=== PATIENT | female | born 1935 | race Caucasian/White ===

== ENCOUNTER 2021-12-27 19:38 | Emergency (ER) | payer MEDICARE, OTHER ==
[~2021-12-27] VITALS: Ht 162.6 cm; Wt 93.9 kg
--- NOTE | 2021-12-27 20:19 | NUR ---
PATIENT FELIX ([facility] 56). RIGHT OUTER EYE PURPLISH DISCOLORATION FROM SNF. PATIENT IS A/O, PT ON VENT, VSS. PATIENT TAKEN TO ER BED 09. PATIENT CONNECTED TO MONITORS.
--- NOTE | 2021-12-27 20:22 | NUR ---
VENT SETTING: AC16, VT 400, 02 40%, +5
--- NOTE | 2021-12-27 21:32 | NUR ---
return from [place]
--- NOTE | 2021-12-27 22:10 | NUR ---
[facility] CALLED FOR BLS GOING BACK TO SNF PER JO - ETA 60 MIN
--- NOTE | 2021-12-27 22:33 | NUR ---
Report given to jordana Lopez at the Replaced by [facility].
--- NOTE | 2021-12-28 00:23 | NUR ---
[facility] CALLED FOR TRANSPORT. NO RT TRANSPORT AVAILABLE.
--- NOTE | 2021-12-28 08:02 | NUR ---
[facility] CALLED FOR TRANSPORT, NO ALS TRANSPORT AVAILABLE.
--- NOTE | 2021-12-28 08:08 | NUR ---
CALLED [facility] AND [facility], NEITHER HAVE RT AVAILABLE FOR TRANSPORT.
--- NOTE | 2021-12-28 08:19 | NUR ---
[facility] CALLED FOR RT TRANSPORT, ETA 1215.
--- NOTE | 2021-12-28 09:19 | NUR ---
PICKED UP BY [facility] WITH RT IN STABLE CONDITION
[2021-12-28 09:23] VITALS: BP 131/72
== END 2021-12-28 09:39 ==
LOC: ER 20:05
DX: S00.11XA Contusion of right eyelid and periocular area, initial encounter (principal); I11.0 Hypertensive heart disease with heart failure; I13.2 Hypertensive heart and chronic kidney disease with heart failure and with stage 5 chronic kidney disease, or end stage renal disease; N18.6 End stage renal disease; I50.9 Heart failure, unspecified; I48.91 Unspecified atrial fibrillation; E78.5 Hyperlipidemia, unspecified; F41.9 Anxiety disorder, unspecified; F32.A Depression, unspecified; Z88.0 Allergy status to penicillin; Z88.8 Allergy status to other drugs, medicaments and biological substances; X58.XXXA Exposure to other specified factors, initial encounter; Y93.89 Activity, other specified; Y92.89 Other specified places as the place of occurrence of the external cause; Y99.8 Other external cause status
CPT/HCPCS: 31720; 70450-TC; 70486-TC; 94799-TC

== ENCOUNTER 2022-12-15 07:15 | Inpatient (IN) | payer MEDICARE, OTHER ==
[~2022-12-15] VITALS: Ht 165.1 cm; Wt 102.1 kg
[2022-12-15] MEDS ORDERED: IV NS 0.9% 500 ML BAG IV ONE (07:30)
[2022-12-15 07:42] LABS: BASOPHILS % (AUTO) 0.2 % (0.0-2.0); EOSINOPHILS # (AUTO) 0.2 K/uL (0.0-0.7); EOSINOPHILS % (AUTO) 1.1 % (0.0-6.0); HEMATOCRIT 26 % (33-45); HEMOGLOBIN 8.3 g/dL (11.5-14.8); LYMPHOCYTES % (AUTO) 4.6 % (20.0-44.0); MEAN CORPUSCULAR HEMOGLOBIN 30 PG (26.0-33.0); MEAN CORPUSCULAR HGB CONC 32 g/dl (31.0-36.0); MEAN CORPUSCULAR VOLUME 92 fL (82-100); MONOCYTES # (AUTO) 1.4 K/uL (0.1-1.30); MONOCYTES % (AUTO) 6.3 % (2.0-12.0); NEUTROPHILS % (AUTO) 87.8 % (43.0-81.0); PLATELET COUNT (AUTO) 171 K/uL (150-450); RED BLOOD CELL COUNT(AUTO) 2.83 MIL/uL (4.0-5.2); RED CELL DISTRIBUTION WIDTH 17.3 % (11.5-15.0); WHITE BLOOD COUNT (AUTO) 21.7 K/uL (4.3-11.0)
[2022-12-15 07:53] LABS: INR 1.08 (0.91-1.10); PARTIAL THROMBOPLASTIN TIME 48.3 SEC (24.3-34.3); PROTHROMBIN TIME 11.4 SECS (9.2-11.1)
[2022-12-15 08:07] LABS: CALCIUM, SERUM 8.7 mg/dL (8.5-10.1); CARBON DIOXIDE 29 mmol/L (21-32); CHLORIDE 91 mmol/L (98-107); CREATININE 3.4 mg/dL (0.6-1.3); GLUCOSE 76 mg/dL (74-106); POTASSIUM 3.6 mmol/L (3.5-5.1); SODIUM SERUM 127 mmol/L (136-145); UREA NITROGEN, BLOOD 77 mg/dL (7-18)
[2022-12-15 08:14] LABS: ALANINE AMINOTRANSFERASE 21 U/L (12-78); ALBUMIN 2.3 g/dL (3.4-5.0); ALKALINE PHOSPHATASE 89 U/L (46-116); ASPARTATE AMINOTRANSFERASE 24 U/L (15-37); BILIRUBIN,DIRECT 0.2 mg/dL (0.0-0.2); BILIRUBIN,TOTAL 0.5 mg/dL (0.2-1.0)
[2022-12-15 08:16] LABS: LACTIC ACID 1.3 mmol/L (0.4-2.0)
[2022-12-15] MEDS ORDERED: VANCOMYCIN 1 GM in IV D5W 250 ML IV ONE (08:30)
[2022-12-15] MEDS ORDERED: LEVOFLOXACIN 750 MG /D5W 150ML PIGGYBACK IV ONE (08:30)
[2022-12-15] MEDS ORDERED: LEVOFLOXACIN 750 MG /D5W 150ML 150 ML IV ONE (08:35)
[2022-12-15] MEDS ORDERED: LEVOFLOXACIN 750 MG /D5W 150ML 750 MG in PREMIX 1 EA IV ONE (09:00)
[2022-12-15 09:25] LABS: ANISOCYTOSIS 1+; BAND % (MANUAL) 3 % (0.0-5.0); EOSINOPHILS % (MANUAL) 1 % (0-4); LYMPHOCYTES % (MANUAL) 5 % (16-48); MONOCYTES % (MANUAL) 7 % (0-11.0); NEUTROPHILS % (MANUAL) 84 (42-76); PLATELET ESTIMATE ADEQU
[2022-12-15] MEDS ORDERED: DIPH25TA62 GT (10:27)
[2022-12-15] MEDS ORDERED: ONDA-97 GT (10:27)
[2022-12-15] MEDS ORDERED: PEG15DRO8 EACHEYE (10:27)
[2022-12-15] MEDS ORDERED: GLUC1KIT IM (10:27)
[2022-12-15] MEDS ORDERED: AMIO200T5 GT (10:27)
[2022-12-15] MEDS ORDERED: LACT1TAB13 GT (10:27)
[2022-12-15] MEDS ORDERED: AMIN30LI2 GT (10:27)
[2022-12-15] MEDS ORDERED: IPRA3AMP22 IH (10:27)
[2022-12-15] MEDS ORDERED: POVI3780 TP (10:27)
[2022-12-15] MEDS ORDERED: INSU100V11 SQ (10:27)
[2022-12-15] MEDS ORDERED: BUSP5TAB3 GT (10:27)
[2022-12-15] MEDS ORDERED: POLY17PO4 GT (10:27)
[2022-12-15] MEDS ORDERED: OMEP40CA21 GT (10:27)
[2022-12-15] MEDS ORDERED: CHLO473M5 MM (10:27)
[2022-12-15] MEDS ORDERED: MIDO2.5T PO (10:27)
[2022-12-15] MEDS ORDERED: ACET-2605 GT (10:27)
[2022-12-15] MEDS ORDERED: NAPH1POW3 GT (10:27)
[2022-12-15] MEDS ORDERED: CLON0.5T GT (10:27)
[2022-12-15] MEDS ORDERED: NUT.237L85 GT (10:27)
[2022-12-15] MEDS ORDERED: ACET-868 GT (10:27)
[2022-12-15] MEDS ORDERED: INSU100I30 SQ (10:27)
[2022-12-15] MEDS ORDERED: TRIAD TP (10:27)
[2022-12-15 20:00] VITALS: BP 98/44; TEMP 98.5; O2SAT 100
[2022-12-15] MEDS: clonazePAM 0.5 MG TABLET GT SCH (21:42)
[2022-12-15] MEDS: MIDODRINE HCL (5MG) 5 MG TABLET PO SCH (21:42)
[2022-12-15] MEDS: INSULIN GLARGINE, 100 UNIT/ML CARTRIDGE SQ SCH (22:00)
[2022-12-16] VITALS: BP 106/45; TEMP 98.4; O2SAT 100
[2022-12-16] MEDS: MIDODRINE HCL (5MG) 5 MG TABLET PO SCH ×3 (05:53→21:20)
[2022-12-16 06:00] VITALS: BP 105/65; TEMP 97.5; O2SAT 100
[2022-12-16 08:00] VITALS: BP 97/48; TEMP 97.9; O2SAT 100
[2022-12-16] MEDS: busPIRone 5 MG TABLET GT SCH ×2 (08:58→16:49)
[2022-12-16] MEDS: clonazePAM 0.5 MG TABLET GT SCH ×2 (08:59→21:20)
[2022-12-16] MEDS: AMIODARONE HCL 200 MG TABLET GT SCH (09:00)
[2022-12-16] MEDS ORDERED: MEROPENEM 500 MG in IV NS 0.9% 50 ML IV SCH (10:00)
[2022-12-16] MEDS ORDERED: ACETAMINOPHEN 325 MG TABLET PO PRN (10:00)
[2022-12-16] MEDS ORDERED: Z GUARD REMEDY 4 OZ OINT TP PRN (10:00)
[2022-12-16] MEDS ORDERED: ONDANSETRON HCL/PF 4 MG/2 ML VIAL IVP PRN (10:00)
[2022-12-16] MEDS ORDERED: VANCOMYCIN 500 MG in IV D5W 100 ML IV PRN (10:30)
[2022-12-16 11:39] LABS: LACTIC ACID 1.1 mmol/L (0.4-2.0)
[2022-12-16 11:43] LABS: THYROID STIMULATING HORMONE 2.394 uIU/mL (0.358-3.74)
[2022-12-16 12:00] VITALS: BP 97/48; TEMP 97.4; O2SAT 99
[2022-12-16 16:00] VITALS: BP 102/45; TEMP 98.4; O2SAT 99
[2022-12-16] MEDS: CLOTRIMAZOLE/BETAMETASONE DIPROPIONATE 15 GM TUBE TP SCH (16:50)
[2022-12-16] MEDS ORDERED: DEXTROSE 50%-WATER 50 ML DISP.SYRIN IV PRN (17:00)
[2022-12-16] MEDS ORDERED: diphenhydrAMINE HCL 50 MG/ML VIAL IV PRN (18:30)
[2022-12-16] MEDS: BLOOD SUGAR DIAGNOSTIC 1 EACH STRIP IN SCH (18:35)
[2022-12-16 20:00] VITALS: BP 101/60; TEMP 98.5; O2SAT 99
[2022-12-16] MEDS ORDERED: VANCOMYCIN 500 MG in IV D5W 100ml IV ONE (21:00)
[2022-12-16] MEDS: HEPARIN SODIUM, PORCINE 5000 UNITS/1 ML VIAL SQ SCH (21:24)
[2022-12-16] MEDS: INSULIN GLARGINE, 100 UNIT/ML CARTRIDGE SQ SCH (22:00)
[2022-12-16] MEDS: INSULIN REGULAR, HUMAN 100 UNIT/ML 3 ML VIAL SQ PRN (23:32)
[2022-12-17] VITALS: BP 105/65; TEMP 97.8; O2SAT 99
[2022-12-17 04:00] VITALS: BP_SYST 109; BP_SYST 110; BP_DIAS 66; BP_DIAS 75; TEMP 208.8; TEMP 97.5; TEMP 98.2; O2SAT 99
[2022-12-17 04:49] LABS: ABG BASE EXCESS 0.8 mmol/L; ABG OXYGEN SATURATION 98.9 % (92.0-98.5); ABG PCO2 39.2 mmHg (35.0-45.0); ABG PH 7.425 (7.350-7.450); ABG PO2 132.6 mmHg (75.0-100.0); ABG TOTAL HEMOGLOBIN 10.4 G/dL (12.0-16.0); AaDO2 71.4 mmHg; COHb 0.8 % (0.5-1.5); MetHb 0.1 % (0.0-1.5); PEEP,BG 5 cm H2O; SITE, ABG Left Radial; VT, ABG 400 mL
[2022-12-17] MEDS: MIDODRINE HCL (5MG) 5 MG TABLET PO SCH ×3 (05:39→21:33)
[2022-12-17 06:08] LABS: BASOPHILS % (AUTO) 0.3 % (0.0-2.0); EOSINOPHILS # (AUTO) 0.8 K/uL (0.0-0.7); EOSINOPHILS % (AUTO) 11.2 % (0.0-6.0); HEMATOCRIT 26 % (33-45); HEMOGLOBIN 8.5 g/dL (11.5-14.8); LYMPHOCYTES # (AUTO) 0.8 K/uL (0.8-4.8); LYMPHOCYTES % (AUTO) 10.1 % (20.0-44.0); MEAN CORPUSCULAR HEMOGLOBIN 29 PG (26.0-33.0); MEAN CORPUSCULAR HGB CONC 32 g/dl (31.0-36.0); MEAN CORPUSCULAR VOLUME 91 fL (82-100); MONOCYTES # (AUTO) 0.8 K/uL (0.1-1.30); MONOCYTES % (AUTO) 10.1 % (2.0-12.0); NEUTROPHILS # (AUTO) 5.1 K/uL (1.8-8.9); NEUTROPHILS % (AUTO) 68.3 % (43.0-81.0); PLATELET COUNT (AUTO) 164 K/uL (150-450); RED CELL DISTRIBUTION WIDTH 17.2 % (11.5-15.0); WHITE BLOOD COUNT (AUTO) 7.5 K/uL (4.3-11.0)
[2022-12-17] MEDS: INSULIN REGULAR, HUMAN 100 UNIT/ML 3 ML VIAL SQ PRN ×4 (06:29→23:22)
[2022-12-17] MEDS: BLOOD SUGAR DIAGNOSTIC 1 EACH STRIP IN SCH ×5 (06:36→23:19)
[2022-12-17 06:58] LABS: ALANINE AMINOTRANSFERASE 21 U/L (12-78); ALBUMIN 2.3 g/dL (3.4-5.0); ALKALINE PHOSPHATASE 80 U/L (46-116); ASPARTATE AMINOTRANSFERASE 20 U/L (15-37); BILIRUBIN,TOTAL 0.4 mg/dL (0.2-1.0); CALCIUM, SERUM 8.8 mg/dL (8.5-10.1); CARBON DIOXIDE 27 mmol/L (21-32); CHLORIDE 92 mmol/L (98-107); CREATININE 4.8 mg/dL (0.6-1.3); GLUCOSE 170 mg/dL (74-106); MAGNESIUM 2.5 mg/dL (1.8-2.4); PHOSPHORUS 5.1 mg/dL (2.5-4.9); POTASSIUM 3.9 mmol/L (3.5-5.1); SODIUM SERUM 131 mmol/L (136-145); TOTAL PROTEIN, SERUM 6.9 g/dL (6.4-8.2)
[2022-12-17 07:01] LABS: UREA NITROGEN, BLOOD 99 mg/dL (7-18)
[2022-12-17 07:03] LABS: IRON, SERUM 46 ug/dl (50-175); TOTAL IRON BINDING CAPACITY 140 ug/dl (250-450)
[2022-12-17 07:17] LABS: FERRITIN 4644 ng/mL (8-388)
[2022-12-17 08:00] VITALS: BP 114/58; TEMP 97.9; O2SAT 100
[2022-12-17] MEDS: THERAHONEY GEL 1.5 OZ TUBE TP SCH (08:07)
[2022-12-17] MEDS: CLOTRIMAZOLE/BETAMETASONE DIPROPIONATE 15 GM TUBE TP SCH ×2 (08:07→16:29)
[2022-12-17] MEDS: busPIRone 5 MG TABLET GT SCH ×2 (08:13→16:31)
[2022-12-17] MEDS: AMIODARONE HCL 200 MG TABLET GT SCH (08:13)
[2022-12-17] MEDS: clonazePAM 0.5 MG TABLET GT SCH ×2 (08:13→21:32)
[2022-12-17] MEDS: HEPARIN SODIUM, PORCINE 5000 UNITS/1 ML VIAL SQ SCH ×2 (08:15→21:34)
[2022-12-17] MEDS ORDERED: EPOETIN ALFA (10,000 UNIT) 10,000 UNIT/ML VIAL IV ONE ×2 (08:30→19:00)
[2022-12-17] MEDS: PROSOURCE / PROSTAT (PYXIS) 30 ML UDC GT SCH ×2 (10:04→16:29)
[2022-12-17] MEDS: MEROPENEM 500 MG in IV NS 0.9% 50 ML IV SCH (11:14)
[2022-12-17 12:00] VITALS: BP 110/49; TEMP 97.6; O2SAT 100
[2022-12-17 16:00] VITALS: BP 106/46; TEMP 99; O2SAT 100
[2022-12-17 18:00] LABS: HIV-1 p24 ANTIGEN NON REACTIVE (NONREACTIVE); HIV-1/2 ANTIBODY NON REACTIVE (NONREACTIVE)
[2022-12-17] MEDS ORDERED: EPOETIN ALFA-EPBX 10,000 UNIT/ML VIAL IV ONE (19:00)
[2022-12-17] MEDS: ALBUMIN 25% 25 GM in PREMIX 1 EA IV PRN (19:31)
[2022-12-17 20:00] VITALS: BP 98/49; TEMP 98; O2SAT 100
[2022-12-17] MEDS: NEPRO 1,000 ML BOTTLE GT PRN (23:01)
[2022-12-17] MEDS: INSULIN GLARGINE, 100 UNIT/ML CARTRIDGE SQ SCH (23:17)
[2022-12-18] VITALS: BP 121/49; TEMP 98.5; O2SAT 100
[2022-12-18 04:00] VITALS: BP 118/49; TEMP 98; O2SAT 100
[2022-12-18] MEDS: MIDODRINE HCL (5MG) 5 MG TABLET PO SCH ×3 (04:46→20:53)
[2022-12-18] MEDS: BLOOD SUGAR DIAGNOSTIC 1 EACH STRIP IN SCH ×4 (05:09→23:24)
[2022-12-18] MEDS: INSULIN REGULAR, HUMAN 100 UNIT/ML 3 ML VIAL SQ PRN ×3 (05:12→23:25)
[2022-12-18 06:21] LABS: BASOPHILS % (AUTO) 0.4 % (0.0-2.0); EOSINOPHILS # (AUTO) 0.6 K/uL (0.0-0.7); EOSINOPHILS % (AUTO) 10.7 % (0.0-6.0); HEMATOCRIT 27 % (33-45); HEMOGLOBIN 8.5 g/dL (11.5-14.8); LYMPHOCYTES # (AUTO) 0.6 K/uL (0.8-4.8); MEAN CORPUSCULAR HEMOGLOBIN 29 PG (26.0-33.0); MEAN CORPUSCULAR HGB CONC 32 g/dl (31.0-36.0); MEAN CORPUSCULAR VOLUME 92 fL (82-100); MONOCYTES # (AUTO) 0.6 K/uL (0.1-1.30); MONOCYTES % (AUTO) 11.2 % (2.0-12.0); NEUTROPHILS # (AUTO) 3.7 K/uL (1.8-8.9); NEUTROPHILS % (AUTO) 66.7 % (43.0-81.0); PLATELET COUNT (AUTO) 144 K/uL (150-450); RED BLOOD CELL COUNT(AUTO) 2.91 MIL/uL (4.0-5.2); RED CELL DISTRIBUTION WIDTH 17.3 % (11.5-15.0); WHITE BLOOD COUNT (AUTO) 5.5 K/uL (4.3-11.0)
[2022-12-18 06:49] LABS: ALANINE AMINOTRANSFERASE 16 U/L (12-78); ALBUMIN 2.5 g/dL (3.4-5.0); ALKALINE PHOSPHATASE 69 U/L (46-116); ASPARTATE AMINOTRANSFERASE 15 U/L (15-37); BILIRUBIN,TOTAL 0.3 mg/dL (0.2-1.0); CALCIUM, SERUM 8.8 mg/dL (8.5-10.1); CARBON DIOXIDE 26 mmol/L (21-32); CHLORIDE 102 mmol/L (98-107); CREATININE 3.2 mg/dL (0.6-1.3); GLUCOSE 222 mg/dL (74-106); MAGNESIUM 2.4 mg/dL (1.8-2.4); PHOSPHORUS 3.1 mg/dL (2.5-4.9); POTASSIUM 3.6 mmol/L (3.5-5.1); SODIUM SERUM 139 mmol/L (136-145); TOTAL PROTEIN, SERUM 6.7 g/dL (6.4-8.2); UREA NITROGEN, BLOOD 54 mg/dL (7-18)
[2022-12-18 08:00] VITALS: BP 113/56; TEMP 98.6; O2SAT 100
[2022-12-18] MEDS: clonazePAM 0.5 MG TABLET GT SCH ×2 (08:50→20:49)
[2022-12-18] MEDS: PROSOURCE / PROSTAT (PYXIS) 30 ML UDC GT SCH ×2 (08:51→18:25)
[2022-12-18] MEDS: busPIRone 5 MG TABLET GT SCH ×2 (08:51→18:27)
[2022-12-18] MEDS: AMIODARONE HCL 200 MG TABLET GT SCH (08:51)
[2022-12-18] MEDS: HEPARIN SODIUM, PORCINE 5000 UNITS/1 ML VIAL SQ SCH ×2 (08:51→20:54)
[2022-12-18] MEDS: CLOTRIMAZOLE/BETAMETASONE DIPROPIONATE 15 GM TUBE TP SCH ×2 (08:52→17:00)
[2022-12-18] MEDS: THERAHONEY GEL 1.5 OZ TUBE TP SCH (08:52)
[2022-12-18 12:00] VITALS: BP 118/61; TEMP 98.8; O2SAT 100
[2022-12-18] MEDS: MEROPENEM 500 MG in IV NS 0.9% 50 ML IV SCH (12:41)
[2022-12-18 16:00] VITALS: BP 123/52; TEMP 98.7; O2SAT 100
[2022-12-18 20:00] VITALS: BP 127/52; TEMP 99.2; O2SAT 100
[2022-12-18] MEDS: NEPRO 1,000 ML BOTTLE GT PRN (20:47)
[2022-12-18] MEDS: INSULIN GLARGINE, 100 UNIT/ML CARTRIDGE SQ SCH (23:30)
[2022-12-19] VITALS: BP 128/56; TEMP 99; O2SAT 98
[2022-12-19 04:00] VITALS: BP 132/63; TEMP 98.8; O2SAT 100
[2022-12-19] MEDS: MIDODRINE HCL (5MG) 5 MG TABLET PO SCH ×3 (05:14→21:00)
[2022-12-19] MEDS: BLOOD SUGAR DIAGNOSTIC 1 EACH STRIP IN SCH ×4 (05:44→23:28)
[2022-12-19 06:20] LABS: BASOPHILS % (AUTO) 0.4 % (0.0-2.0); EOSINOPHILS # (AUTO) 0.8 K/uL (0.0-0.7); EOSINOPHILS % (AUTO) 11.7 % (0.0-6.0); HEMATOCRIT 29 % (33-45); LYMPHOCYTES # (AUTO) 0.9 K/uL (0.8-4.8); LYMPHOCYTES % (AUTO) 13.1 % (20.0-44.0); MEAN CORPUSCULAR HEMOGLOBIN 29 PG (26.0-33.0); MEAN CORPUSCULAR HGB CONC 31 g/dl (31.0-36.0); MEAN CORPUSCULAR VOLUME 93 fL (82-100); MONOCYTES # (AUTO) 0.6 K/uL (0.1-1.30); MONOCYTES % (AUTO) 9.6 % (2.0-12.0); NEUTROPHILS # (AUTO) 4.2 K/uL (1.8-8.9); NEUTROPHILS % (AUTO) 65.2 % (43.0-81.0); PLATELET COUNT (AUTO) 158 K/uL (150-450); RED BLOOD CELL COUNT(AUTO) 3.08 MIL/uL (4.0-5.2); WHITE BLOOD COUNT (AUTO) 6.5 K/uL (4.3-11.0)
[2022-12-19] MEDS: INSULIN REGULAR, HUMAN 100 UNIT/ML 3 ML VIAL SQ PRN ×4 (06:27→23:29)
[2022-12-19 06:50] LABS: ALANINE AMINOTRANSFERASE 16 U/L (12-78); ALBUMIN 2.5 g/dL (3.4-5.0); ALKALINE PHOSPHATASE 67 U/L (46-116); ASPARTATE AMINOTRANSFERASE 11 U/L (15-37); BILIRUBIN,TOTAL 0.3 mg/dL (0.2-1.0); CALCIUM, SERUM 9.1 mg/dL (8.5-10.1); CARBON DIOXIDE 29 mmol/L (21-32); CHLORIDE 104 mmol/L (98-107); CREATININE 2.7 mg/dL (0.6-1.3); GLUCOSE 213 mg/dL (74-106); MAGNESIUM 2.2 mg/dL (1.8-2.4); PHOSPHORUS 2.7 mg/dL (2.5-4.9); POTASSIUM 3.8 mmol/L (3.5-5.1); SODIUM SERUM 141 mmol/L (136-145); UREA NITROGEN, BLOOD 38 mg/dL (7-18)
[2022-12-19 08:00] VITALS: BP 150/69; TEMP 98.4; O2SAT 100
[2022-12-19 08:34] LABS: ANISOCYTOSIS 1+; BAND % (MANUAL) 2 % (0.0-5.0); EOSINOPHILS % (MANUAL) 13 % (0-4); LYMPHOCYTES % (MANUAL) 11 % (16-48); MONOCYTES % (MANUAL) 9 % (0-11.0); MYELOCYTES % 2 % (0-0); NEUTROPHILS % (MANUAL) 63 (42-76); PLATELET ESTIMATE ADEQUATE
[2022-12-19] MEDS: PROSOURCE / PROSTAT (PYXIS) 30 ML UDC GT SCH ×2 (09:35→17:16)
[2022-12-19] MEDS: clonazePAM 0.5 MG TABLET GT SCH ×2 (09:35→21:44)
[2022-12-19] MEDS: HEPARIN SODIUM, PORCINE 5000 UNITS/1 ML VIAL SQ SCH ×2 (09:36→21:46)
[2022-12-19] MEDS: busPIRone 5 MG TABLET GT SCH ×2 (09:37→17:16)
[2022-12-19] MEDS: THERAHONEY GEL 1.5 OZ TUBE TP SCH (09:37)
[2022-12-19] MEDS: CLOTRIMAZOLE/BETAMETASONE DIPROPIONATE 15 GM TUBE TP SCH ×2 (09:37→17:16)
[2022-12-19] MEDS: AMIODARONE HCL 200 MG TABLET GT SCH (09:37)
[2022-12-19 12:00] VITALS: BP 134/54; TEMP 98; O2SAT 100
[2022-12-19] MEDS: MEROPENEM 500 MG in IV NS 0.9% 50 ML IV SCH (13:15)
[2022-12-19 16:00] VITALS: BP 131/49; TEMP 98; O2SAT 100
[2022-12-19] MEDS: IV NS 0.9% 1,000 ML IV PRN (16:22)
[2022-12-19 20:00] VITALS: BP 147/62; TEMP 98.4; O2SAT 100
[2022-12-19] MEDS: INSULIN GLARGINE, 100 UNIT/ML CARTRIDGE SQ SCH (23:30)
[2022-12-20] VITALS: BP 157/56; TEMP 97.8; O2SAT 100
[2022-12-20] MEDS: NEPRO 1,000 ML BOTTLE GT PRN (00:13)
[2022-12-20 04:07] VITALS: BP 109/71; TEMP 98.2; O2SAT 100
[2022-12-20] MEDS: BLOOD SUGAR DIAGNOSTIC 1 EACH STRIP IN SCH ×3 (05:08→16:31)
[2022-12-20] MEDS: MIDODRINE HCL (5MG) 5 MG TABLET PO SCH ×3 (05:10→20:56)
[2022-12-20] MEDS: INSULIN REGULAR, HUMAN 100 UNIT/ML 3 ML VIAL SQ PRN ×2 (05:11→11:45)
[2022-12-20 06:16] LABS: BASOPHILS % (AUTO) 0.3 % (0.0-2.0); EOSINOPHILS # (AUTO) 0.9 K/uL (0.0-0.7); HEMATOCRIT 28 % (33-45); HEMOGLOBIN 8.8 g/dL (11.5-14.8); LYMPHOCYTES % (AUTO) 11.4 % (20.0-44.0); MEAN CORPUSCULAR HEMOGLOBIN 29 PG (26.0-33.0); MEAN CORPUSCULAR HGB CONC 31 g/dl (31.0-36.0); MEAN CORPUSCULAR VOLUME 94 fL (82-100); MONOCYTES # (AUTO) 0.8 K/uL (0.1-1.30); MONOCYTES % (AUTO) 8.9 % (2.0-12.0); NEUTROPHILS # (AUTO) 6.3 K/uL (1.8-8.9); NEUTROPHILS % (AUTO) 69.4 % (43.0-81.0); PLATELET COUNT (AUTO) 178 K/uL (150-450); RED BLOOD CELL COUNT(AUTO) 3.02 MIL/uL (4.0-5.2); RED CELL DISTRIBUTION WIDTH 17.7 % (11.5-15.0); WHITE BLOOD COUNT (AUTO) 9.1 K/uL (4.3-11.0)
[2022-12-20 06:30] LABS: CALCIUM, SERUM 9.3 mg/dL (8.5-10.1); CARBON DIOXIDE 28 mmol/L (21-32); CHLORIDE 104 mmol/L (98-107); GLUCOSE 175 mg/dL (74-106); SODIUM SERUM 142 mmol/L (136-145)
[2022-12-20 06:31] LABS: ALANINE AMINOTRANSFERASE 14 U/L (12-78); ALBUMIN 2.5 g/dL (3.4-5.0); ALKALINE PHOSPHATASE 66 U/L (46-116); ASPARTATE AMINOTRANSFERASE 15 U/L (15-37); BILIRUBIN,TOTAL 0.3 mg/dL (0.2-1.0); CREATININE 3.4 mg/dL (0.6-1.3); MAGNESIUM 2.5 mg/dL (1.8-2.4); PHOSPHORUS 3.3 mg/dL (2.5-4.9); TOTAL PROTEIN, SERUM 6.9 g/dL (6.4-8.2); UREA NITROGEN, BLOOD 63 mg/dL (7-18)
[2022-12-20 08:00] VITALS: BP 148/82; TEMP 98.2; O2SAT 100
[2022-12-20 09:21] LABS: EOSINOPHILS % (MANUAL) 8 % (0-4); LYMPHOCYTES % (MANUAL) 9 % (16-48); MONOCYTES % (MANUAL) 5 % (0-11.0); MYELOCYTES % 5 % (0-0); NEUTROPHILS % (MANUAL) 73 (42-76); PLATELET ESTIMATE ADEQUATE
[2022-12-20] MEDS: clonazePAM 0.5 MG TABLET GT SCH ×2 (09:53→20:55)
[2022-12-20] MEDS: CLOTRIMAZOLE/BETAMETASONE DIPROPIONATE 15 GM TUBE TP SCH ×2 (09:53→16:34)
[2022-12-20] MEDS: THERAHONEY GEL 1.5 OZ TUBE TP SCH (09:53)
[2022-12-20] MEDS: busPIRone 5 MG TABLET GT SCH ×2 (09:53→16:32)
[2022-12-20] MEDS: PROSOURCE / PROSTAT (PYXIS) 30 ML UDC GT SCH ×2 (09:53→16:31)
[2022-12-20] MEDS: HEPARIN SODIUM, PORCINE 5000 UNITS/1 ML VIAL SQ SCH ×2 (09:55→21:00)
[2022-12-20] MEDS: AMIODARONE HCL 200 MG TABLET GT SCH (09:58)
[2022-12-20] MEDS: MEROPENEM 500 MG in IV NS 0.9% 50 ML IV SCH (11:43)
[2022-12-20 12:00] VITALS: BP 122/55; TEMP 98.3; O2SAT 100
[2022-12-20 16:00] VITALS: BP 122/72; TEMP 98.5; O2SAT 100
[2022-12-20] MEDS: IV NS 0.9% 1,000 ML IV PRN (16:31)
[2022-12-20 20:00] VITALS: BP 127/59; TEMP 98.4; O2SAT 100
[2022-12-20] MEDS: INSULIN GLARGINE, 100 UNIT/ML CARTRIDGE SQ SCH (22:34)
[2022-12-21] VITALS: BP 158/69; TEMP 98.4; O2SAT 100
[2022-12-21] MEDS: BLOOD SUGAR DIAGNOSTIC 1 EACH STRIP IN SCH ×4 (00:42→18:04)
[2022-12-21] MEDS: INSULIN REGULAR, HUMAN 100 UNIT/ML 3 ML VIAL SQ PRN (00:44)
[2022-12-21 04:00] VITALS: BP 145/63; TEMP 98.1; O2SAT 100
[2022-12-21] MEDS: IV NS 0.9% 1,000 ML IV PRN (04:57)
[2022-12-21] MEDS: MIDODRINE HCL (5MG) 5 MG TABLET PO SCH ×3 (05:17→20:56)
[2022-12-21 06:22] LABS: BASOPHILS % (AUTO) 0.4 % (0.0-2.0); EOSINOPHILS # (AUTO) 1.1 K/uL (0.0-0.7); HEMATOCRIT 29 % (33-45); HEMOGLOBIN 9.1 g/dL (11.5-14.8); LYMPHOCYTES # (AUTO) 1.3 K/uL (0.8-4.8); LYMPHOCYTES % (AUTO) 13.1 % (20.0-44.0); MEAN CORPUSCULAR HEMOGLOBIN 30 PG (26.0-33.0); MEAN CORPUSCULAR HGB CONC 31 g/dl (31.0-36.0); MEAN CORPUSCULAR VOLUME 96 fL (82-100); MONOCYTES # (AUTO) 0.7 K/uL (0.1-1.30); MONOCYTES % (AUTO) 7.3 % (2.0-12.0); NEUTROPHILS # (AUTO) 6.6 K/uL (1.8-8.9); NEUTROPHILS % (AUTO) 68.2 % (43.0-81.0); PLATELET COUNT (AUTO) 176 K/uL (150-450); RED BLOOD CELL COUNT(AUTO) 3.08 MIL/uL (4.0-5.2); RED CELL DISTRIBUTION WIDTH 17.9 % (11.5-15.0); WHITE BLOOD COUNT (AUTO) 9.7 K/uL (4.3-11.0)
[2022-12-21 06:40] LABS: ALANINE AMINOTRANSFERASE 16 U/L (12-78); ALBUMIN 2.5 g/dL (3.4-5.0); ALKALINE PHOSPHATASE 65 U/L (46-116); ASPARTATE AMINOTRANSFERASE 16 U/L (15-37); BILIRUBIN,TOTAL 0.4 mg/dL (0.2-1.0); CALCIUM, SERUM 8.6 mg/dL (8.5-10.1); CARBON DIOXIDE 26 mmol/L (21-32); CHLORIDE 107 mmol/L (98-107); CREATININE 2.8 mg/dL (0.6-1.3); GLUCOSE 125 mg/dL (74-106); MAGNESIUM 2.1 mg/dL (1.8-2.4); PHOSPHORUS 3.4 mg/dL (2.5-4.9); POTASSIUM 3.9 mmol/L (3.5-5.1); SODIUM SERUM 141 mmol/L (136-145); TOTAL PROTEIN, SERUM 7.1 g/dL (6.4-8.2); UREA NITROGEN, BLOOD 47 mg/dL (7-18)
[2022-12-21 07:34] LABS: EOSINOPHILS % (MANUAL) 3 % (0-4); LYMPHOCYTES % (MANUAL) 18 % (16-48); MONOCYTES % (MANUAL) 8 % (0-11.0); NEUTROPHILS % (MANUAL) 71 (42-76); PLATELET ESTIMATE ADEQUATE
[2022-12-21 08:00] VITALS: BP 145/66; TEMP 98.4; O2SAT 100
[2022-12-21] MEDS: busPIRone 5 MG TABLET GT SCH ×2 (09:31→16:29)
[2022-12-21] MEDS: PROSOURCE / PROSTAT (PYXIS) 30 ML UDC GT SCH ×2 (09:32→16:31)
[2022-12-21] MEDS: clonazePAM 0.5 MG TABLET GT SCH ×2 (09:32→20:56)
[2022-12-21] MEDS: THERAHONEY GEL 1.5 OZ TUBE TP SCH (09:40)
[2022-12-21] MEDS: CLOTRIMAZOLE/BETAMETASONE DIPROPIONATE 15 GM TUBE TP SCH ×2 (09:40→16:32)
[2022-12-21] MEDS: HEPARIN SODIUM, PORCINE 5000 UNITS/1 ML VIAL SQ SCH ×2 (09:43→20:58)
[2022-12-21] MEDS: AMIODARONE HCL 200 MG TABLET GT SCH (09:49)
[2022-12-21 12:00] VITALS: BP 127/57; TEMP 97.5; O2SAT 100
[2022-12-21] MEDS: MEROPENEM 500 MG in IV NS 0.9% 50 ML IV SCH (12:13)
[2022-12-21 16:00] VITALS: BP 139/66; TEMP 97.5; O2SAT 100
[2022-12-21 20:00] VITALS: BP 122/49; TEMP 98.6; O2SAT 98
[2022-12-21] MEDS: NEPRO 1,000 ML BOTTLE GT PRN (20:18)
[2022-12-21] MEDS: INSULIN GLARGINE, 100 UNIT/ML CARTRIDGE SQ SCH (22:53)
[2022-12-22] VITALS: BP 130/62; TEMP 98.2; O2SAT 100
[2022-12-22] MEDS: BLOOD SUGAR DIAGNOSTIC 1 EACH STRIP IN SCH ×4 (01:19→17:45)
[2022-12-22] MEDS: INSULIN REGULAR, HUMAN 100 UNIT/ML 3 ML VIAL SQ PRN ×4 (01:19→17:48)
[2022-12-22 04:00] VITALS: BP 152/66; TEMP 98; O2SAT 98
[2022-12-22] MEDS: MIDODRINE HCL (5MG) 5 MG TABLET PO SCH ×2 (05:00→12:42)
[2022-12-22 07:00] LABS: BASOPHILS % (AUTO) 0.3 % (0.0-2.0); EOSINOPHILS # (AUTO) 1.2 K/uL (0.0-0.7); EOSINOPHILS % (AUTO) 12.9 % (0.0-6.0); HEMATOCRIT 30 % (33-45); HEMOGLOBIN 9.2 g/dL (11.5-14.8); LYMPHOCYTES # (AUTO) 1.1 K/uL (0.8-4.8); LYMPHOCYTES % (AUTO) 11.6 % (20.0-44.0); MEAN CORPUSCULAR HEMOGLOBIN 29 PG (26.0-33.0); MEAN CORPUSCULAR HGB CONC 31 g/dl (31.0-36.0); MEAN CORPUSCULAR VOLUME 95 fL (82-100); MONOCYTES # (AUTO) 0.5 K/uL (0.1-1.30); MONOCYTES % (AUTO) 5.2 % (2.0-12.0); NEUTROPHILS # (AUTO) 6.5 K/uL (1.8-8.9); PLATELET COUNT (AUTO) 206 K/uL (150-450); RED BLOOD CELL COUNT(AUTO) 3.15 MIL/uL (4.0-5.2); RED CELL DISTRIBUTION WIDTH 17.6 % (11.5-15.0); WHITE BLOOD COUNT (AUTO) 9.3 K/uL (4.3-11.0)
[2022-12-22 07:15] LABS: ALANINE AMINOTRANSFERASE 16 U/L (12-78); ALBUMIN 2.6 g/dL (3.4-5.0); ALKALINE PHOSPHATASE 68 U/L (46-116); ASPARTATE AMINOTRANSFERASE 15 U/L (15-37); BILIRUBIN,TOTAL 0.4 mg/dL (0.2-1.0); CARBON DIOXIDE 24 mmol/L (21-32); CHLORIDE 108 mmol/L (98-107); CREATININE 3.5 mg/dL (0.6-1.3); GLUCOSE 157 mg/dL (74-106); MAGNESIUM 2.4 mg/dL (1.8-2.4); PHOSPHORUS 4.8 mg/dL (2.5-4.9); POTASSIUM 4.2 mmol/L (3.5-5.1); SODIUM SERUM 143 mmol/L (136-145); TOTAL PROTEIN, SERUM 7.1 g/dL (6.4-8.2); UREA NITROGEN, BLOOD 63 mg/dL (7-18)
[2022-12-22 08:00] VITALS: BP 154/53; TEMP 98; O2SAT 98
[2022-12-22] MEDS: THERAHONEY GEL 1.5 OZ TUBE TP SCH (09:01)
[2022-12-22] MEDS: CLOTRIMAZOLE/BETAMETASONE DIPROPIONATE 15 GM TUBE TP SCH ×2 (09:01→16:46)
[2022-12-22] MEDS: PROSOURCE / PROSTAT (PYXIS) 30 ML UDC GT SCH ×2 (09:07→16:46)
[2022-12-22] MEDS: AMIODARONE HCL 200 MG TABLET GT SCH (09:07)
[2022-12-22] MEDS: clonazePAM 0.5 MG TABLET GT SCH (09:07)
[2022-12-22] MEDS: busPIRone 5 MG TABLET GT SCH ×2 (09:07→17:00)
[2022-12-22] MEDS: HEPARIN SODIUM, PORCINE 5000 UNITS/1 ML VIAL SQ SCH (09:08)
[2022-12-22 09:56] LABS: EOSINOPHILS % (MANUAL) 15 % (0-4); LYMPHOCYTES % (MANUAL) 10 % (16-48); MONOCYTES % (MANUAL) 6 % (0-11.0); MYELOCYTES % 1 % (0-0); NEUTROPHILS % (MANUAL) 68 (42-76); PLATELET ESTIMATE ADEQUATE
[2022-12-22 12:00] VITALS: BP 117/48; TEMP 98.1; O2SAT 99
[2022-12-22] MEDS: ALBUMIN 25% 25 GM in PREMIX 1 EA IV PRN (15:41)
[2022-12-22 16:00] VITALS: BP 125/45; TEMP 98.4; O2SAT 100
[2022-12-23 02:07] LABS: HEPATITIS B SURFACE AB Non Reactive (.)
== END 2022-12-22 20:07 | DRG 870 ==
LOC: ER 07:29 → TELE-TD 20:12 → TELE1 12-18 09:53
PROVIDERS: ADMIT Nurse Practitioner Acute Care
PROC: 5A1955Z Respiratory Ventilation, Greater than 96 Consecutive Hours (ICD-10-PCS; principal; 2022-12-15)
PROC: 5A1D70Z Performance of Urinary Filtration, Intermittent, Less than 6 Hours Per Day (ICD-10-PCS; 2022-12-17)
PROC: 05HF33Z Insertion of Infusion Device into Left Cephalic Vein, Percutaneous Approach (ICD-10-PCS; 2022-12-20)
DX: A41.9 Sepsis, unspecified organism (principal); L89.523 Pressure ulcer of left ankle, stage 3; J15.69 Pneumonia due to other Gram-negative bacteria; I21.A1 Myocardial infarction type 2; N18.6 End stage renal disease; R53.2 Functional quadriplegia; D68.59 Other primary thrombophilia; J96.10 Chronic respiratory failure, unspecified whether with hypoxia or hypercapnia; I13.2 Hypertensive heart and chronic kidney disease with heart failure and with stage 5 chronic kidney disease, or end stage renal disease; Z99.11 Dependence on respirator [ventilator] status; J90 Pleural effusion, not elsewhere classified; E87.1 Hypo-osmolality and hyponatremia; G93.49 Other encephalopathy; D68.9 Coagulation defect, unspecified; Z20.822 Contact with and (suspected) exposure to COVID-19; I95.3 Hypotension of hemodialysis; I50.9 Heart failure, unspecified; Z99.2 Dependence on renal dialysis; Z93.0 Tracheostomy status; Z93.1 Gastrostomy status; R13.10 Dysphagia, unspecified; E78.5 Hyperlipidemia, unspecified; Z85.038 Personal history of other malignant neoplasm of large intestine; F41.9 Anxiety disorder, unspecified; F32.A Depression, unspecified; F29 Unspecified psychosis not due to a substance or known physiological condition; Z88.0 Allergy status to penicillin; Z88.5 Allergy status to narcotic agent; Z88.8 Allergy status to other drugs, medicaments and biological substances; E11.22 Type 2 diabetes mellitus with diabetic chronic kidney disease; D64.9 Anemia, unspecified; E88.09 Other disorders of plasma-protein metabolism, not elsewhere classified; I48.91 Unspecified atrial fibrillation; M24.571 Contracture, right ankle; M24.572 Contracture, left ankle; Z78.1 Physical restraint status; I70.0 Atherosclerosis of aorta; G31.84 Mild cognitive impairment of uncertain or unknown etiology; Z79.4 Long term (current) use of insulin; Z79.899 Other long term (current) drug therapy; Z79.51 Long term (current) use of inhaled steroids; L89.890 Pressure ulcer of other site, unstageable
CPT/HCPCS: 31720; 36415; 36600; 71045-TC; 80048-TC; 80053-TC; 80061-TC; 80076-TC; 80202-TC; 82607-TC; 82728-TC; 82962-TC; 83540-TC; 83605-TC; 83735-TC; 84100-TC; 84443-TC; 84484-TC; 85025-TC; 85385-TC; 85730-TC; 86706; 86803; 87040-TC; 87081-TC; 87340; 87806; 90935-TC; 93307-TC; 94003-TC; 94760-TC; 94799-TC; 99082-TC; A4216; A4223; G0378; J0885; J1644; J1815; J1956; J2185; J3370; J7030; J7040; J7060; P9047

== ENCOUNTER 2023-03-11 09:47 | Inpatient (IN) | payer MEDICARE, OTHER ==
[~2023-03-11] VITALS: Ht 165.1 cm; Wt 120.2 kg
[~2023-03-11 09:47] MED LIST: ACET-2605 GT; ACET-868 GT; AMIN30LI2 GT; AMIO200T5 GT; BUSP5TAB3 GT; CHLO473M5 MM; CLON0.5T GT; DIPH25TA62 GT; GLUC1KIT IM; INSU100I30 SQ; INSU100V11 SQ; IPRA3AMP22 IH; LACT1TAB13 GT; MIDO2.5T PO; NAPH1POW3 GT; NUT.237L85 GT; OMEP40CA21 GT; ONDA-97 GT; PEG15DRO8 EACHEYE; POLY17PO4 GT; POVI3780 TP; TRIAD TP
[2023-03-11] MEDS ORDERED: MIDODRINE HCL (5MG) 5 MG TABLET PO SCH (10:00)
[2023-03-11] MEDS ORDERED: MIDODRINE HCL (5MG) 5 MG TABLET ONE (10:04)
[2023-03-11 10:39] LABS: CALCIUM, SERUM 8.4 mg/dL (8.5-10.1); CARBON DIOXIDE 26 mmol/L (21-32); CHLORIDE 96 mmol/L (98-107); CREATININE 1.6 mg/dL (0.6-1.3); GLUCOSE 167 mg/dL (74-106); POTASSIUM 2.9 mmol/L (3.5-5.1); SODIUM SERUM 128 mmol/L (136-145); UREA NITROGEN, BLOOD 35 mg/dL (7-18)
[2023-03-11 10:44] LABS: ALANINE AMINOTRANSFERASE 8 U/L (12-78); ALKALINE PHOSPHATASE 88 U/L (46-116); ASPARTATE AMINOTRANSFERASE 13 U/L (15-37); BILIRUBIN,TOTAL 0.3 mg/dL (0.2-1.0); TOTAL PROTEIN, SERUM 7.2 g/dL (6.4-8.2)
[2023-03-11 11:10] LABS: BASOPHILS # (AUTO) 0.1 K/uL (0.0-0.2); BASOPHILS % (AUTO) 0.3 % (0.0-2.0); EOSINOPHILS # (AUTO) 0.3 K/uL (0.0-0.7); HEMATOCRIT 28 % (33-45); HEMOGLOBIN 8.5 g/dL (11.5-14.8); LYMPHOCYTES # (AUTO) 1.1 K/uL (0.8-4.8); MEAN CORPUSCULAR HEMOGLOBIN 29 PG (26.0-33.0); MEAN CORPUSCULAR HGB CONC 31 g/dl (31.0-36.0); MEAN CORPUSCULAR VOLUME 95 fL (82-100); MONOCYTES # (AUTO) 1.2 K/uL (0.1-1.30); MONOCYTES % (AUTO) 7.6 % (2.0-12.0); NEUTROPHILS # (AUTO) 12.7 K/uL (1.8-8.9); NEUTROPHILS % (AUTO) 83.1 % (43.0-81.0); PLATELET COUNT (AUTO) 204 K/uL (150-450); RED BLOOD CELL COUNT(AUTO) 2.92 MIL/uL (4.0-5.2); RED CELL DISTRIBUTION WIDTH 17.1 % (11.5-15.0); WHITE BLOOD COUNT (AUTO) 15.3 K/uL (4.3-11.0)
[2023-03-11] MEDS ORDERED: ASCO-495 GT (12:56)
[2023-03-11] MEDS ORDERED: NYST500P2 TP (12:56)
[2023-03-11] MEDS ORDERED: NEOM28.43 TP (12:56)
[2023-03-11] MEDS ORDERED: LEVO500T90 GT (12:56)
[2023-03-11] MEDS ORDERED: *INS REG3 SQ (12:56)
[2023-03-11] MEDS ORDERED: NORM10VI2 IV (12:56)
[2023-03-11] MEDS ORDERED: IPRA3AMP22 IH (12:56)
[2023-03-11] MEDS ORDERED: ARGI1POW13 GT (12:56)
[2023-03-11] MEDS ORDERED: HEPA50008 SQ (12:56)
[2023-03-11] MEDS ORDERED: PETR113O TP (12:56)
[2023-03-11 20:00] VITALS: BP 154/78; TEMP 98; O2SAT 100
[2023-03-11] MEDS ORDERED: ACETAMINOPHEN 325 MG TABLET PO PRN (20:30)
[2023-03-11] MEDS ORDERED: IV NS 0.9% 1,000 ML IV PRN (20:30)
[2023-03-11] MEDS ORDERED: ONDANSETRON HCL/PF 4 MG/2 ML VIAL IVP PRN (20:30)
[2023-03-11] MEDS ORDERED: VANCOMYCIN HCL 0.75 GM in IV D5W 250 ML IV SCH (21:00)
[2023-03-11] MEDS: MIDODRINE HCL 2.5 MG TABLET PO SCH (21:00)
[2023-03-11] MEDS: CHLORHEXIDINE GLUCONATE 15 ML UDC MM SCH (21:16)
[2023-03-11] MEDS: INSULIN GLARGINE, 100 UNIT/ML CARTRIDGE SQ SCH (22:00)
[2023-03-11] MEDS ORDERED: MEROPENEM 1 G in IV NS 0.9% 100 ML IV SCH (22:00)
[2023-03-11] MEDS: LACTOBACILLUS RHAMNOSUS GG 1 EACH CAP.SPRINK PO SCH (22:25)
[2023-03-11] MEDS: HEPARIN SODIUM, PORCINE 5000 UNITS/1 ML VIAL SQ SCH (22:27)
[2023-03-11] MEDS: NEPRO 1,000 ML BOTTLE GT PRN (23:17)
[2023-03-12] VITALS: BP 139/61; TEMP 98.2; O2SAT 100
[2023-03-12 02:57] VITALS: BP 154/78; TEMP 98; O2SAT 100
[2023-03-12 04:00] VITALS: BP 121/53; TEMP 99; O2SAT 100
[2023-03-12] MEDS: MIDODRINE HCL 2.5 MG TABLET PO SCH (04:22)
[2023-03-12 06:47] LABS: BASOPHILS % (AUTO) 0.2 % (0.0-2.0); EOSINOPHILS # (AUTO) 0.5 K/uL (0.0-0.7); HEMATOCRIT 30 % (33-45); LYMPHOCYTES # (AUTO) 0.9 K/uL (0.8-4.8); LYMPHOCYTES % (AUTO) 7.3 % (20.0-44.0); MEAN CORPUSCULAR HEMOGLOBIN 29 PG (26.0-33.0); MEAN CORPUSCULAR HGB CONC 31 g/dl (31.0-36.0); MEAN CORPUSCULAR VOLUME 95 fL (82-100); MONOCYTES # (AUTO) 0.9 K/uL (0.1-1.30); MONOCYTES % (AUTO) 7.2 % (2.0-12.0); NEUTROPHILS # (AUTO) 10.3 K/uL (1.8-8.9); NEUTROPHILS % (AUTO) 81.3 % (43.0-81.0); PLATELET COUNT (AUTO) 238 K/uL (150-450); RED BLOOD CELL COUNT(AUTO) 3.11 MIL/uL (4.0-5.2); RED CELL DISTRIBUTION WIDTH 17.2 % (11.5-15.0); WHITE BLOOD COUNT (AUTO) 12.7 K/uL (4.3-11.0)
[2023-03-12 07:04] LABS: CARBON DIOXIDE 26 mmol/L (21-32); CHLORIDE 94 mmol/L (98-107); CREATININE 2.4 mg/dL (0.6-1.3); GLUCOSE 227 mg/dL (74-106); MAGNESIUM 2.2 mg/dL (1.8-2.4); PHOSPHORUS 3.2 mg/dL (2.5-4.9); POTASSIUM 3.2 mmol/L (3.5-5.1); SODIUM SERUM 128 mmol/L (136-145); UREA NITROGEN, BLOOD 57 mg/dL (7-18)
[2023-03-12] MEDS ORDERED: ASCORBIC ACID 250 MG TABLET NG SCH (09:00)
[2023-03-12] MEDS: AMIODARONE HCL 200 MG TABLET GT SCH (09:00)
[2023-03-12] MEDS ORDERED: Z GUARD REMEDY 4 OZ OINT TP PRN (09:30)
[2023-03-12] MEDS: LACTOBACILLUS RHAMNOSUS GG 1 EACH CAP.SPRINK PO SCH ×2 (09:47→17:21)
[2023-03-12] MEDS: CHLORHEXIDINE GLUCONATE 15 ML UDC MM SCH ×2 (09:48→17:21)
[2023-03-12] MEDS: HEPARIN SODIUM, PORCINE 5000 UNITS/1 ML VIAL SQ SCH ×2 (09:49→21:59)
[2023-03-12] MEDS: Z GUARD REMEDY 4 OZ OINT TP SCH (09:50)
[2023-03-12 12:24] LABS: ANISOCYTOSIS 1+; BASOPHILS % (MANUAL) 0 % (0.0-2.0); EOSINOPHILS % (MANUAL) 2 % (0-4); LYMPHOCYTES % (MANUAL) 12 % (16-48); MONOCYTES % (MANUAL) 7 % (0-11.0); NEUTROPHILS % (MANUAL) 79 (42-76); PLATELET ESTIMATE ADEQUATE
[2023-03-12] MEDS: POTASSIUM CL. PREMIX PERIPHER. 50 ML IV SCH ×2 (14:44→17:07)
[2023-03-12] MEDS: MIDODRINE HCL (5MG) 5 MG TABLET PO SCH ×2 (14:46→21:00)
[2023-03-12] MEDS ORDERED: VANCOMYCIN 500 MG in IV D5W 100ml IV ONE (15:00)
[2023-03-12] MEDS ORDERED: POTASSIUM CHLORIDE 20 MEQ TAB.PRT.SR PO ONE (15:30)
[2023-03-12] MEDS: CLOTRIMAZOLE 1% 15 GM TUBE TP SCH (17:22)
[2023-03-12 20:00] VITALS: BP 123/49; TEMP 99.9; O2SAT 100
[2023-03-12] MEDS: NEPRO 1,000 ML BOTTLE GT PRN (22:00)
[2023-03-12] MEDS: MEROPENEM 1 G in IV NS 0.9% 100 ML IV SCH (22:02)
[2023-03-12] MEDS: INSULIN GLARGINE, 100 UNIT/ML CARTRIDGE SQ SCH (22:42)
[2023-03-13] VITALS (26 sets, daily range): BP systolic 87–146; BP diastolic 33–100; TEMP 97.8–99.5; O2SAT 90–100
[2023-03-13] MEDS: MIDODRINE HCL (5MG) 5 MG TABLET PO SCH ×3 (05:25→20:39)
[2023-03-13 07:16] LABS: BASOPHILS # (AUTO) 0.1 K/uL (0.0-0.2); BASOPHILS % (AUTO) 0.5 % (0.0-2.0); EOSINOPHILS # (AUTO) 0.8 K/uL (0.0-0.7); EOSINOPHILS % (AUTO) 5.1 % (0.0-6.0); HEMATOCRIT 31 % (33-45); HEMOGLOBIN 9.4 g/dL (11.5-14.8); LYMPHOCYTES # (AUTO) 1.9 K/uL (0.8-4.8); LYMPHOCYTES % (AUTO) 12.4 % (20.0-44.0); MEAN CORPUSCULAR HEMOGLOBIN 30 PG (26.0-33.0); MEAN CORPUSCULAR HGB CONC 31 g/dl (31.0-36.0); MEAN CORPUSCULAR VOLUME 98 fL (82-100); MONOCYTES # (AUTO) 1.2 K/uL (0.1-1.30); MONOCYTES % (AUTO) 8.1 % (2.0-12.0); NEUTROPHILS # (AUTO) 11.3 K/uL (1.8-8.9); NEUTROPHILS % (AUTO) 73.9 % (43.0-81.0); PLATELET COUNT (AUTO) 269 K/uL (150-450); RED BLOOD CELL COUNT(AUTO) 3.13 MIL/uL (4.0-5.2); RED CELL DISTRIBUTION WIDTH 17.5 % (11.5-15.0); WHITE BLOOD COUNT (AUTO) 15.2 K/uL (4.3-11.0)
[2023-03-13 08:57] LABS: CALCIUM, SERUM 8.8 mg/dL (8.5-10.1); CARBON DIOXIDE 20 mmol/L (21-32); CHLORIDE 95 mmol/L (98-107); CREATININE 3.3 mg/dL (0.6-1.3); GLUCOSE 222 mg/dL (74-106); MAGNESIUM 2.4 mg/dL (1.8-2.4); PHOSPHORUS 4.4 mg/dL (2.5-4.9); POTASSIUM 4.4 mmol/L (3.5-5.1); SODIUM SERUM 127 mmol/L (136-145); UREA NITROGEN, BLOOD 74 mg/dL (7-18)
[2023-03-13] MEDS: POTASSIUM CL. PREMIX PERIPHER. 50 ML IV SCH (09:31)
[2023-03-13] MEDS: LACTOBACILLUS RHAMNOSUS GG 1 EACH CAP.SPRINK PO SCH ×2 (09:35→17:00)
[2023-03-13] MEDS: AMIODARONE HCL 200 MG TABLET GT SCH (09:37)
[2023-03-13] MEDS: CHLORHEXIDINE GLUCONATE 15 ML UDC MM SCH ×2 (09:37→17:16)
[2023-03-13] MEDS: ASCORBIC ACID 500 MG TABLET NG SCH (09:37)
[2023-03-13] MEDS: HEPARIN SODIUM, PORCINE 5000 UNITS/1 ML VIAL SQ SCH ×2 (09:42→20:41)
[2023-03-13] MEDS: Z GUARD REMEDY 4 OZ OINT TP SCH (09:43)
[2023-03-13] MEDS: CLOTRIMAZOLE 1% 15 GM TUBE TP SCH ×2 (09:44→17:16)
[2023-03-13] MEDS: NEOMY SULF/BACITRAC ZN/POLY 15 GM TUBE TP SCH (09:44)
[2023-03-13] MEDS ORDERED: VANCOMYCIN 500 MG in IV D5W 100ml IV ONE (11:00)
[2023-03-13] MEDS ORDERED: EPOETIN ALFA (10,000 UNIT) 10,000 UNIT/ML VIAL IV ONE (15:30)
[2023-03-13] MEDS ORDERED: EPINEPHRINE (1:10,000) SYRINGE 1 MG/10 ML DISP.SYRIN IVP ONE (16:02)
[2023-03-13] MEDS ORDERED: CALCIUM CHLORIDE 1,000 MG/10 ML DISP.SYRIN IV ONE (16:02)
[2023-03-13] MEDS ORDERED: SODIUM BICARBONATE SYR 50 MEQ/50 ML DISP.SYRIN IV ONE (16:02)
[2023-03-13] MEDS ORDERED: CEFAZOLIN 1 GM in IV D5W 50 ML IV STA (17:06)
[2023-03-13] MEDS: NOREPINEPHRINE 32 MG in IV NS 0.9% 218 ML IV PRN (17:21)
[2023-03-13 17:24] LABS: ABG BASE EXCESS 3.3 mmol/L; ABG OXYGEN SATURATION 99.5 % (92.0-98.5); ABG PCO2 70.2 mmHg (35.0-45.0); ABG PH 7.272 (7.350-7.450); ABG PO2 252.1 mmHg (75.0-100.0); ABG TOTAL HEMOGLOBIN 10.6 G/dL (12.0-16.0); AaDO2 390.7 mmHg; COHb 0.2 % (0.5-1.5); MetHb 0.3 % (0.0-1.5); SITE, ABG Right Radial; VENT MODE, BG AC 28 400 100% +5
[2023-03-13 21:41] LABS: HEMATOCRIT 33 % (33-45); HEMOGLOBIN 9.7 g/dL (11.5-14.8); LYMPHOCYTES # (AUTO) 0.8 K/uL (0.8-4.8); LYMPHOCYTES % (AUTO) 1.6 % (20.0-44.0); MEAN CORPUSCULAR HEMOGLOBIN 28 PG (26.0-33.0); MEAN CORPUSCULAR HGB CONC 29 g/dl (31.0-36.0); MEAN CORPUSCULAR VOLUME 96 fL (82-100); MONOCYTES # (AUTO) 2.5 K/uL (0.1-1.30); MONOCYTES % (AUTO) 5.2 % (2.0-12.0); NEUTROPHILS # (AUTO) 45.7 K/uL (1.8-8.9); NEUTROPHILS % (AUTO) 93.2 % (43.0-81.0); PLATELET COUNT (AUTO) 356 K/uL (150-450); RED BLOOD CELL COUNT(AUTO) 3.42 MIL/uL (4.0-5.2)
[2023-03-13 21:43] LABS: ABG BASE EXCESS -3.3 mmol/L; ABG OXYGEN SATURATION 97.8 % (92.0-98.5); ABG PCO2 44.1 mmHg (35.0-45.0); ABG PH 7.327 (7.350-7.450); ABG PO2 108.6 mmHg (75.0-100.0); ABG TOTAL HEMOGLOBIN 10.5 G/dL (12.0-16.0); AaDO2 162.1 mmHg; COHb 0.3 % (0.5-1.5); MetHb 0.3 % (0.0-1.5); O2Hb 97.2 % (94.0-97.0); SITE, ABG Right Radial; VENT MODE, BG AC 28 400 45% +5
[2023-03-13 21:48] LABS: CALCIUM, SERUM 9.7 mg/dL (8.5-10.1); CARBON DIOXIDE 24 mmol/L (21-32); CHLORIDE 94 mmol/L (98-107); CREATININE 3.2 mg/dL (0.6-1.3); GLUCOSE 266 mg/dL (74-106); POTASSIUM 4.4 mmol/L (3.5-5.1); SODIUM SERUM 129 mmol/L (136-145); UREA NITROGEN, BLOOD 64 mg/dL (7-18)
[2023-03-13 21:54] LABS: ALANINE AMINOTRANSFERASE 42 U/L (12-78); ALKALINE PHOSPHATASE 115 U/L (46-116); ASPARTATE AMINOTRANSFERASE 87 U/L (15-37); BILIRUBIN,TOTAL 0.5 mg/dL (0.2-1.0); LIPASE 25 U/L (16-77); MAGNESIUM 2.3 mg/dL (1.8-2.4); PHOSPHORUS 5.1 mg/dL (2.5-4.9); TOTAL PROTEIN, SERUM 7.3 g/dL (6.4-8.2)
[2023-03-13 22:09] LABS: BAND % (MANUAL) 3 % (0.0-5.0); LYMPHOCYTES % (MANUAL) 4 % (16-48); MONOCYTES % (MANUAL) 6 % (0-11.0); NEUTROPHILS % (MANUAL) 87 (42-76); PLATELET ESTIMATE ADEQUATE
[2023-03-13 22:10] LABS: ANISOCYTOSIS 1+; ROULEAUX 1+
[2023-03-13] MEDS: MEROPENEM 1 G in IV NS 0.9% 100 ML IV SCH (22:20)
[2023-03-13] MEDS: INSULIN GLARGINE, 100 UNIT/ML CARTRIDGE SQ SCH (22:33)
[2023-03-14] VITALS (89 sets, daily range): BP systolic 85–145; BP diastolic 41–78; TEMP 98.6–100.3; O2SAT 100
[2023-03-14] MEDS: NEPRO 1,000 ML BOTTLE GT PRN ×2 (03:55→20:00)
[2023-03-14] MEDS: MIDODRINE HCL (5MG) 5 MG TABLET PO SCH ×3 (04:15→21:23)
[2023-03-14] MEDS: NOREPINEPHRINE 32 MG in IV NS 0.9% 218 ML IV PRN (04:32)
[2023-03-14 04:50] LABS: BASOPHILS % (AUTO) 0.1 % (0.0-2.0); EOSINOPHILS % (AUTO) 0.1 % (0.0-6.0); HEMATOCRIT 28 % (33-45); HEMOGLOBIN 8.7 g/dL (11.5-14.8); LYMPHOCYTES # (AUTO) 0.8 K/uL (0.8-4.8); LYMPHOCYTES % (AUTO) 2.3 % (20.0-44.0); MEAN CORPUSCULAR HEMOGLOBIN 29 PG (26.0-33.0); MEAN CORPUSCULAR HGB CONC 31 g/dl (31.0-36.0); MEAN CORPUSCULAR VOLUME 94 fL (82-100); MONOCYTES # (AUTO) 1.7 K/uL (0.1-1.30); MONOCYTES % (AUTO) 4.8 % (2.0-12.0); NEUTROPHILS # (AUTO) 32.2 K/uL (1.8-8.9); NEUTROPHILS % (AUTO) 92.7 % (43.0-81.0); PLATELET COUNT (AUTO) 341 K/uL (150-450); RED BLOOD CELL COUNT(AUTO) 3.01 MIL/uL (4.0-5.2); RED CELL DISTRIBUTION WIDTH 16.9 % (11.5-15.0)
[2023-03-14 04:52] LABS: WHITE BLOOD COUNT (AUTO) 34.7 K/uL (4.3-11.0)
[2023-03-14 05:01] LABS: CALCIUM, SERUM 9.4 mg/dL (8.5-10.1); CARBON DIOXIDE 21 mmol/L (21-32); CHLORIDE 95 mmol/L (98-107); CREATININE 3.3 mg/dL (0.6-1.3); GLUCOSE 324 mg/dL (74-106); MAGNESIUM 2.3 mg/dL (1.8-2.4); PHOSPHORUS 4.7 mg/dL (2.5-4.9); POTASSIUM 4.7 mmol/L (3.5-5.1); SODIUM SERUM 132 mmol/L (136-145); UREA NITROGEN, BLOOD 69 mg/dL (7-18)
[2023-03-14 05:46] LABS: ANISOCYTOSIS 1+; BAND % (MANUAL) 5 % (0.0-5.0); BASOPHILS % (MANUAL) 0 % (0.0-2.0); EOSINOPHILS % (MANUAL) 0 % (0-4); LYMPHOCYTES % (MANUAL) 3 % (16-48); MONOCYTES % (MANUAL) 5 % (0-11.0); NEUTROPHILS % (MANUAL) 87 (42-76); PLATELET ESTIMATE ADEQUATE; STOMATOCYTES 1+
[2023-03-14] MEDS: AMIODARONE HCL 200 MG TABLET GT SCH (08:47)
[2023-03-14] MEDS: ASCORBIC ACID 500 MG TABLET NG SCH (08:47)
[2023-03-14] MEDS: CHLORHEXIDINE GLUCONATE 15 ML UDC MM SCH ×2 (08:47→21:23)
[2023-03-14] MEDS: Z GUARD REMEDY 4 OZ OINT TP SCH (08:48)
[2023-03-14] MEDS: NEOMY SULF/BACITRAC ZN/POLY 15 GM TUBE TP SCH (08:48)
[2023-03-14] MEDS: CLOTRIMAZOLE 1% 15 GM TUBE TP SCH ×2 (08:48→21:24)
[2023-03-14] MEDS: LACTOBACILLUS RHAMNOSUS GG 1 EACH CAP.SPRINK PO SCH ×2 (08:48→21:23)
[2023-03-14] MEDS: HEPARIN SODIUM, PORCINE 5000 UNITS/1 ML VIAL SQ SCH ×2 (08:50→21:26)
[2023-03-14] MEDS: VANCOMYCIN 1 GM in IV D5W 250ml IV ONE ×2 (12:00→19:45)
[2023-03-14] MEDS ORDERED: SODIUM BICARBONATE SYR 50 MEQ/50 ML DISP.SYRIN IV ONE (12:25)
[2023-03-14] MEDS ORDERED: NOREPINEPHRINE 4 MG/4 ML AMPUL IV ONE (12:25)
[2023-03-14] MEDS ORDERED: ALTEPLASE CATHFLO 2 MG/VIAL XX ONE (14:30)
[2023-03-14] MEDS ORDERED: BLOOD SUGAR DIAGNOSTIC 1 EACH STRIP VI SCH (20:30)
[2023-03-14] MEDS: INSULIN GLARGINE, 100 UNIT/ML CARTRIDGE SQ SCH (21:26)
[2023-03-14] MEDS: MEROPENEM 1 G in IV NS 0.9% 100 ML IV SCH (21:26)
[2023-03-15] VITALS (46 sets, daily range): BP systolic 81–126; BP diastolic 46–79; TEMP 98.3–99.8; O2SAT 98–100
[2023-03-15] MEDS ORDERED: DEXTROSE 50%-WATER 50 ML DISP.SYRIN IV PRN
[2023-03-15] MEDS: INSULIN REGULAR, HUMAN 100 UNIT/ML 3 ML VIAL SQ PRN ×4 (00:26→17:23)
[2023-03-15] MEDS: BLOOD SUGAR DIAGNOSTIC 1 EACH STRIP VI SCH ×4 (00:26→17:23)
[2023-03-15] MEDS: MIDODRINE HCL (5MG) 5 MG TABLET PO SCH ×3 (04:25→21:05)
[2023-03-15 05:14] LABS: BASOPHILS % (AUTO) 0.3 % (0.0-2.0); EOSINOPHILS # (AUTO) 0.2 K/uL (0.0-0.7); EOSINOPHILS % (AUTO) 1.2 % (0.0-6.0); HEMATOCRIT 24 % (33-45); HEMOGLOBIN 7.6 g/dL (11.5-14.8); LYMPHOCYTES # (AUTO) 0.8 K/uL (0.8-4.8); LYMPHOCYTES % (AUTO) 5.1 % (20.0-44.0); MEAN CORPUSCULAR HEMOGLOBIN 29 PG (26.0-33.0); MEAN CORPUSCULAR HGB CONC 32 g/dl (31.0-36.0); MEAN CORPUSCULAR VOLUME 93 fL (82-100); MONOCYTES # (AUTO) 1.2 K/uL (0.1-1.30); MONOCYTES % (AUTO) 7.7 % (2.0-12.0); NEUTROPHILS # (AUTO) 13.6 K/uL (1.8-8.9); NEUTROPHILS % (AUTO) 85.7 % (43.0-81.0); PLATELET COUNT (AUTO) 208 K/uL (150-450); RED BLOOD CELL COUNT(AUTO) 2.57 MIL/uL (4.0-5.2); RED CELL DISTRIBUTION WIDTH 17.3 % (11.5-15.0); WHITE BLOOD COUNT (AUTO) 15.9 K/uL (4.3-11.0)
[2023-03-15 05:43] LABS: CALCIUM, SERUM 9.1 mg/dL (8.5-10.1); CARBON DIOXIDE 29 mmol/L (21-32); CHLORIDE 99 mmol/L (98-107); CREATININE 2.9 mg/dL (0.6-1.3); GLUCOSE 152 mg/dL (74-106); MAGNESIUM 2.1 mg/dL (1.8-2.4); PHOSPHORUS 3.1 mg/dL (2.5-4.9); POTASSIUM 4.1 mmol/L (3.5-5.1); SODIUM SERUM 136 mmol/L (136-145); UREA NITROGEN, BLOOD 47 mg/dL (7-18)
[2023-03-15] MEDS: NEPRO 1,000 ML BOTTLE GT PRN ×2 (07:38→23:20)
[2023-03-15] MEDS ORDERED: NOREPINEPHRINE 8 MG in IV D5W 250ML IV PRN (08:00)
[2023-03-15] MEDS: LACTOBACILLUS RHAMNOSUS GG 1 EACH CAP.SPRINK PO SCH ×2 (09:13→21:04)
[2023-03-15] MEDS: ASCORBIC ACID 500 MG TABLET NG SCH (09:13)
[2023-03-15] MEDS: CHLORHEXIDINE GLUCONATE 15 ML UDC MM SCH ×2 (09:13→21:04)
[2023-03-15] MEDS: NEOMY SULF/BACITRAC ZN/POLY 15 GM TUBE TP SCH (09:14)
[2023-03-15] MEDS: Z GUARD REMEDY 4 OZ OINT TP SCH (09:14)
[2023-03-15] MEDS: AMIODARONE HCL 200 MG TABLET GT SCH (09:14)
[2023-03-15] MEDS: CLOTRIMAZOLE 1% 15 GM TUBE TP SCH ×2 (09:14→21:06)
[2023-03-15] MEDS: HEPARIN SODIUM, PORCINE 5000 UNITS/1 ML VIAL SQ SCH ×2 (09:16→21:05)
[2023-03-15] MEDS: MEROPENEM 1 G in IV NS 0.9% 100 ML IV SCH (21:06)
[2023-03-15] MEDS: INSULIN GLARGINE, 100 UNIT/ML CARTRIDGE SQ SCH (21:45)
[2023-03-15] MEDS ORDERED: IPRATROPIUM NEB FS 0.5 MG/2.5 ML AMPUL.NEB NEB PRN (23:45)
[2023-03-16] VITALS (28 sets, daily range): BP systolic 89–134; BP diastolic 36–71; TEMP 98–98.3; O2SAT 98–100
[2023-03-16] MEDS ORDERED: IPRATROPIUM BROMIDE 14 GM INHALER (or 12.9 GM) IH PRN
[2023-03-16] MEDS ORDERED: ALBUTEROL FS 2.5 MG/0.5 ML VIAL.NEB NEB PRN
[2023-03-16] MEDS: BLOOD SUGAR DIAGNOSTIC 1 EACH STRIP VI SCH ×4 (00:54→18:13)
[2023-03-16 03:49] LABS: BASOPHILS % (AUTO) 0.1 % (0.0-2.0); EOSINOPHILS # (AUTO) 0.3 K/uL (0.0-0.7); HEMATOCRIT 25 % (33-45); HEMOGLOBIN 7.7 g/dL (11.5-14.8); LYMPHOCYTES % (AUTO) 6.9 % (20.0-44.0); MEAN CORPUSCULAR HEMOGLOBIN 29 PG (26.0-33.0); MEAN CORPUSCULAR HGB CONC 31 g/dl (31.0-36.0); MEAN CORPUSCULAR VOLUME 94 fL (82-100); MONOCYTES # (AUTO) 1.1 K/uL (0.1-1.30); MONOCYTES % (AUTO) 7.3 % (2.0-12.0); NEUTROPHILS # (AUTO) 12.2 K/uL (1.8-8.9); NEUTROPHILS % (AUTO) 83.7 % (43.0-81.0); PLATELET COUNT (AUTO) 195 K/uL (150-450); RED BLOOD CELL COUNT(AUTO) 2.63 MIL/uL (4.0-5.2); RED CELL DISTRIBUTION WIDTH 16.9 % (11.5-15.0); WHITE BLOOD COUNT (AUTO) 14.5 K/uL (4.3-11.0)
[2023-03-16 04:09] LABS: CALCIUM, SERUM 8.6 mg/dL (8.5-10.1); CARBON DIOXIDE 30 mmol/L (21-32); CHLORIDE 101 mmol/L (98-107); CREATININE 2.6 mg/dL (0.6-1.3); GLUCOSE 263 mg/dL (74-106); MAGNESIUM 2.1 mg/dL (1.8-2.4); PHOSPHORUS 3.2 mg/dL (2.5-4.9); POTASSIUM 4.1 mmol/L (3.5-5.1); SODIUM SERUM 137 mmol/L (136-145); UREA NITROGEN, BLOOD 43 mg/dL (7-18)
[2023-03-16] MEDS: MIDODRINE HCL (5MG) 5 MG TABLET PO SCH ×3 (05:02→21:00)
[2023-03-16] MEDS: INSULIN REGULAR, HUMAN 100 UNIT/ML 3 ML VIAL SQ PRN ×3 (05:16→19:02)
[2023-03-16 05:38] LABS: ABG BASE EXCESS 2.1 mmol/L; ABG OXYGEN SATURATION 98.7 % (92.0-98.5); ABG PCO2 39.9 mmHg (35.0-45.0); ABG PH 7.439 (7.350-7.450); ABG PO2 139.6 mmHg (75.0-100.0); AaDO2 99.7 mmHg; COHb 0.3 % (0.5-1.5); MetHb 0.2 % (0.0-1.5); O2Hb 98.2 % (94.0-97.0); SITE, ABG Right Radial
[2023-03-16] MEDS ORDERED: EPOETIN ALFA (10,000 UNIT) 10,000 UNIT/ML VIAL IV ONE (07:30)
[2023-03-16] MEDS: CHLORHEXIDINE GLUCONATE 15 ML UDC MM SCH ×2 (08:08→21:05)
[2023-03-16] MEDS: HEPARIN SODIUM, PORCINE 5000 UNITS/1 ML VIAL SQ SCH ×2 (08:08→21:02)
[2023-03-16] MEDS: AMIODARONE HCL 200 MG TABLET GT SCH (08:09)
[2023-03-16] MEDS: Z GUARD REMEDY 4 OZ OINT TP SCH (08:09)
[2023-03-16] MEDS: ASCORBIC ACID 500 MG TABLET NG SCH (08:09)
[2023-03-16] MEDS: CLOTRIMAZOLE 1% 15 GM TUBE TP SCH ×2 (08:09→21:07)
[2023-03-16] MEDS: LACTOBACILLUS RHAMNOSUS GG 1 EACH CAP.SPRINK PO SCH ×2 (08:09→21:01)
[2023-03-16] MEDS: NEOMY SULF/BACITRAC ZN/POLY 15 GM TUBE TP SCH (09:00)
[2023-03-16] MEDS: VANCOMYCIN 500 MG in IV D5W 100 ML IV PRN (15:51)
[2023-03-16] MEDS: MEROPENEM 1 G in IV NS 0.9% 100 ML IV SCH (21:03)
[2023-03-16] MEDS: INSULIN GLARGINE, 100 UNIT/ML CARTRIDGE SQ SCH (22:56)
[2023-03-17] VITALS (21 sets, daily range): BP systolic 101–148; BP diastolic 47–115; TEMP 97.7–98.5; O2SAT 99–100
[2023-03-17] MEDS: BLOOD SUGAR DIAGNOSTIC 1 EACH STRIP VI SCH ×5 (00:24→23:09)
[2023-03-17] MEDS: INSULIN REGULAR, HUMAN 100 UNIT/ML 3 ML VIAL SQ PRN ×4 (00:29→23:10)
[2023-03-17] MEDS: NEPRO 1,000 ML BOTTLE GT PRN (04:02)
[2023-03-17 05:09] LABS: HEPATITIS B SURFACE AB Non Reactive (.)
[2023-03-17] MEDS: MIDODRINE HCL (5MG) 5 MG TABLET PO SCH ×3 (05:40→21:00)
[2023-03-17 07:02] LABS: BASOPHILS % (AUTO) 0.2 % (0.0-2.0); EOSINOPHILS # (AUTO) 0.5 K/uL (0.0-0.7); EOSINOPHILS % (AUTO) 2.6 % (0.0-6.0); HEMATOCRIT 26 % (33-45); LYMPHOCYTES # (AUTO) 0.9 K/uL (0.8-4.8); LYMPHOCYTES % (AUTO) 5.1 % (20.0-44.0); MEAN CORPUSCULAR HEMOGLOBIN 30 PG (26.0-33.0); MEAN CORPUSCULAR HGB CONC 31 g/dl (31.0-36.0); MEAN CORPUSCULAR VOLUME 96 fL (82-100); MONOCYTES # (AUTO) 1.3 K/uL (0.1-1.30); MONOCYTES % (AUTO) 7.4 % (2.0-12.0); NEUTROPHILS # (AUTO) 14.9 K/uL (1.8-8.9); NEUTROPHILS % (AUTO) 84.7 % (43.0-81.0); PLATELET COUNT (AUTO) 204 K/uL (150-450); RED BLOOD CELL COUNT(AUTO) 2.69 MIL/uL (4.0-5.2); RED CELL DISTRIBUTION WIDTH 17.3 % (11.5-15.0); WHITE BLOOD COUNT (AUTO) 17.6 K/uL (4.3-11.0)
[2023-03-17 07:11] LABS: CALCIUM, SERUM 8.7 mg/dL (8.5-10.1); CARBON DIOXIDE 27 mmol/L (21-32); CHLORIDE 100 mmol/L (98-107); CREATININE 2.6 mg/dL (0.6-1.3); GLUCOSE 192 mg/dL (74-106); PHOSPHORUS 4.5 mg/dL (2.5-4.9); POTASSIUM 4.3 mmol/L (3.5-5.1); SODIUM SERUM 134 mmol/L (136-145); UREA NITROGEN, BLOOD 45 mg/dL (7-18)
[2023-03-17] MEDS: CHLORHEXIDINE GLUCONATE 15 ML UDC MM SCH ×2 (08:44→21:40)
[2023-03-17] MEDS: LACTOBACILLUS RHAMNOSUS GG 1 EACH CAP.SPRINK PO SCH ×2 (08:45→21:41)
[2023-03-17] MEDS: ASCORBIC ACID 500 MG TABLET NG SCH (08:45)
[2023-03-17] MEDS: HEPARIN SODIUM, PORCINE 5000 UNITS/1 ML VIAL SQ SCH ×2 (08:45→21:43)
[2023-03-17] MEDS: AMIODARONE HCL 200 MG TABLET GT SCH (08:47)
[2023-03-17] MEDS ORDERED: EPOETIN ALFA (10,000 UNIT) 10,000 UNIT/ML VIAL IV ONE (09:00)
[2023-03-17] MEDS: Z GUARD REMEDY 4 OZ OINT TP SCH (09:06)
[2023-03-17] MEDS: CLOTRIMAZOLE 1% 15 GM TUBE TP SCH ×2 (09:06→21:43)
[2023-03-17] MEDS: NEOMY SULF/BACITRAC ZN/POLY 15 GM TUBE TP SCH (09:07)
[2023-03-17] MEDS: ALBUMIN 25% 25 GM in PREMIX 1 EA IV PRN (16:10)
[2023-03-17] MEDS: MEROPENEM 1 G in IV NS 0.9% 100 ML IV SCH (21:44)
[2023-03-17] MEDS: INSULIN GLARGINE, 100 UNIT/ML CARTRIDGE SQ SCH (22:57)
[2023-03-18] VITALS: BP 115/81; TEMP 99; O2SAT 100
[2023-03-18 04:00] VITALS: BP 118/85; TEMP 99.5; O2SAT 100
[2023-03-18] MEDS: BLOOD SUGAR DIAGNOSTIC 1 EACH STRIP VI SCH ×4 (05:23→23:02)
[2023-03-18] MEDS: INSULIN REGULAR, HUMAN 100 UNIT/ML 3 ML VIAL SQ PRN ×3 (05:24→23:03)
[2023-03-18] MEDS: MIDODRINE HCL (5MG) 5 MG TABLET PO SCH ×3 (05:31→21:00)
[2023-03-18] MEDS: NEPRO 1,000 ML BOTTLE GT PRN (06:27)
[2023-03-18 07:21] LABS: CALCIUM, SERUM 8.8 mg/dL (8.5-10.1); CARBON DIOXIDE 26 mmol/L (21-32); CHLORIDE 104 mmol/L (98-107); CREATININE 2.3 mg/dL (0.6-1.3); GLUCOSE 216 mg/dL (74-106); POTASSIUM 4.1 mmol/L (3.5-5.1); SODIUM SERUM 139 mmol/L (136-145); UREA NITROGEN, BLOOD 40 mg/dL (7-18)
[2023-03-18 08:00] VITALS: BP 124/79; TEMP 98.4; O2SAT 100
[2023-03-18 08:49] LABS: BASOPHILS # (AUTO) 0.1 K/uL (0.0-0.2); BASOPHILS % (AUTO) 0.5 % (0.0-2.0); EOSINOPHILS # (AUTO) 0.5 K/uL (0.0-0.7); EOSINOPHILS % (AUTO) 3.5 % (0.0-6.0); HEMATOCRIT 26 % (33-45); HEMOGLOBIN 7.8 g/dL (11.5-14.8); LYMPHOCYTES # (AUTO) 1.1 K/uL (0.8-4.8); LYMPHOCYTES % (AUTO) 8.2 % (20.0-44.0); MEAN CORPUSCULAR HEMOGLOBIN 30 PG (26.0-33.0); MEAN CORPUSCULAR HGB CONC 30 g/dl (31.0-36.0); MEAN CORPUSCULAR VOLUME 97 fL (82-100); NEUTROPHILS # (AUTO) 10.4 K/uL (1.8-8.9); NEUTROPHILS % (AUTO) 79.8 % (43.0-81.0); PLATELET COUNT (AUTO) 164 K/uL (150-450); RED BLOOD CELL COUNT(AUTO) 2.64 MIL/uL (4.0-5.2); RED CELL DISTRIBUTION WIDTH 18.1 % (11.5-15.0); WHITE BLOOD COUNT (AUTO) 13.1 K/uL (4.3-11.0)
[2023-03-18] MEDS: ASCORBIC ACID 500 MG TABLET NG SCH (09:29)
[2023-03-18] MEDS: CHLORHEXIDINE GLUCONATE 15 ML UDC MM SCH ×2 (09:29→21:39)
[2023-03-18] MEDS: CLOTRIMAZOLE 1% 15 GM TUBE TP SCH ×2 (09:30→21:41)
[2023-03-18] MEDS: LACTOBACILLUS RHAMNOSUS GG 1 EACH CAP.SPRINK PO SCH ×2 (09:30→21:39)
[2023-03-18] MEDS: AMIODARONE HCL 200 MG TABLET GT SCH (09:30)
[2023-03-18] MEDS: NEOMY SULF/BACITRAC ZN/POLY 15 GM TUBE TP SCH (09:31)
[2023-03-18] MEDS: Z GUARD REMEDY 4 OZ OINT TP SCH (09:31)
[2023-03-18] MEDS: HEPARIN SODIUM, PORCINE 5000 UNITS/1 ML VIAL SQ SCH (09:47)
[2023-03-18 12:00] VITALS: BP 124/82; TEMP 98.4; O2SAT 100
[2023-03-18 16:00] VITALS: BP 126/52; TEMP 98.2; O2SAT 100
[2023-03-18] MEDS: ALBUMIN 25% 25 GM in PREMIX 1 EA IV PRN (17:50)
[2023-03-18 20:00] VITALS: BP 122/63; TEMP 97.2; O2SAT 96
[2023-03-18] MEDS: VANCOMYCIN 500 MG in IV D5W 100 ML IV PRN (20:04)
[2023-03-18] MEDS: MEROPENEM 1 G in IV NS 0.9% 100 ML IV SCH (21:39)
[2023-03-18] MEDS: INSULIN GLARGINE, 100 UNIT/ML CARTRIDGE SQ SCH (22:55)
[2023-03-19] VITALS: BP 120/65; TEMP 97.7; O2SAT 96
[2023-03-19] MEDS: NEPRO 1,000 ML BOTTLE GT PRN (02:29)
[2023-03-19 04:00] VITALS: BP 130/60; TEMP 97.6; O2SAT 98
[2023-03-19] MEDS: MIDODRINE HCL (5MG) 5 MG TABLET PO SCH ×3 (04:50→20:19)
[2023-03-19] MEDS: BLOOD SUGAR DIAGNOSTIC 1 EACH STRIP VI SCH ×3 (05:34→17:09)
[2023-03-19] MEDS: INSULIN REGULAR, HUMAN 100 UNIT/ML 3 ML VIAL SQ PRN ×3 (05:35→17:11)
[2023-03-19 06:50] LABS: BASOPHILS % (AUTO) 0.4 % (0.0-2.0); EOSINOPHILS # (AUTO) 0.5 K/uL (0.0-0.7); EOSINOPHILS % (AUTO) 3.9 % (0.0-6.0); HEMATOCRIT 28 % (33-45); HEMOGLOBIN 8.3 g/dL (11.5-14.8); LYMPHOCYTES # (AUTO) 0.9 K/uL (0.8-4.8); LYMPHOCYTES % (AUTO) 7.2 % (20.0-44.0); MEAN CORPUSCULAR HEMOGLOBIN 29 PG (26.0-33.0); MEAN CORPUSCULAR HGB CONC 30 g/dl (31.0-36.0); MEAN CORPUSCULAR VOLUME 97 fL (82-100); MONOCYTES # (AUTO) 0.9 K/uL (0.1-1.30); MONOCYTES % (AUTO) 6.7 % (2.0-12.0); NEUTROPHILS # (AUTO) 10.5 K/uL (1.8-8.9); NEUTROPHILS % (AUTO) 81.8 % (43.0-81.0); PLATELET COUNT (AUTO) 164 K/uL (150-450); RED BLOOD CELL COUNT(AUTO) 2.86 MIL/uL (4.0-5.2); RED CELL DISTRIBUTION WIDTH 18.3 % (11.5-15.0); WHITE BLOOD COUNT (AUTO) 12.8 K/uL (4.3-11.0)
[2023-03-19 07:07] LABS: CALCIUM, SERUM 8.7 mg/dL (8.5-10.1); CARBON DIOXIDE 25 mmol/L (21-32); CHLORIDE 102 mmol/L (98-107); CREATININE 2.2 mg/dL (0.6-1.3); GLUCOSE 174 mg/dL (74-106); POTASSIUM 4.1 mmol/L (3.5-5.1); SODIUM SERUM 135 mmol/L (136-145); UREA NITROGEN, BLOOD 43 mg/dL (7-18)
[2023-03-19 08:00] VITALS: BP 111/47; TEMP 97.9; O2SAT 98
[2023-03-19] MEDS: ASCORBIC ACID 500 MG TABLET NG SCH (09:09)
[2023-03-19] MEDS: CLOTRIMAZOLE 1% 15 GM TUBE TP SCH ×2 (09:09→20:20)
[2023-03-19] MEDS: CHLORHEXIDINE GLUCONATE 15 ML UDC MM SCH ×2 (09:09→20:19)
[2023-03-19] MEDS: Z GUARD REMEDY 4 OZ OINT TP SCH (09:09)
[2023-03-19] MEDS: LACTOBACILLUS RHAMNOSUS GG 1 EACH CAP.SPRINK PO SCH ×2 (09:09→20:19)
[2023-03-19] MEDS: AMIODARONE HCL 200 MG TABLET GT SCH (09:10)
[2023-03-19] MEDS: NEOMY SULF/BACITRAC ZN/POLY 15 GM TUBE TP SCH (09:10)
[2023-03-19] MEDS ORDERED: EPOETIN ALFA (10,000 UNIT) 10,000 UNIT/ML VIAL IV ONE (11:30)
[2023-03-19 12:00] VITALS: BP 118/54; TEMP 97.9; O2SAT 100
[2023-03-19 16:00] VITALS: BP 128/53; TEMP 98.1; O2SAT 100
[2023-03-19 20:00] VITALS: BP 101/64; TEMP 97.8; O2SAT 100
[2023-03-19] MEDS: MEROPENEM 1 G in IV NS 0.9% 100 ML IV SCH (21:46)
[2023-03-19] MEDS: INSULIN GLARGINE, 100 UNIT/ML CARTRIDGE SQ SCH (21:54)
[2023-03-20] VITALS: BP 111/73; TEMP 97.8; O2SAT 100
[2023-03-20] MEDS: BLOOD SUGAR DIAGNOSTIC 1 EACH STRIP VI SCH ×4 (00:08→17:55)
[2023-03-20] MEDS: INSULIN REGULAR, HUMAN 100 UNIT/ML 3 ML VIAL SQ PRN ×2 (00:10→05:14)
[2023-03-20 04:00] VITALS: BP 116/52; TEMP 98.2; O2SAT 99
[2023-03-20] MEDS: MIDODRINE HCL (5MG) 5 MG TABLET PO SCH ×3 (04:46→20:55)
[2023-03-20] MEDS ORDERED: FENTANYL PF 250MCG/5ML AMPUL ONE (07:12)
[2023-03-20] MEDS ORDERED: ROCURONIUM BROMIDE 50 MG/5 ML ONE (07:12)
[2023-03-20 07:35] LABS: BASOPHILS # (AUTO) 0.1 K/uL (0.0-0.2); BASOPHILS % (AUTO) 0.4 % (0.0-2.0); EOSINOPHILS # (AUTO) 0.5 K/uL (0.0-0.7); EOSINOPHILS % (AUTO) 3.7 % (0.0-6.0); HEMATOCRIT 29 % (33-45); HEMOGLOBIN 8.7 g/dL (11.5-14.8); LYMPHOCYTES # (AUTO) 0.9 K/uL (0.8-4.8); LYMPHOCYTES % (AUTO) 6.5 % (20.0-44.0); MEAN CORPUSCULAR HEMOGLOBIN 29 PG (26.0-33.0); MEAN CORPUSCULAR HGB CONC 31 g/dl (31.0-36.0); MEAN CORPUSCULAR VOLUME 96 fL (82-100); MONOCYTES % (AUTO) 6.7 % (2.0-12.0); NEUTROPHILS % (AUTO) 82.7 % (43.0-81.0); PLATELET COUNT (AUTO) 183 K/uL (150-450); RED BLOOD CELL COUNT(AUTO) 2.99 MIL/uL (4.0-5.2); RED CELL DISTRIBUTION WIDTH 18.1 % (11.5-15.0); WHITE BLOOD COUNT (AUTO) 14.5 K/uL (4.3-11.0)
[2023-03-20 07:45] LABS: CALCIUM, SERUM 8.8 mg/dL (8.5-10.1); CARBON DIOXIDE 24 mmol/L (21-32); CHLORIDE 100 mmol/L (98-107); CREATININE 2.1 mg/dL (0.6-1.3); GLUCOSE 159 mg/dL (74-106); POTASSIUM 4.2 mmol/L (3.5-5.1); SODIUM SERUM 134 mmol/L (136-145); UREA NITROGEN, BLOOD 38 mg/dL (7-18)
[2023-03-20 08:00] VITALS: BP 114/51; TEMP 98; O2SAT 98
[2023-03-20] MEDS: CHLORHEXIDINE GLUCONATE 15 ML UDC MM SCH ×2 (09:29→20:54)
[2023-03-20] MEDS: LACTOBACILLUS RHAMNOSUS GG 1 EACH CAP.SPRINK PO SCH ×2 (09:29→20:55)
[2023-03-20] MEDS: ASCORBIC ACID 500 MG TABLET NG SCH (09:29)
[2023-03-20] MEDS: AMIODARONE HCL 200 MG TABLET GT SCH (09:30)
[2023-03-20] MEDS: CLOTRIMAZOLE 1% 15 GM TUBE TP SCH ×2 (09:31→21:01)
[2023-03-20] MEDS: NEOMY SULF/BACITRAC ZN/POLY 15 GM TUBE TP SCH (09:31)
[2023-03-20] MEDS: Z GUARD REMEDY 4 OZ OINT TP SCH (09:31)
[2023-03-20] MEDS ORDERED: VANC500P5 IV (10:34)
[2023-03-20] MEDS ORDERED: MERO1VIA23 IV (10:34)
[2023-03-20 12:00] VITALS: BP 113/50; TEMP 97.9; O2SAT 100
[2023-03-20] MEDS: ALBUMIN 25% 25 GM in PREMIX 1 EA IV PRN (14:32)
[2023-03-20 16:00] VITALS: BP 87/63; TEMP 98.5; O2SAT 100
[2023-03-20] MEDS: VANCOMYCIN 500 MG in IV D5W 100 ML IV PRN (16:47)
[2023-03-20 20:00] VITALS: BP 104/41; TEMP 99.4; O2SAT 100
[2023-03-20] MEDS ORDERED: GENTAMICIN 120 MG in IV D5W 100 ML IV ONE (21:00)
[2023-03-20] MEDS: INSULIN GLARGINE, 100 UNIT/ML CARTRIDGE SQ SCH (21:50)
[2023-03-20] MEDS ORDERED: GENTAMICIN 80 MG/2 ML VIAL ONE (22:20)
[2023-03-21] VITALS: BP 107/56; TEMP 98.2; O2SAT 100
[2023-03-21] MEDS: BLOOD SUGAR DIAGNOSTIC 1 EACH STRIP VI SCH ×4 (00:04→18:14)
[2023-03-21] MEDS: INSULIN REGULAR, HUMAN 100 UNIT/ML 3 ML VIAL SQ PRN ×2 (00:05→05:39)
[2023-03-21 04:00] VITALS: BP 116/58; TEMP 97.7; O2SAT 100
[2023-03-21] MEDS: MIDODRINE HCL (5MG) 5 MG TABLET PO SCH ×3 (05:00→21:00)
[2023-03-21] MEDS ORDERED: GENTAMICIN 80 MG in IV D5W 50 ML IV PRN (06:00)
[2023-03-21 07:05] LABS: BASOPHILS # (AUTO) 0.1 K/uL (0.0-0.2); BASOPHILS % (AUTO) 0.4 % (0.0-2.0); EOSINOPHILS # (AUTO) 0.5 K/uL (0.0-0.7); EOSINOPHILS % (AUTO) 4.2 % (0.0-6.0); HEMATOCRIT 27 % (33-45); HEMOGLOBIN 8.2 g/dL (11.5-14.8); LYMPHOCYTES # (AUTO) 0.9 K/uL (0.8-4.8); LYMPHOCYTES % (AUTO) 7.1 % (20.0-44.0); MEAN CORPUSCULAR HEMOGLOBIN 29 PG (26.0-33.0); MEAN CORPUSCULAR HGB CONC 31 g/dl (31.0-36.0); MEAN CORPUSCULAR VOLUME 96 fL (82-100); MONOCYTES # (AUTO) 0.8 K/uL (0.1-1.30); MONOCYTES % (AUTO) 6.8 % (2.0-12.0); NEUTROPHILS # (AUTO) 9.9 K/uL (1.8-8.9); NEUTROPHILS % (AUTO) 81.5 % (43.0-81.0); PLATELET COUNT (AUTO) 191 K/uL (150-450); RED BLOOD CELL COUNT(AUTO) 2.77 MIL/uL (4.0-5.2); RED CELL DISTRIBUTION WIDTH 18.4 % (11.5-15.0); WHITE BLOOD COUNT (AUTO) 12.2 K/uL (4.3-11.0)
[2023-03-21 07:06] LABS: INR 1.13 (0.91-1.10); PROTHROMBIN TIME 11.9 SECS (9.2-11.1)
[2023-03-21 08:00] VITALS: BP 129/65; TEMP 97.7; O2SAT 100
[2023-03-21 08:42] LABS: CALCIUM, SERUM 8.5 mg/dL (8.5-10.1); CARBON DIOXIDE 21 mmol/L (21-32); CHLORIDE 101 mmol/L (98-107); GLUCOSE 171 mg/dL (74-106); POTASSIUM 4.4 mmol/L (3.5-5.1); SODIUM SERUM 135 mmol/L (136-145); UREA NITROGEN, BLOOD 37 mg/dL (7-18)
[2023-03-21] MEDS: LACTOBACILLUS RHAMNOSUS GG 1 EACH CAP.SPRINK PO SCH ×2 (09:00→21:34)
[2023-03-21] MEDS: ASCORBIC ACID 500 MG TABLET NG SCH (09:00)
[2023-03-21] MEDS: AMIODARONE HCL 200 MG TABLET GT SCH (09:00)
[2023-03-21] MEDS: CLOTRIMAZOLE 1% 15 GM TUBE TP SCH ×2 (09:03→21:36)
[2023-03-21] MEDS: NEOMY SULF/BACITRAC ZN/POLY 15 GM TUBE TP SCH (09:03)
[2023-03-21] MEDS: Z GUARD REMEDY 4 OZ OINT TP SCH (09:03)
[2023-03-21] MEDS ORDERED: IOHEXOL 240MG/ML 50 ML IV ONE (09:29)
[2023-03-21] MEDS: CHLORHEXIDINE GLUCONATE 15 ML UDC MM SCH ×2 (09:29→21:34)
[2023-03-21] MEDS ORDERED: HEPARIN SODIUM, PORCINE 1,000 UNIT/ML VIAL ONE (09:29)
[2023-03-21] MEDS ORDERED: LIDOCAINE 1% INJ 50 ML MDV IJ ONE (09:30)
[2023-03-21 12:00] VITALS: BP 127/53; TEMP 97.2; O2SAT 100
[2023-03-21 16:00] VITALS: BP 111/45; TEMP 97.2; O2SAT 100
[2023-03-21 20:00] VITALS: BP 124/66; TEMP 98.8; O2SAT 100
[2023-03-21] MEDS: ALBUMIN 25% 25 GM in PREMIX 1 EA IV PRN (20:18)
[2023-03-21] MEDS: INSULIN GLARGINE, 100 UNIT/ML CARTRIDGE SQ SCH (22:07)
[2023-03-22] VITALS: BP 130/89; TEMP 97.8; O2SAT 100
[2023-03-22] MEDS: BLOOD SUGAR DIAGNOSTIC 1 EACH STRIP VI SCH ×4 (00:17→18:35)
[2023-03-22] MEDS: INSULIN REGULAR, HUMAN 100 UNIT/ML 3 ML VIAL SQ PRN ×4 (00:22→22:46)
[2023-03-22 04:00] VITALS: BP 122/68; TEMP 98.2; O2SAT 97
[2023-03-22] MEDS: MIDODRINE HCL (5MG) 5 MG TABLET PO SCH ×3 (05:46→21:06)
[2023-03-22 06:59] LABS: CARBON DIOXIDE 29 mmol/L (21-32); CHLORIDE 101 mmol/L (98-107); GLUCOSE 178 mg/dL (74-106); POTASSIUM 3.8 mmol/L (3.5-5.1); SODIUM SERUM 137 mmol/L (136-145); UREA NITROGEN, BLOOD 34 mg/dL (7-18)
[2023-03-22 08:00] VITALS: BP 135/94; TEMP 97; O2SAT 92
[2023-03-22] MEDS: NEPRO 1,000 ML BOTTLE GT PRN (09:10)
[2023-03-22] MEDS: ANCEF 1 GM/50 ML D5W IV SCH ×2 (09:41)
[2023-03-22] MEDS: ASCORBIC ACID 500 MG TABLET NG SCH (09:43)
[2023-03-22] MEDS: AMIODARONE HCL 200 MG TABLET GT SCH (09:43)
[2023-03-22] MEDS: LACTOBACILLUS RHAMNOSUS GG 1 EACH CAP.SPRINK PO SCH ×2 (09:44→21:06)
[2023-03-22] MEDS: NEOMY SULF/BACITRAC ZN/POLY 15 GM TUBE TP SCH (09:44)
[2023-03-22] MEDS: CLOTRIMAZOLE 1% 15 GM TUBE TP SCH ×2 (09:44→21:06)
[2023-03-22] MEDS: Z GUARD REMEDY 4 OZ OINT TP SCH (09:45)
[2023-03-22] MEDS: CHLORHEXIDINE GLUCONATE 15 ML UDC MM SCH ×2 (09:50→21:06)
[2023-03-22] MEDS ORDERED: GENTAMICIN 80 MG in IV D5W 50 ML IV ONE (10:00)
[2023-03-22 12:00] VITALS: BP 106/47; TEMP 97.4; O2SAT 99
[2023-03-22 16:00] VITALS: BP 94/49; TEMP 97.2; O2SAT 99
[2023-03-22 20:00] VITALS: BP 118/41; TEMP 97.9; O2SAT 100
[2023-03-22] MEDS: INSULIN GLARGINE, 100 UNIT/ML CARTRIDGE SQ SCH (22:46)
[2023-03-23] VITALS: BP 125/45; TEMP 98; O2SAT 100
[2023-03-23] MEDS: BLOOD SUGAR DIAGNOSTIC 1 EACH STRIP VI SCH ×4 (00:08→17:41)
[2023-03-23 04:00] VITALS: BP 103/42; TEMP 97.7; O2SAT 100
[2023-03-23] MEDS: MIDODRINE HCL (5MG) 5 MG TABLET PO SCH ×4 (05:21→17:41)
[2023-03-23] MEDS: INSULIN REGULAR, HUMAN 100 UNIT/ML 3 ML VIAL SQ PRN ×2 (05:45→12:00)
[2023-03-23 07:53] LABS: CALCIUM, SERUM 9.4 mg/dL (8.5-10.1); CARBON DIOXIDE 24 mmol/L (21-32); CHLORIDE 99 mmol/L (98-107); CREATININE 2.6 mg/dL (0.6-1.3); GLUCOSE 170 mg/dL (74-106); SODIUM SERUM 135 mmol/L (136-145); UREA NITROGEN, BLOOD 54 mg/dL (7-18)
[2023-03-23 08:00] VITALS: BP 106/27; TEMP 97.6; O2SAT 100
[2023-03-23 08:01] LABS: GENTAMICIN,TROUGH 3.6 ug/ml (0.2-2.0)
[2023-03-23] MEDS: ANCEF 1 GM/50 ML D5W IV SCH ×2 (09:48)
[2023-03-23] MEDS: CHLORHEXIDINE GLUCONATE 15 ML UDC MM SCH (09:48)
[2023-03-23] MEDS: LACTOBACILLUS RHAMNOSUS GG 1 EACH CAP.SPRINK PO SCH (09:48)
[2023-03-23] MEDS: ASCORBIC ACID 500 MG TABLET NG SCH (09:48)
[2023-03-23] MEDS: NEOMY SULF/BACITRAC ZN/POLY 15 GM TUBE TP SCH (09:49)
[2023-03-23] MEDS: Z GUARD REMEDY 4 OZ OINT TP SCH (09:50)
[2023-03-23] MEDS: CLOTRIMAZOLE 1% 15 GM TUBE TP SCH (09:51)
[2023-03-23] MEDS: AMIODARONE HCL 200 MG TABLET GT SCH (10:26)
[2023-03-23 12:00] VITALS: BP 115/42; TEMP 98.6; O2SAT 100
[2023-03-23] MEDS: ALBUMIN 25% 25 GM in PREMIX 1 EA IV PRN (14:23)
[2023-03-23 16:00] VITALS: BP 101/52; TEMP 97.6; O2SAT 100
[2023-03-23 17:41] VITALS: BP 101/52
[2023-03-25] MEDS ORDERED: MERO1VIA23 IV (09:19)
[2023-03-25] MEDS ORDERED: VANC500V IV (09:19)
== END 2023-03-23 19:35 | DRG 870 ==
LOC: ER 09:50 → TELE 16:56 → ICU 03-13 16:02 → TELE1 03-17 18:06
PROVIDERS: ADMIT Nurse Practitioner Acute Care; ATTEND Internal Medicine
PROC: 5A1955Z Respiratory Ventilation, Greater than 96 Consecutive Hours (ICD-10-PCS; principal; 2023-03-11)
PROC: 0HBRXZZ Excision of Toe Nail, External Approach (ICD-10-PCS; 2023-03-12)
PROC: 02HV33Z Insertion of Infusion Device into Superior Vena Cava, Percutaneous Approach (ICD-10-PCS; 2023-03-13)
PROC: B548ZZA Ultrasonography of Superior Vena Cava, Guidance (ICD-10-PCS; 2023-03-13)
PROC: 5A12012 Performance of Cardiac Output, Single, Manual (ICD-10-PCS; 2023-03-13)
PROC: 06HY33Z Insertion of Infusion Device into Lower Vein, Percutaneous Approach (ICD-10-PCS; 2023-03-13)
PROC: 5A1D70Z Performance of Urinary Filtration, Intermittent, Less than 6 Hours Per Day (ICD-10-PCS; 2023-03-13)
PROC: 0JH63XZ Insertion of Tunneled Vascular Access Device into Chest Subcutaneous Tissue and Fascia, Percutaneous Approach (ICD-10-PCS; 2023-03-21)
PROC: 02HV33Z Insertion of Infusion Device into Superior Vena Cava, Percutaneous Approach (ICD-10-PCS; 2023-03-21)
PROC: B518YZA Fluoroscopy of Superior Vena Cava using Other Contrast, Guidance (ICD-10-PCS; 2023-03-21)
DX: A41.9 Sepsis, unspecified organism (principal); J15.69 Pneumonia due to other Gram-negative bacteria; E43 Unspecified severe protein-calorie malnutrition; N18.6 End stage renal disease; I46.9 Cardiac arrest, cause unspecified; G93.41 Metabolic encephalopathy; R65.21 Severe sepsis with septic shock; I12.0 Hypertensive chronic kidney disease with stage 5 chronic kidney disease or end stage renal disease; J96.10 Chronic respiratory failure, unspecified whether with hypoxia or hypercapnia; Z99.11 Dependence on respirator [ventilator] status; D68.69 Other thrombophilia; E87.1 Hypo-osmolality and hyponatremia; J90 Pleural effusion, not elsewhere classified; E87.29 Other acidosis; Z68.41 Body mass index [BMI] 40.0-44.9, adult; I44.2 Atrioventricular block, complete; Z99.2 Dependence on renal dialysis; E66.01 Morbid (severe) obesity due to excess calories; E78.5 Hyperlipidemia, unspecified; E11.22 Type 2 diabetes mellitus with diabetic chronic kidney disease; D64.9 Anemia, unspecified; E88.09 Other disorders of plasma-protein metabolism, not elsewhere classified; F41.9 Anxiety disorder, unspecified; G47.33 Obstructive sleep apnea (adult) (pediatric); Z74.01 Bed confinement status; Z88.0 Allergy status to penicillin; Z86.73 Personal history of transient ischemic attack (TIA), and cerebral infarction without residual deficits; R13.10 Dysphagia, unspecified; Z79.4 Long term (current) use of insulin; Z87.01 Personal history of pneumonia (recurrent); Z85.038 Personal history of other malignant neoplasm of large intestine; I48.91 Unspecified atrial fibrillation; Z93.1 Gastrostomy status; Z93.0 Tracheostomy status; F32.A Depression, unspecified; F29 Unspecified psychosis not due to a substance or known physiological condition; S91.204A Unspecified open wound of right lesser toe(s) with damage to nail, initial encounter; X58.XXXA Exposure to other specified factors, initial encounter; Y93.9 Activity, unspecified; Y92.129 Unspecified place in nursing home as the place of occurrence of the external cause; M24.571 Contracture, right ankle; L30.4 Erythema intertrigo; M24.572 Contracture, left ankle; T17.990A Other foreign object in respiratory tract, part unspecified in causing asphyxiation, initial encounter; E87.6 Hypokalemia; I95.9 Hypotension, unspecified
CPT/HCPCS: 31720; 36415; 36600; 71045-TC; 80048-TC; 80053-TC; 80170-TC; 80202-TC; 82803-TC; 82962-TC; 83605-TC; 83690-TC; 83735-TC; 84100-TC; 85025-TC; 85610-TC; 86706; 86850-TC; 87040-TC; 87081-TC; 87340; 90935-TC; 94002-TC; 94003-TC; 94640-TC; 94760-TC; 94799-TC; A4216; A4223; A6403; A7526; C1750; C1769; G0378; J0171; J0690; J0885; J1580; J1644; J1815; J2185; J2997; J3010; J3370; J3480; J3490; J7030; J7050; J7060; P9047; Q9966

== ENCOUNTER 2023-03-30 08:54 | Inpatient (IN) | payer MEDICARE, OTHER ==
[~2023-03-30] VITALS: Ht 170.2 cm; Wt 106.6 kg
[~2023-03-30 08:54] MED LIST changes: +*INS REG3 SQ; +ARGI1POW13 GT; +ASCO-495 GT; -DIPH25TA62 GT; +HEPA50008 SQ; -INSU100V11 SQ; +MERO1VIA23 IV; -NAPH1POW3 GT; -OMEP40CA21 GT; -PEG15DRO8 EACHEYE; +PETR113O TP; -POLY17PO4 GT; -POVI3780 TP; -TRIAD TP; +VANC500V IV
[2023-03-30 09:34] LABS: EOSINOPHILS # (AUTO) 0.6 K/uL (0.0-0.7); WHITE BLOOD COUNT (AUTO) 9.5 K/uL (4.3-11.0)
[2023-03-30 09:42] LABS: BASOPHILS % (AUTO) 0.2 % (0.0-2.0); EOSINOPHILS % (AUTO) 6.3 % (0.0-6.0); HEMATOCRIT 21 % (33-45); LYMPHOCYTES # (AUTO) 0.7 K/uL (0.8-4.8); MEAN CORPUSCULAR HEMOGLOBIN 30 PG (26.0-33.0); MEAN CORPUSCULAR HGB CONC 31 g/dl (31.0-36.0); MEAN CORPUSCULAR VOLUME 96 fL (82-100); MONOCYTES # (AUTO) 0.7 K/uL (0.1-1.30); MONOCYTES % (AUTO) 7.2 % (2.0-12.0); NEUTROPHILS # (AUTO) 7.5 K/uL (1.8-8.9); NEUTROPHILS % (AUTO) 79.3 % (43.0-81.0); PLATELET COUNT (AUTO) 130 K/uL (150-450); RED BLOOD CELL COUNT(AUTO) 2.23 MIL/uL (4.0-5.2); RED CELL DISTRIBUTION WIDTH 17.4 % (11.5-15.0)
[2023-03-30 09:45] LABS: HEMOGLOBIN 6.6 g/dL (11.5-14.8)
[2023-03-30] MEDS ORDERED: NUT.237L85 GT (09:45)
[2023-03-30] MEDS ORDERED: POVI3780 TP (09:45)
[2023-03-30] MEDS ORDERED: ALLA266C2 TP (09:45)
[2023-03-30] MEDS ORDERED: MERO500V23 IV (09:45)
[2023-03-30] MEDS ORDERED: LACT1CAP7 GT (09:45)
[2023-03-30] MEDS ORDERED: NORM210S TP (09:45)
[2023-03-30] MEDS ORDERED: HONE44PA TP (09:45)
[2023-03-30] MEDS ORDERED: TRIAD TP (09:45)
[2023-03-30 09:47] LABS: INR 1.07 (0.91-1.10); PARTIAL THROMBOPLASTIN TIME 35.1 SEC (24.3-34.3); PROTHROMBIN TIME 11.3 SECS (9.2-11.1)
[2023-03-30 09:59] LABS: ALANINE AMINOTRANSFERASE 7 U/L (12-78); ALBUMIN 2.2 g/dL (3.4-5.0); ALKALINE PHOSPHATASE 182 U/L (46-116); ASPARTATE AMINOTRANSFERASE 16 U/L (15-37); BILIRUBIN,DIRECT 0.1 mg/dL (0.0-0.2); BILIRUBIN,TOTAL 0.3 mg/dL (0.2-1.0); CALCIUM, SERUM 8.7 mg/dL (8.5-10.1); CARBON DIOXIDE 28 mmol/L (21-32); CHLORIDE 101 mmol/L (98-107); CREATININE 1.9 mg/dL (0.6-1.3); GLUCOSE 104 mg/dL (74-106); POTASSIUM 3.1 mmol/L (3.5-5.1); SODIUM SERUM 136 mmol/L (136-145); TOTAL PROTEIN, SERUM 6.3 g/dL (6.4-8.2); UREA NITROGEN, BLOOD 41 mg/dL (7-18)
[2023-03-30 10:21] LABS: LACTIC ACID 0.6 mmol/L (0.4-2.0)
[2023-03-30] MEDS ORDERED: DEXTROSE 50%-WATER 50 ML DISP.SYRIN IV PRN (11:30)
[2023-03-30] MEDS ORDERED: ACETAMINOPHEN ES 500 MG TABLET GT PRN (11:30)
[2023-03-30] MEDS ORDERED: ACETAMINOPHEN 325 MG TABLET MC PRN (11:30)
[2023-03-30] MEDS ORDERED: ONDANSETRON HCL/PF 4 MG/2 ML VIAL IVP PRN (11:30)
[2023-03-30] MEDS ORDERED: PANTOPRAZOLE 40 MG VIAL ONE (11:36)
[2023-03-30] MEDS: PANTOPRAZOLE 40 MG VIAL IV SCH (11:46)
[2023-03-30] MEDS ORDERED: IPRATROPIUM NEB FS 0.5 MG/2.5 ML AMPUL.NEB NEB PRN (12:00)
[2023-03-30] MEDS ORDERED: ALBUTEROL FS 2.5 MG/3 ML VIAL.NEB NEB PRN (12:00)
[2023-03-30] MEDS: BLOOD SUGAR DIAGNOSTIC 1 EACH STRIP IN SCH (12:25)
[2023-03-30] MEDS: INSULIN REGULAR, HUMAN 100 UNIT/ML 3 ML VIAL SQ PRN (12:44)
[2023-03-30 12:51] LABS: BAND % (MANUAL) 8 % (0.0-5.0); EOSINOPHILS % (MANUAL) 8 % (0-4); LYMPHOCYTES % (MANUAL) 7 % (16-48); MONOCYTES % (MANUAL) 9 % (0-11.0); NEUTROPHILS % (MANUAL) 68 (42-76)
[2023-03-30 12:52] LABS: ANISOCYTOSIS 1+; PLATELET ESTIMATE SLIGHTLY DECREASED
[2023-03-30 12:53] LABS: HYPOCHROMASIA 1+
[2023-03-30] MEDS ORDERED: GENTAMICIN 140 MG in IV D5W 100 ML IV PRN (13:00)
[2023-03-30] MEDS ORDERED: MIDODRINE HCL (5MG) 5 MG TABLET PO SCH (13:00)
[2023-03-30] MEDS ORDERED: MIDODRINE HCL 2.5 MG TABLET PO SCH (13:00)
[2023-03-30] MEDS ORDERED: GENTAMICIN 140 MG in IV D5W 100 ML IV ONE (13:00)
[2023-03-30] MEDS ORDERED: GENTAMICIN 80 MG in IV D5W 50 ML IV PRN (13:00)
[2023-03-30] MEDS ORDERED: ACETAMINOPHEN 650 MG/20.3 ML UDC GT PRN (13:30)
[2023-03-30] MEDS: Z GUARD REMEDY 4 OZ OINT TP SCH ×2 (13:33→14:40)
[2023-03-30] MEDS: THERAHONEY GEL 1.5 OZ TUBE TP SCH (14:40)
[2023-03-30] MEDS: GENTAMICIN 140 MG in IV D5W 100 ML IV ONE (14:49)
[2023-03-30 16:00] VITALS: BP 88/43; TEMP 97.5; O2SAT 100
[2023-03-30] MEDS: ARGININE/GLUTAMINE/CALCIUM BMB 1 EACH POWD.PACK GT SCH (17:00)
[2023-03-30] MEDS: PROSOURCE / PROSTAT (PYXIS) 30 ML UDC GT SCH (17:13)
[2023-03-30] MEDS: busPIRone 5 MG TABLET GT SCH (17:13)
[2023-03-30 20:00] VITALS: BP 93/40; TEMP 97.9; O2SAT 100
[2023-03-30] MEDS: HEPARIN SODIUM, PORCINE 5000 UNITS/1 ML VIAL SQ SCH (21:00)
[2023-03-30] MEDS: CHLORHEXIDINE GLUCONATE 15 ML UDC MM SCH (21:38)
[2023-03-30] MEDS: MIDODRINE HCL (5MG) 5 MG TABLET GT SCH (21:40)
[2023-03-30] MEDS: clonazePAM 0.5 MG TABLET GT SCH (21:41)
[2023-03-30 22:00] VITALS: BP 92/46; TEMP 97.6; O2SAT 100
[2023-03-30] MEDS: INSULIN GLARGINE, 100 UNIT/ML CARTRIDGE SQ SCH (22:00)
[2023-03-30] MEDS: NEPRO 1,000 ML BOTTLE GT PRN (22:16)
[2023-03-30 23:25] VITALS: BP 91/45; TEMP 97.5
[2023-03-30 23:40] VITALS: BP 92/48; TEMP 97.5
[2023-03-30 23:50] VITALS: BP 91/45; TEMP 97.5
[2023-03-31] VITALS (9 sets, daily range): BP systolic 90–104; BP diastolic 34–50; TEMP 97.5–98.4; O2SAT 100
[2023-03-31 06:50] LABS: BASOPHILS % (AUTO) 0.4 % (0.0-2.0); EOSINOPHILS # (AUTO) 0.4 K/uL (0.0-0.7); EOSINOPHILS % (AUTO) 6.6 % (0.0-6.0); HEMATOCRIT 24 % (33-45); HEMOGLOBIN 7.6 g/dL (11.5-14.8); LYMPHOCYTES # (AUTO) 0.8 K/uL (0.8-4.8); LYMPHOCYTES % (AUTO) 11.3 % (20.0-44.0); MEAN CORPUSCULAR HEMOGLOBIN 30 PG (26.0-33.0); MEAN CORPUSCULAR HGB CONC 32 g/dl (31.0-36.0); MEAN CORPUSCULAR VOLUME 95 fL (82-100); MONOCYTES # (AUTO) 0.5 K/uL (0.1-1.30); MONOCYTES % (AUTO) 7.8 % (2.0-12.0); NEUTROPHILS % (AUTO) 73.9 % (43.0-81.0); PLATELET COUNT (AUTO) 108 K/uL (150-450); RED BLOOD CELL COUNT(AUTO) 2.53 MIL/uL (4.0-5.2); RED CELL DISTRIBUTION WIDTH 17.4 % (11.5-15.0); WHITE BLOOD COUNT (AUTO) 6.7 K/uL (4.3-11.0)
[2023-03-31 07:03] LABS: CALCIUM, SERUM 8.8 mg/dL (8.5-10.1); CARBON DIOXIDE 21 mmol/L (21-32); CHLORIDE 99 mmol/L (98-107); CREATININE 2.3 mg/dL (0.6-1.3); GLUCOSE 162 mg/dL (74-106); MAGNESIUM 2.3 mg/dL (1.8-2.4); PHOSPHORUS 2.6 mg/dL (2.5-4.9); POTASSIUM 3.7 mmol/L (3.5-5.1); SODIUM SERUM 133 mmol/L (136-145); UREA NITROGEN, BLOOD 52 mg/dL (7-18)
[2023-03-31] MEDS: ASCORBIC ACID 500 MG TABLET GT SCH (08:56)
[2023-03-31] MEDS: AMIODARONE HCL 200 MG TABLET GT SCH (08:58)
[2023-03-31] MEDS: Z GUARD REMEDY 4 OZ OINT TP PRN (09:26)
[2023-03-31] MEDS: ACIDOPHILUS/BULGARICUS 1 EACH GRAN.PACK GT SCH (09:27)
[2023-03-31 10:57] LABS: ANISOCYTOSIS 1+; BAND % (MANUAL) 6 % (0.0-5.0); BASOPHILS % (MANUAL) 0 % (0.0-2.0); EOSINOPHILS % (MANUAL) 6 % (0-4); LYMPHOCYTES % (MANUAL) 10 % (16-48); MONOCYTES % (MANUAL) 8 % (0-11.0); NEUTROPHILS % (MANUAL) 70 (42-76); PLATELET ESTIMATE DECREASED; STOMATOCYTES 1+
[2023-03-31] MEDS: GENTAMICIN 80 MG in IV D5W 50 ML IV PRN (12:23)
[2023-03-31] MEDS: ALTEPLASE CATHFLO 2 MG/VIAL XX ONE ×2 (13:34→13:35)
[2023-03-31] MEDS ORDERED: NEPRO 1,000 ML BOTTLE GT PRN (18:26)
[2023-04-01] VITALS: BP 100/50; TEMP 98.6; O2SAT 100
[2023-04-01 04:00] VITALS: BP 100/50; TEMP 98.6; O2SAT 100
[2023-04-01 07:01] LABS: BASOPHILS % (AUTO) 0.6 % (0.0-2.0); EOSINOPHILS # (AUTO) 0.5 K/uL (0.0-0.7); EOSINOPHILS % (AUTO) 7.2 % (0.0-6.0); HEMATOCRIT 25 % (33-45); HEMOGLOBIN 7.8 g/dL (11.5-14.8); LYMPHOCYTES % (AUTO) 14.5 % (20.0-44.0); MEAN CORPUSCULAR HEMOGLOBIN 30 PG (26.0-33.0); MEAN CORPUSCULAR HGB CONC 31 g/dl (31.0-36.0); MEAN CORPUSCULAR VOLUME 95 fL (82-100); MONOCYTES # (AUTO) 0.8 K/uL (0.1-1.30); MONOCYTES % (AUTO) 10.8 % (2.0-12.0); NEUTROPHILS # (AUTO) 4.8 K/uL (1.8-8.9); NEUTROPHILS % (AUTO) 66.9 % (43.0-81.0); PLATELET COUNT (AUTO) 102 K/uL (150-450); RED BLOOD CELL COUNT(AUTO) 2.64 MIL/uL (4.0-5.2); WHITE BLOOD COUNT (AUTO) 7.1 K/uL (4.3-11.0)
[2023-04-01 07:27] LABS: CARBON DIOXIDE 23 mmol/L (21-32); CHLORIDE 100 mmol/L (98-107); CREATININE 2.5 mg/dL (0.6-1.3); GLUCOSE 155 mg/dL (74-106); POTASSIUM 3.7 mmol/L (3.5-5.1); SODIUM SERUM 133 mmol/L (136-145); UREA NITROGEN, BLOOD 63 mg/dL (7-18)
[2023-04-01 08:00] VITALS: BP 86/41; TEMP 98.4; O2SAT 100
[2023-04-01 08:17] LABS: BAND % (MANUAL) 5 % (0.0-5.0); EOSINOPHILS % (MANUAL) 6 % (0-4); LYMPHOCYTES % (MANUAL) 21 % (16-48); METAMYELOCYTES % 1 % (0-0); MONOCYTES % (MANUAL) 6 % (0-11.0); NEUTROPHILS % (MANUAL) 61 (42-76)
[2023-04-01 08:18] LABS: ANISOCYTOSIS 1+; HYPOCHROMASIA 1+; PLATELET ESTIMATE SLIGHTLY DECREASED
[2023-04-01] MEDS: ACIDOPHILUS/BULGARICUS 1 EACH TAB.CHEW GT SCH (08:47)
[2023-04-01 12:00] VITALS: BP 90/29; TEMP 98.1; O2SAT 100
[2023-04-01 16:00] VITALS: BP 97/42; TEMP 97.5; O2SAT 100
[2023-04-01 20:00] VITALS: BP 96/58; TEMP 97.5; O2SAT 100
[2023-04-02] VITALS: BP 97/56; TEMP 97.8; O2SAT 100
[2023-04-02 04:00] VITALS: BP 108/58; TEMP 98; O2SAT 100
[2023-04-02 06:45] LABS: BASOPHILS % (AUTO) 0.3 % (0.0-2.0); EOSINOPHILS # (AUTO) 0.6 K/uL (0.0-0.7); EOSINOPHILS % (AUTO) 8.4 % (0.0-6.0); HEMATOCRIT 24 % (33-45); HEMOGLOBIN 7.5 g/dL (11.5-14.8); LYMPHOCYTES # (AUTO) 1.2 K/uL (0.8-4.8); LYMPHOCYTES % (AUTO) 16.4 % (20.0-44.0); MEAN CORPUSCULAR HEMOGLOBIN 30 PG (26.0-33.0); MEAN CORPUSCULAR HGB CONC 32 g/dl (31.0-36.0); MEAN CORPUSCULAR VOLUME 95 fL (82-100); MONOCYTES # (AUTO) 0.7 K/uL (0.1-1.30); MONOCYTES % (AUTO) 9.7 % (2.0-12.0); NEUTROPHILS # (AUTO) 4.9 K/uL (1.8-8.9); NEUTROPHILS % (AUTO) 65.2 % (43.0-81.0); PLATELET COUNT (AUTO) 101 K/uL (150-450); RED CELL DISTRIBUTION WIDTH 17.8 % (11.5-15.0); WHITE BLOOD COUNT (AUTO) 7.6 K/uL (4.3-11.0)
[2023-04-02 08:00] VITALS: BP 112/52; TEMP 98.1; O2SAT 100
[2023-04-02] MEDS: ALBUMIN 25% 25 GM in PREMIX 1 EA IV PRN (09:12)
[2023-04-02] MEDS: ALTEPLASE CATHFLO 2 MG/VIAL XX ONE (10:07)
[2023-04-02 12:00] VITALS: BP 109/51; TEMP 98.3; O2SAT 100
[2023-04-02 12:34] LABS: ANISOCYTOSIS 1+; BAND % (MANUAL) 3 % (0.0-5.0); BASOPHILS % (MANUAL) 0 % (0.0-2.0); EOSINOPHILS % (MANUAL) 5 % (0-4); HYPOCHROMASIA 1+; LYMPHOCYTES % (MANUAL) 14 % (16-48); MONOCYTES % (MANUAL) 10 % (0-11.0); NEUTROPHILS % (MANUAL) 68 (42-76); PLATELET ESTIMATE DECREASED
[2023-04-02] MEDS: EPOETIN ALFA (10,000 UNIT) 10,000 UNIT/ML VIAL IV ONE (13:06)
[2023-04-02] MEDS: HYDROCORTISONE SOD SUCCINATE 100 MG/2 ML VIAL IV SCH (14:45)
[2023-04-02 16:00] VITALS: BP 123/60; TEMP 98.1; O2SAT 100
[2023-04-02] MEDS: NEPRO 1,000 ML BOTTLE GT PRN (16:53)
[2023-04-02 20:00] VITALS: BP 133/65; TEMP 98.5; O2SAT 100
[2023-04-03] VITALS: BP 137/71; TEMP 97.8; O2SAT 100
[2023-04-03 04:00] VITALS: BP 125/73; TEMP 98.2; O2SAT 100
[2023-04-03 06:33] LABS: BASOPHILS % (AUTO) 0.1 % (0.0-2.0); EOSINOPHILS % (AUTO) 0.3 % (0.0-6.0); HEMATOCRIT 25 % (33-45); HEMOGLOBIN 7.9 g/dL (11.5-14.8); LYMPHOCYTES # (AUTO) 0.7 K/uL (0.8-4.8); LYMPHOCYTES % (AUTO) 7.8 % (20.0-44.0); MEAN CORPUSCULAR HEMOGLOBIN 30 PG (26.0-33.0); MEAN CORPUSCULAR HGB CONC 32 g/dl (31.0-36.0); MEAN CORPUSCULAR VOLUME 94 fL (82-100); MONOCYTES # (AUTO) 0.3 K/uL (0.1-1.30); MONOCYTES % (AUTO) 3.4 % (2.0-12.0); NEUTROPHILS # (AUTO) 8.3 K/uL (1.8-8.9); NEUTROPHILS % (AUTO) 88.4 % (43.0-81.0); PLATELET COUNT (AUTO) 91 K/uL (150-450); RED BLOOD CELL COUNT(AUTO) 2.65 MIL/uL (4.0-5.2); RED CELL DISTRIBUTION WIDTH 17.5 % (11.5-15.0); WHITE BLOOD COUNT (AUTO) 9.3 K/uL (4.3-11.0)
[2023-04-03 06:34] LABS: CALCIUM, SERUM 9.9 mg/dL (8.5-10.1); CARBON DIOXIDE 25 mmol/L (21-32); CHLORIDE 100 mmol/L (98-107); CREATININE 3.1 mg/dL (0.6-1.3); GLUCOSE 277 mg/dL (74-106); POTASSIUM 4.6 mmol/L (3.5-5.1); SODIUM SERUM 133 mmol/L (136-145); UREA NITROGEN, BLOOD 102 mg/dL (7-18)
[2023-04-03 08:00] VITALS: BP 114/65; O2SAT 100
[2023-04-03 11:48] LABS: ANISOCYTOSIS 1+; BAND % (MANUAL) 5 % (0.0-5.0); BASOPHILS % (MANUAL) 0 % (0.0-2.0); EOSINOPHILS % (MANUAL) 0 % (0-4); HYPOCHROMASIA 1+; LYMPHOCYTES % (MANUAL) 8 % (16-48); MONOCYTES % (MANUAL) 5 % (0-11.0); NEUTROPHILS % (MANUAL) 82 (42-76); OVALOCYTES 1+; PLATELET ESTIMATE DECREASED
[2023-04-03 12:00] VITALS: BP 121/66; O2SAT 100
[2023-04-03 16:00] VITALS: BP 133/61; TEMP 97.1; O2SAT 100
[2023-04-03 20:00] VITALS: BP 119/52; TEMP 98; O2SAT 100
[2023-04-04] VITALS: BP 132/67; TEMP 97.6; O2SAT 99
[2023-04-04 04:00] VITALS: BP 117/47; TEMP 97.9; O2SAT 99
[2023-04-04 07:09] LABS: EOSINOPHILS % (AUTO) 0.2 % (0.0-6.0); HEMATOCRIT 22 % (33-45); HEMOGLOBIN 7.2 g/dL (11.5-14.8); LYMPHOCYTES # (AUTO) 0.5 K/uL (0.8-4.8); LYMPHOCYTES % (AUTO) 4.5 % (20.0-44.0); MEAN CORPUSCULAR HEMOGLOBIN 31 PG (26.0-33.0); MEAN CORPUSCULAR HGB CONC 32 g/dl (31.0-36.0); MEAN CORPUSCULAR VOLUME 94 fL (82-100); MONOCYTES # (AUTO) 0.4 K/uL (0.1-1.30); MONOCYTES % (AUTO) 3.4 % (2.0-12.0); NEUTROPHILS # (AUTO) 9.5 K/uL (1.8-8.9); NEUTROPHILS % (AUTO) 91.9 % (43.0-81.0); PLATELET COUNT (AUTO) 98 K/uL (150-450); RED BLOOD CELL COUNT(AUTO) 2.35 MIL/uL (4.0-5.2); RED CELL DISTRIBUTION WIDTH 18.2 % (11.5-15.0); WHITE BLOOD COUNT (AUTO) 10.3 K/uL (4.3-11.0)
[2023-04-04 07:30] LABS: CALCIUM, SERUM 9.5 mg/dL (8.5-10.1); CARBON DIOXIDE 24 mmol/L (21-32); CHLORIDE 99 mmol/L (98-107); CREATININE 3.2 mg/dL (0.6-1.3); GLUCOSE 204 mg/dL (74-106); POTASSIUM 4.5 mmol/L (3.5-5.1); SODIUM SERUM 133 mmol/L (136-145)
[2023-04-04 07:32] LABS: UREA NITROGEN, BLOOD 117 mg/dL (7-18)
[2023-04-04 08:00] VITALS: BP 124/50; TEMP 97.5; O2SAT 100
[2023-04-04 11:30] LABS: ANISOCYTOSIS 1+; BAND % (MANUAL) 6 % (0.0-5.0); BASOPHILS % (MANUAL) 0 % (0.0-2.0); EOSINOPHILS % (MANUAL) 0 % (0-4); HYPOCHROMASIA 1+; LYMPHOCYTES % (MANUAL) 12 % (16-48); MONOCYTES % (MANUAL) 3 % (0-11.0); NEUTROPHILS % (MANUAL) 79 (42-76); PLATELET ESTIMATE DECREASED; STOMATOCYTES 1+
[2023-04-04 12:00] VITALS: BP 110/55; TEMP 97.3; O2SAT 100
[2023-04-04 16:00] VITALS: BP 134/69; TEMP 98.5; O2SAT 100
[2023-04-04 20:00] VITALS: BP 121/51; TEMP 98.2; O2SAT 95
[2023-04-05] VITALS: BP 110/63; TEMP 98; O2SAT 96
[2023-04-05 04:00] VITALS: BP 98/72; TEMP 98.1; O2SAT 98
[2023-04-05 07:25] LABS: EOSINOPHILS % (AUTO) 0.3 % (0.0-6.0); HEMATOCRIT 24 % (33-45); HEMOGLOBIN 7.3 g/dL (11.5-14.8); LYMPHOCYTES # (AUTO) 0.8 K/uL (0.8-4.8); LYMPHOCYTES % (AUTO) 9.6 % (20.0-44.0); MEAN CORPUSCULAR HEMOGLOBIN 29 PG (26.0-33.0); MEAN CORPUSCULAR HGB CONC 31 g/dl (31.0-36.0); MEAN CORPUSCULAR VOLUME 94 fL (82-100); MONOCYTES # (AUTO) 0.4 K/uL (0.1-1.30); MONOCYTES % (AUTO) 4.3 % (2.0-12.0); NEUTROPHILS # (AUTO) 7.2 K/uL (1.8-8.9); NEUTROPHILS % (AUTO) 85.8 % (43.0-81.0); PLATELET COUNT (AUTO) 85 K/uL (150-450); RED BLOOD CELL COUNT(AUTO) 2.49 MIL/uL (4.0-5.2); RED CELL DISTRIBUTION WIDTH 18.5 % (11.5-15.0); WHITE BLOOD COUNT (AUTO) 8.4 K/uL (4.3-11.0)
[2023-04-05 07:45] LABS: CALCIUM, SERUM 9.3 mg/dL (8.5-10.1); CARBON DIOXIDE 26 mmol/L (21-32); CHLORIDE 96 mmol/L (98-107); CREATININE 2.5 mg/dL (0.6-1.3); GLUCOSE 227 mg/dL (74-106); POTASSIUM 3.8 mmol/L (3.5-5.1); SODIUM SERUM 133 mmol/L (136-145)
[2023-04-05 07:57] LABS: UREA NITROGEN, BLOOD 99 mg/dL (7-18)
[2023-04-05 08:00] VITALS: BP 119/59; TEMP 98.4; O2SAT 100
[2023-04-05 11:39] LABS: ANISOCYTOSIS 1+; BAND % (MANUAL) 5 % (0.0-5.0); BASOPHILS % (MANUAL) 0 % (0.0-2.0); EOSINOPHILS % (MANUAL) 4 % (0-4); HYPOCHROMASIA 1+; LYMPHOCYTES % (MANUAL) 10 % (16-48); NEUTROPHILS % (MANUAL) 81 (42-76); OVALOCYTES 1+; PLATELET ESTIMATE DECREASED; STOMATOCYTES 1+
[2023-04-05 12:00] VITALS: BP 121/51; TEMP 97.9; O2SAT 100
[2023-04-05 16:00] VITALS: BP 119/58; TEMP 97.7; O2SAT 100
[2023-04-05 20:00] VITALS: BP 117/71; TEMP 97.5; O2SAT 98
[2023-04-06] VITALS: BP 105/50; TEMP 96.9; O2SAT 100
[2023-04-06 04:00] VITALS: BP 110/59; TEMP 96.9; O2SAT 100
[2023-04-06 07:13] LABS: BASOPHILS % (AUTO) 0.1 % (0.0-2.0); EOSINOPHILS % (AUTO) 0.1 % (0.0-6.0); HEMATOCRIT 24 % (33-45); HEMOGLOBIN 7.6 g/dL (11.5-14.8); LYMPHOCYTES # (AUTO) 0.4 K/uL (0.8-4.8); LYMPHOCYTES % (AUTO) 5.2 % (20.0-44.0); MEAN CORPUSCULAR HEMOGLOBIN 29 PG (26.0-33.0); MEAN CORPUSCULAR HGB CONC 31 g/dl (31.0-36.0); MEAN CORPUSCULAR VOLUME 94 fL (82-100); MONOCYTES # (AUTO) 0.4 K/uL (0.1-1.30); MONOCYTES % (AUTO) 5.2 % (2.0-12.0); NEUTROPHILS # (AUTO) 7.6 K/uL (1.8-8.9); NEUTROPHILS % (AUTO) 89.4 % (43.0-81.0); PLATELET COUNT (AUTO) 82 K/uL (150-450); RED CELL DISTRIBUTION WIDTH 17.8 % (11.5-15.0); WHITE BLOOD COUNT (AUTO) 8.5 K/uL (4.3-11.0)
[2023-04-06 07:39] LABS: CALCIUM, SERUM 8.9 mg/dL (8.5-10.1); CHLORIDE 94 mmol/L (98-107); GLUCOSE 224 mg/dL (74-106); POTASSIUM 3.9 mmol/L (3.5-5.1); SODIUM SERUM 130 mmol/L (136-145)
[2023-04-06 08:00] VITALS: BP 88/40; TEMP 98.4; O2SAT 100
[2023-04-06 08:00] LABS: CARBON DIOXIDE 25 mmol/L (21-32)
[2023-04-06 08:01] LABS: UREA NITROGEN, BLOOD 136 mg/dL (7-18)
[2023-04-06 11:02] LABS: ANISOCYTOSIS 1+; BAND % (MANUAL) 4 % (0.0-5.0); BASOPHILS % (MANUAL) 0 % (0.0-2.0); EOSINOPHILS % (MANUAL) 0 % (0-4); HYPOCHROMASIA 1+; LYMPHOCYTES % (MANUAL) 7 % (16-48); MONOCYTES % (MANUAL) 5 % (0-11.0); NEUTROPHILS % (MANUAL) 84 (42-76); PLATELET ESTIMATE DECREASED
[2023-04-06 12:00] VITALS: BP 98/40; TEMP 98.4; O2SAT 100
[2023-04-06 16:00] VITALS: BP 91/43; TEMP 98.4; O2SAT 100
[2023-04-06 16:17] VITALS: BP 91/43
[2023-04-06] MEDS: MIDODRINE HCL (5MG) 5 MG TABLET PO PRN (16:17)
== END 2023-04-06 20:00 | DRG 640 ==
LOC: ER 09:11 → TELE1 11:42
PROVIDERS: ADMIT Nurse Practitioner Acute Care; ATTEND Internal Medicine
PROC: 5A1955Z Respiratory Ventilation, Greater than 96 Consecutive Hours (ICD-10-PCS; 2023-03-30)
PROC: 30233N1 Transfusion of Nonautologous Red Blood Cells into Peripheral Vein, Percutaneous Approach (ICD-10-PCS; 2023-03-30)
PROC: 5A1D70Z Performance of Urinary Filtration, Intermittent, Less than 6 Hours Per Day (ICD-10-PCS; principal; 2023-03-31)
DX: E86.1 Hypovolemia (principal); G93.41 Metabolic encephalopathy; J96.20 Acute and chronic respiratory failure, unspecified whether with hypoxia or hypercapnia; N18.6 End stage renal disease; D68.59 Other primary thrombophilia; I13.11 Hypertensive heart and chronic kidney disease without heart failure, with stage 5 chronic kidney disease, or end stage renal disease; E44.0 Moderate protein-calorie malnutrition; N17.9 Acute kidney failure, unspecified; Z99.11 Dependence on respirator [ventilator] status; E27.40 Unspecified adrenocortical insufficiency; I48.20 Chronic atrial fibrillation, unspecified; J90 Pleural effusion, not elsewhere classified; Z16.13 Resistance to carbapenem; I95.3 Hypotension of hemodialysis; E78.5 Hyperlipidemia, unspecified; Z93.1 Gastrostomy status; Z93.0 Tracheostomy status; R13.10 Dysphagia, unspecified; Z99.2 Dependence on renal dialysis; Z88.0 Allergy status to penicillin; Z88.5 Allergy status to narcotic agent; Z88.8 Allergy status to other drugs, medicaments and biological substances; Z79.51 Long term (current) use of inhaled steroids; Z79.4 Long term (current) use of insulin; Z79.01 Long term (current) use of anticoagulants; Z79.899 Other long term (current) drug therapy; F41.9 Anxiety disorder, unspecified; F32.A Depression, unspecified; F29 Unspecified psychosis not due to a substance or known physiological condition; D63.1 Anemia in chronic kidney disease; E88.09 Other disorders of plasma-protein metabolism, not elsewhere classified; E11.22 Type 2 diabetes mellitus with diabetic chronic kidney disease; I25.10 Atherosclerotic heart disease of native coronary artery without angina pectoris; Z85.038 Personal history of other malignant neoplasm of large intestine; Z86.74 Personal history of sudden cardiac arrest; Z74.01 Bed confinement status; Z74.09 Other reduced mobility; L89.156 Pressure-induced deep tissue damage of sacral region; M24.572 Contracture, left ankle; M24.571 Contracture, right ankle; L89.100 Pressure ulcer of unspecified part of back, unstageable; Z68.39 Body mass index [BMI] 39.0-39.9, adult; E66.9 Obesity, unspecified; I70.0 Atherosclerosis of aorta; G31.84 Mild cognitive impairment of uncertain or unknown etiology; S91.104A Unspecified open wound of right lesser toe(s) without damage to nail, initial encounter; X58.XXXA Exposure to other specified factors, initial encounter; Y92.9 Unspecified place or not applicable; G90.9 Disorder of the autonomic nervous system, unspecified
CPT/HCPCS: 31720; 36415; 71045-TC; 80048-TC; 80076-TC; 80170-TC; 82533; 82962-TC; 83605-TC; 83735-TC; 84100-TC; 84484-TC; 85025-TC; 85730-TC; 86850-TC; 87040-TC; 90935-TC; 94002-TC; 94003-TC; 94760-TC; 94762-TC; 94799-TC; A4216; A4223; A4623; A6403; C9113; G0378; J0885; J1580; J1644; J1720; J1815; J2997; J7030; J7040; J7050; J7060; P9016; P9047

== ENCOUNTER 2023-04-23 11:41 | Inpatient (IN) | payer MEDICARE, OTHER ==
[~2023-04-23] VITALS: Ht 167.6 cm; Wt 99.8 kg
[~2023-04-23 11:41] MED LIST changes: +ALLA266C2 TP; +HONE44PA TP; +LACT1CAP7 GT; -LACT1TAB13 GT; -MERO1VIA23 IV; +NORM210S TP; +POVI3780 TP; +TRIAD TP; -VANC500V IV
[2023-04-23] MEDS ORDERED: PANTOPRAZOLE 40 MG VIAL ONE (12:11)
[2023-04-23] MEDS: PANTOPRAZOLE 40 MG VIAL IV ONE (12:15)
[2023-04-23 12:34] LABS: EOSINOPHILS # (AUTO) 0.6 K/uL (0.0-0.7); MEAN CORPUSCULAR HGB CONC 31 g/dl (31.0-36.0); RED CELL DISTRIBUTION WIDTH 17.8 % (11.5-15.0); WHITE BLOOD COUNT (AUTO) 5.9 K/uL (4.3-11.0)
[2023-04-23 12:38] LABS: BASOPHILS % (AUTO) 0.7 % (0.0-2.0); EOSINOPHILS % (AUTO) 10.1 % (0.0-6.0); HEMATOCRIT 21 % (33-45); LYMPHOCYTES % (AUTO) 17.3 % (20.0-44.0); MEAN CORPUSCULAR HEMOGLOBIN 29 PG (26.0-33.0); MEAN CORPUSCULAR VOLUME 93 fL (82-100); MONOCYTES # (AUTO) 0.5 K/uL (0.1-1.30); MONOCYTES % (AUTO) 9.3 % (2.0-12.0); NEUTROPHILS # (AUTO) 3.7 K/uL (1.8-8.9); NEUTROPHILS % (AUTO) 62.6 % (43.0-81.0); PLATELET COUNT (AUTO) 200 K/uL (150-450); RED BLOOD CELL COUNT(AUTO) 2.23 MIL/uL (4.0-5.2)
[2023-04-23 12:50] LABS: ALANINE AMINOTRANSFERASE 11 U/L (12-78); ALKALINE PHOSPHATASE 153 U/L (46-116); ASPARTATE AMINOTRANSFERASE 12 U/L (15-37); BILIRUBIN,DIRECT 0.1 mg/dL (0.0-0.2); BILIRUBIN,TOTAL 0.3 mg/dL (0.2-1.0); CARBON DIOXIDE 27 mmol/L (21-32); CHLORIDE 102 mmol/L (98-107); GLUCOSE 229 mg/dL (74-106); HEMOGLOBIN 6.4 g/dL (11.5-14.8); LIPASE 28 U/L (16-77); POTASSIUM 3.3 mmol/L (3.5-5.1); SODIUM SERUM 137 mmol/L (136-145); TOTAL PROTEIN, SERUM 6.8 g/dL (6.4-8.2); UREA NITROGEN, BLOOD 30 mg/dL (7-18)
[2023-04-23] MEDS ORDERED: OMEP40CA21 GT (12:52)
[2023-04-23] MEDS ORDERED: POLY17PO4 GT (12:52)
[2023-04-23] MEDS ORDERED: ZINC57OI4 TP (12:52)
[2023-04-23] MEDS ORDERED: AMIK250V13 IV (12:52)
[2023-04-23] MEDS ORDERED: INSU100V39 SQ (12:52)
[2023-04-23] MEDS ORDERED: MAGN400O6 GT (12:52)
[2023-04-23] MEDS ORDERED: MIDO10TA GT (12:52)
[2023-04-23] MEDS ORDERED: NYST15PO4 TP (12:52)
[2023-04-23] MEDS ORDERED: ASCO-352 GT (12:52)
[2023-04-23] MEDS ORDERED: MIDO5TAB4 GT (12:52)
[2023-04-23] MEDS ORDERED: Medication Not On Formulary EA (Allantoin (Remedy Zguard 2 Oz Oint) 2 OZ) TP SCH (13:00)
[2023-04-23] MEDS ORDERED: POLYETHYLENE GLYCOL 3350 17 GM POWD.PACK GT PRN (13:00)
[2023-04-23 13:07] LABS: INR 1.09 (0.91-1.10); PARTIAL THROMBOPLASTIN TIME 26.1 SEC (24.3-34.3); PROTHROMBIN TIME 11.2 SECS (9.2-11.1)
[2023-04-23 13:09] LABS: CALCIUM, SERUM 8.6 mg/dL (8.5-10.1)
[2023-04-23] MEDS ORDERED: Z GUARD REMEDY 4 OZ OINT TP PRN (13:30)
[2023-04-23] MEDS: ALBUTEROL FS 2.5 MG/0.5 ML VIAL.NEB NEB SCH (13:30)
[2023-04-23] MEDS: IPRATROPIUM NEB FS 0.5 MG/2.5 ML AMPUL.NEB NEB SCH (13:30)
[2023-04-23] MEDS ORDERED: PANTOPRAZOLE 40 MG VIAL IV SCH (13:30)
[2023-04-23] MEDS ORDERED: MAGNESIUM HYDROXIDE 30 ML UDC PO PRN (13:30)
[2023-04-23] MEDS ORDERED: DEXTROSE 50%-WATER 50 ML DISP.SYRIN IV PRN (13:30)
[2023-04-23] MEDS ORDERED: MAG HYDROX/AL HYDROX/SIMETH 30 ML UDC PO PRN (13:30)
[2023-04-23] MEDS ORDERED: ONDANSETRON HCL/PF 4 MG/2 ML VIAL IVP PRN (13:30)
[2023-04-23] MEDS ORDERED: ACETAMINOPHEN 325 MG TABLET PO PRN (13:30)
[2023-04-23 13:42] LABS: ANISOCYTOSIS 1+; BAND % (MANUAL) 4 % (0.0-5.0); BASOPHILS % (MANUAL) 0 % (0.0-2.0); EOSINOPHILS % (MANUAL) 12 % (0-4); HYPOCHROMASIA 1+; LYMPHOCYTES % (MANUAL) 16 % (16-48); MONOCYTES % (MANUAL) 4 % (0-11.0); NEUTROPHILS % (MANUAL) 64 (42-76); PLATELET ESTIMATE ADEQUATE; STOMATOCYTES 1+
[2023-04-23] MEDS ORDERED: LEVOFLOXACIN 750 MG /D5W 150ML 150 ML IV ONE (14:41)
[2023-04-23] MEDS: LEVOFLOXACIN 750 MG /D5W 150ML PIGGYBACK IV ONE (14:45)
[2023-04-23] MEDS: MIDODRINE HCL (5MG) 5 MG TABLET GT SCH (17:00)
[2023-04-23] MEDS ORDERED: Medication Not On Formulary EA (Ipratropium/Albuterol Sulfate (Ipratr-Albuterol 0.5-3 Mg IH SCH (18:00)
[2023-04-23 18:44] VITALS: O2SAT 100
[2023-04-23] MEDS ORDERED: IPRATROPIUM NEB FS 0.5 MG/2.5 ML AMPUL.NEB ONE (19:38)
[2023-04-23] MEDS ORDERED: ALBUTEROL FS 2.5 MG/0.5 ML VIAL.NEB ONE (19:38)
[2023-04-23 20:06] VITALS: BP 95/74; TEMP 97.5; O2SAT 100
[2023-04-23] MEDS: clonazePAM 0.5 MG TABLET GT SCH (21:00)
[2023-04-23] MEDS: PANTOPRAZOLE 40 MG VIAL IV SCH (21:31)
[2023-04-23] MEDS: CHLORHEXIDINE GLUCONATE 15 ML UDC MM SCH (21:31)
[2023-04-23] MEDS: BLOOD SUGAR DIAGNOSTIC 1 EACH STRIP IN SCH (21:38)
[2023-04-23 22:52] LABS: HEMOGLOBIN 6.1 g/dL (11.5-14.8)
[2023-04-23 22:55] VITALS: BP 91/44; TEMP 97.6
[2023-04-23 23:10] VITALS: BP 92/44; TEMP 97.7
[2023-04-23 23:15] VITALS: BP 106/40; TEMP 97.8
[2023-04-23 23:41] VITALS: BP 106/42; TEMP 97.8
[2023-04-24] VITALS: BP 93/49; TEMP 97.1; O2SAT 100
[2023-04-24 04:00] VITALS: BP 121/67; TEMP 97.3; O2SAT 100
[2023-04-24 06:42] LABS: BASOPHILS % (AUTO) 0.5 % (0.0-2.0); EOSINOPHILS # (AUTO) 0.4 K/uL (0.0-0.7); EOSINOPHILS % (AUTO) 8.6 % (0.0-6.0); HEMATOCRIT 23 % (33-45); HEMOGLOBIN 7.4 g/dL (11.5-14.8); LYMPHOCYTES # (AUTO) 0.6 K/uL (0.8-4.8); LYMPHOCYTES % (AUTO) 12.9 % (20.0-44.0); MEAN CORPUSCULAR HEMOGLOBIN 29 PG (26.0-33.0); MEAN CORPUSCULAR HGB CONC 32 g/dl (31.0-36.0); MEAN CORPUSCULAR VOLUME 91 fL (82-100); MONOCYTES # (AUTO) 0.5 K/uL (0.1-1.30); MONOCYTES % (AUTO) 11.4 % (2.0-12.0); NEUTROPHILS # (AUTO) 3.2 K/uL (1.8-8.9); NEUTROPHILS % (AUTO) 66.6 % (43.0-81.0); PLATELET COUNT (AUTO) 177 K/uL (150-450); RED BLOOD CELL COUNT(AUTO) 2.54 MIL/uL (4.0-5.2); RED CELL DISTRIBUTION WIDTH 17.7 % (11.5-15.0); WHITE BLOOD COUNT (AUTO) 4.7 K/uL (4.3-11.0)
[2023-04-24 07:00] VITALS: BP 117/49; TEMP 97.7; O2SAT 100
[2023-04-24 07:24] LABS: ALANINE AMINOTRANSFERASE 8 U/L (12-78); ALBUMIN 1.8 g/dL (3.4-5.0); ALKALINE PHOSPHATASE 148 U/L (46-116); ASPARTATE AMINOTRANSFERASE 17 U/L (15-37); BILIRUBIN,TOTAL 0.5 mg/dL (0.2-1.0); CALCIUM, SERUM 8.6 mg/dL (8.5-10.1); CARBON DIOXIDE 27 mmol/L (21-32); CHLORIDE 102 mmol/L (98-107); CREATININE 1.5 mg/dL (0.6-1.3); GLUCOSE 124 mg/dL (74-106); PHOSPHORUS 1.5 mg/dL (2.5-4.9); POTASSIUM 3.3 mmol/L (3.5-5.1); SODIUM SERUM 139 mmol/L (136-145); TOTAL PROTEIN, SERUM 6.1 g/dL (6.4-8.2); UREA NITROGEN, BLOOD 21 mg/dL (7-18)
[2023-04-24] MEDS: DAKINS QUARTER STRENGTH (0.125%) 480 ML BOTTLE TOP SCH ×2 (09:00→10:53)
[2023-04-24] MEDS: POTASSIUM CL. PREMIX PERIPHER. 50 ML IV SCH (09:42)
[2023-04-24] MEDS: busPIRone 5 MG TABLET GT SCH (09:43)
[2023-04-24] MEDS: ASCORBIC ACID 500 MG TABLET GT SCH (09:43)
[2023-04-24] MEDS: AMIODARONE HCL 200 MG TABLET GT SCH (09:44)
[2023-04-24] MEDS: CLOTRIMAZOLE 1% 15 GM TUBE TP SCH (10:53)
[2023-04-24] MEDS: VITAMINS A AND D 56.7 GM TUBE TP SCH (10:59)
[2023-04-24] MEDS: NYSTATIN TOP POWDER 15 GM BOTTLE TP SCH (12:01)
[2023-04-24] MEDS: NEPRO 1,000 ML BOTTLE GT PRN (15:00)
[2023-04-24 16:00] VITALS: BP 121/60; TEMP 98.4; O2SAT 100
[2023-04-24] MEDS: NEUTRA PHOS 1 POWD.PACKET GT ONE (16:15)
[2023-04-24] MEDS: INSULIN REGULAR, HUMAN 100 UNIT/ML 3 ML VIAL SQ PRN (17:35)
[2023-04-24 20:00] VITALS: BP 85/50; TEMP 97.3; O2SAT 100
[2023-04-24] MEDS: MIDODRINE HCL (5MG) 5 MG TABLET GT PRN (21:28)
[2023-04-25] VITALS: BP 95/60; TEMP 97.7; O2SAT 100
[2023-04-25 04:00] VITALS: BP 100/47; TEMP 98.4; O2SAT 100
[2023-04-25 06:17] LABS: BASOPHILS % (AUTO) 0.5 % (0.0-2.0); EOSINOPHILS % (AUTO) 10.4 % (0.0-6.0); HEMATOCRIT 22 % (33-45); HEMOGLOBIN 7.2 g/dL (11.5-14.8); LYMPHOCYTES % (AUTO) 15.5 % (20.0-44.0); MEAN CORPUSCULAR HEMOGLOBIN 29 PG (26.0-33.0); MEAN CORPUSCULAR HGB CONC 33 g/dl (31.0-36.0); MEAN CORPUSCULAR VOLUME 90 fL (82-100); MONOCYTES % (AUTO) 11.8 % (2.0-12.0); NEUTROPHILS % (AUTO) 61.8 % (43.0-81.0); PLATELET COUNT (AUTO) 229 K/uL (150-450); RED BLOOD CELL COUNT(AUTO) 2.45 MIL/uL (4.0-5.2); RED CELL DISTRIBUTION WIDTH 17.7 % (11.5-15.0); WHITE BLOOD COUNT (AUTO) 5.5 K/uL (4.3-11.0)
[2023-04-25 06:18] LABS: EOSINOPHILS # (AUTO) 0.6 K/uL (0.0-0.7); LYMPHOCYTES # (AUTO) 0.9 K/uL (0.8-4.8); MONOCYTES # (AUTO) 0.7 K/uL (0.1-1.30); NEUTROPHILS # (AUTO) 3.4 K/uL (1.8-8.9)
[2023-04-25 06:49] LABS: CALCIUM, SERUM 8.8 mg/dL (8.5-10.1); CARBON DIOXIDE 30 mmol/L (21-32); CHLORIDE 102 mmol/L (98-107); GLUCOSE 196 mg/dL (74-106); POTASSIUM 3.6 mmol/L (3.5-5.1); SODIUM SERUM 140 mmol/L (136-145); UREA NITROGEN, BLOOD 29 mg/dL (7-18)
[2023-04-25 08:00] VITALS: BP 144/70; TEMP 100.2; O2SAT 100
[2023-04-25] MEDS: NEUTRA PHOS 1 POWD.PACKET GT ONE (11:11)
[2023-04-25 12:00] VITALS: BP 110/55; TEMP 97.5; O2SAT 100
[2023-04-25 15:20] LABS: OCCULT BLOOD STOOL NEGATIVE (NEGATIVE)
[2023-04-25 15:39] VITALS: BP 131/54; TEMP 98; O2SAT 100
[2023-04-25] MEDS ORDERED: PROSOURCE / PROSTAT (PYXIS) 30 ML UDC GT SCH (17:00)
[2023-04-25] MEDS: PROSOURCE / PROSTAT (PYXIS) 30 ML UDC GT SCH (17:12)
[2023-04-25 20:00] VITALS: BP 119/58; TEMP 98.4; O2SAT 99
[2023-04-25] MEDS: PANTOPRAZOLE 40 MG/PACK PACK GT SCH (20:20)
[2023-04-26] VITALS: BP 119/54; TEMP 98.2; O2SAT 100
[2023-04-26 04:00] VITALS: BP 103/52; TEMP 98.4; O2SAT 100
[2023-04-26] MEDS: NEPRO 1,000 ML BOTTLE GT SCH (05:09)
[2023-04-26 07:31] LABS: BASOPHILS % (AUTO) 0.5 % (0.0-2.0); EOSINOPHILS # (AUTO) 0.5 K/uL (0.0-0.7); EOSINOPHILS % (AUTO) 9.8 % (0.0-6.0); HEMATOCRIT 23 % (33-45); HEMOGLOBIN 7.3 g/dL (11.5-14.8); LYMPHOCYTES # (AUTO) 0.9 K/uL (0.8-4.8); LYMPHOCYTES % (AUTO) 16.6 % (20.0-44.0); MEAN CORPUSCULAR HEMOGLOBIN 29 PG (26.0-33.0); MEAN CORPUSCULAR HGB CONC 32 g/dl (31.0-36.0); MEAN CORPUSCULAR VOLUME 91 fL (82-100); MONOCYTES # (AUTO) 0.6 K/uL (0.1-1.30); MONOCYTES % (AUTO) 11.2 % (2.0-12.0); NEUTROPHILS # (AUTO) 3.2 K/uL (1.8-8.9); NEUTROPHILS % (AUTO) 61.9 % (43.0-81.0); PLATELET COUNT (AUTO) 162 K/uL (150-450); RED BLOOD CELL COUNT(AUTO) 2.51 MIL/uL (4.0-5.2); RED CELL DISTRIBUTION WIDTH 17.7 % (11.5-15.0); WHITE BLOOD COUNT (AUTO) 5.2 K/uL (4.3-11.0)
[2023-04-26 08:00] LABS: CALCIUM, SERUM 9.1 mg/dL (8.5-10.1); CARBON DIOXIDE 31 mmol/L (21-32); CHLORIDE 100 mmol/L (98-107); GLUCOSE 172 mg/dL (74-106); POTASSIUM 3.6 mmol/L (3.5-5.1); SODIUM SERUM 138 mmol/L (136-145); UREA NITROGEN, BLOOD 24 mg/dL (7-18)
[2023-04-26 08:29] VITALS: BP_SYST 105; BP_SYST 148; BP_DIAS 44; BP_DIAS 89; TEMP 97.9; TEMP 98.4; O2SAT 100; O2SAT 99
[2023-04-26 12:00] VITALS: BP 101/54; TEMP 98.1; O2SAT 100
[2023-04-26 16:09] VITALS: BP 108/40; TEMP 97.7; O2SAT 100
[2023-04-26 20:00] VITALS: BP 97/45; TEMP 97.5; O2SAT 100
[2023-04-27] VITALS: BP 146/55; TEMP 98.4; O2SAT 100
[2023-04-27 04:00] VITALS: BP 135/56; TEMP 97.9; O2SAT 100
[2023-04-27 07:26] LABS: BASOPHILS % (AUTO) 0.5 % (0.0-2.0); EOSINOPHILS # (AUTO) 0.7 K/uL (0.0-0.7); EOSINOPHILS % (AUTO) 10.9 % (0.0-6.0); HEMATOCRIT 24 % (33-45); HEMOGLOBIN 7.6 g/dL (11.5-14.8); LYMPHOCYTES % (AUTO) 14.5 % (20.0-44.0); MEAN CORPUSCULAR HEMOGLOBIN 28 PG (26.0-33.0); MEAN CORPUSCULAR HGB CONC 31 g/dl (31.0-36.0); MEAN CORPUSCULAR VOLUME 91 fL (82-100); MONOCYTES # (AUTO) 0.6 K/uL (0.1-1.30); MONOCYTES % (AUTO) 9.8 % (2.0-12.0); NEUTROPHILS # (AUTO) 4.3 K/uL (1.8-8.9); NEUTROPHILS % (AUTO) 64.3 % (43.0-81.0); PLATELET COUNT (AUTO) 204 K/uL (150-450); RED BLOOD CELL COUNT(AUTO) 2.68 MIL/uL (4.0-5.2); RED CELL DISTRIBUTION WIDTH 17.8 % (11.5-15.0); WHITE BLOOD COUNT (AUTO) 6.6 K/uL (4.3-11.0)
[2023-04-27 08:00] VITALS: BP 90/51; TEMP 97.9; O2SAT 100
[2023-04-27 08:22] LABS: CALCIUM, SERUM 9.5 mg/dL (8.5-10.1); CARBON DIOXIDE 30 mmol/L (21-32); CHLORIDE 100 mmol/L (98-107); CREATININE 2.4 mg/dL (0.6-1.3); GLUCOSE 180 mg/dL (74-106); MAGNESIUM 2.2 mg/dL (1.8-2.4); PHOSPHORUS 2.2 mg/dL (2.5-4.9); POTASSIUM 3.7 mmol/L (3.5-5.1); SODIUM SERUM 139 mmol/L (136-145); UREA NITROGEN, BLOOD 39 mg/dL (7-18)
[2023-04-27 12:00] VITALS: BP 90/43; TEMP 98.1; O2SAT 100
[2023-04-27 16:00] VITALS: BP 94/32; TEMP 97.5; O2SAT 100
[2023-04-27] MEDS: NEUTRA PHOS 1 POWD.PACKET NG ONE (17:10)
[2023-04-27 20:00] VITALS: BP 139/56; TEMP 97.7; O2SAT 100
[2023-04-28] VITALS: BP 121/96; TEMP 98.6; O2SAT 100
[2023-04-28 04:00] VITALS: BP 118/70; TEMP 98.4; O2SAT 100
[2023-04-28 07:24] LABS: BASOPHILS % (AUTO) 0.3 % (0.0-2.0); EOSINOPHILS # (AUTO) 0.6 K/uL (0.0-0.7); EOSINOPHILS % (AUTO) 8.9 % (0.0-6.0); HEMATOCRIT 25 % (33-45); LYMPHOCYTES % (AUTO) 13.3 % (20.0-44.0); MEAN CORPUSCULAR HEMOGLOBIN 29 PG (26.0-33.0); MEAN CORPUSCULAR HGB CONC 32 g/dl (31.0-36.0); MEAN CORPUSCULAR VOLUME 91 fL (82-100); MONOCYTES # (AUTO) 0.6 K/uL (0.1-1.30); MONOCYTES % (AUTO) 8.2 % (2.0-12.0); NEUTROPHILS % (AUTO) 69.3 % (43.0-81.0); PLATELET COUNT (AUTO) 163 K/uL (150-450); RED BLOOD CELL COUNT(AUTO) 2.79 MIL/uL (4.0-5.2); RED CELL DISTRIBUTION WIDTH 17.4 % (11.5-15.0); WHITE BLOOD COUNT (AUTO) 7.3 K/uL (4.3-11.0)
[2023-04-28 07:49] LABS: CALCIUM, SERUM 9.9 mg/dL (8.5-10.1); CARBON DIOXIDE 28 mmol/L (21-32); CHLORIDE 99 mmol/L (98-107); CREATININE 2.2 mg/dL (0.6-1.3); GLUCOSE 189 mg/dL (74-106); POTASSIUM 3.5 mmol/L (3.5-5.1); SODIUM SERUM 137 mmol/L (136-145); UREA NITROGEN, BLOOD 36 mg/dL (7-18)
[2023-04-28 08:00] VITALS: BP 107/60; TEMP 98.2; O2SAT 100
[2023-04-28 12:00] VITALS: BP 103/42; TEMP 98.1; O2SAT 100
[2023-04-28] MEDS: SILVER NITRATE APPLICATOR 1 EA BOX TP SCH (15:04)
[2023-04-28] MEDS: LIDOCAINE 1%-EPI 1:100,000 20 ML VIAL TP ONE (15:04)
[2023-04-28 16:00] VITALS: BP 114/54; TEMP 97.4; O2SAT 100
[2023-04-28 20:33] VITALS: BP 117/54; TEMP 97.9; O2SAT 100
[2023-04-29 00:31] VITALS: BP 102/58; TEMP 98.2; O2SAT 100
[2023-04-29 03:35] VITALS: BP 91/30; TEMP 98.6; O2SAT 100
[2023-04-29 06:57] LABS: BASOPHILS % (AUTO) 0.2 % (0.0-2.0); EOSINOPHILS # (AUTO) 0.7 K/uL (0.0-0.7); EOSINOPHILS % (AUTO) 8.6 % (0.0-6.0); HEMATOCRIT 24 % (33-45); HEMOGLOBIN 7.4 g/dL (11.5-14.8); LYMPHOCYTES # (AUTO) 1.1 K/uL (0.8-4.8); LYMPHOCYTES % (AUTO) 13.5 % (20.0-44.0); MEAN CORPUSCULAR HEMOGLOBIN 29 PG (26.0-33.0); MEAN CORPUSCULAR HGB CONC 32 g/dl (31.0-36.0); MEAN CORPUSCULAR VOLUME 91 fL (82-100); MONOCYTES # (AUTO) 0.6 K/uL (0.1-1.30); MONOCYTES % (AUTO) 7.1 % (2.0-12.0); NEUTROPHILS # (AUTO) 5.8 K/uL (1.8-8.9); NEUTROPHILS % (AUTO) 70.6 % (43.0-81.0); PLATELET COUNT (AUTO) 197 K/uL (150-450); RED BLOOD CELL COUNT(AUTO) 2.58 MIL/uL (4.0-5.2); RED CELL DISTRIBUTION WIDTH 17.7 % (11.5-15.0); WHITE BLOOD COUNT (AUTO) 8.3 K/uL (4.3-11.0)
[2023-04-29 07:50] LABS: CARBON DIOXIDE 29 mmol/L (21-32); CHLORIDE 99 mmol/L (98-107); CREATININE 2.7 mg/dL (0.6-1.3); GLUCOSE 178 mg/dL (74-106); SODIUM SERUM 136 mmol/L (136-145); UREA NITROGEN, BLOOD 51 mg/dL (7-18)
[2023-04-29 08:00] VITALS: BP 109/62; TEMP 97.6; O2SAT 100
[2023-04-29 11:56] VITALS: BP 114/53; TEMP 98; O2SAT 96
[2023-04-29] MEDS: EPOETIN ALFA (10,000 UNIT) 10,000 UNIT/ML VIAL IV ONE (15:04)
[2023-04-29 16:00] VITALS: BP 110/56; TEMP 97.3; O2SAT 100
[2023-04-29 16:22] VITALS: BP 110/56
== END 2023-04-29 18:31 | DRG 264 ==
LOC: ER 11:43 → TELE 19:33
PROVIDERS: ADMIT Nurse Practitioner Acute Care; ATTEND Internal Medicine
PROC: 5A1955Z Respiratory Ventilation, Greater than 96 Consecutive Hours (ICD-10-PCS; principal; 2023-04-23)
PROC: 05HB33Z Insertion of Infusion Device into Right Basilic Vein, Percutaneous Approach (ICD-10-PCS; 2023-04-23)
PROC: 5A1D70Z Performance of Urinary Filtration, Intermittent, Less than 6 Hours Per Day (ICD-10-PCS; 2023-04-23)
PROC: 30233N1 Transfusion of Nonautologous Red Blood Cells into Peripheral Vein, Percutaneous Approach (ICD-10-PCS; 2023-04-23)
PROC: 0JB70ZZ Excision of Back Subcutaneous Tissue and Fascia, Open Approach (ICD-10-PCS; 2023-04-28)
DX: I13.2 Hypertensive heart and chronic kidney disease with heart failure and with stage 5 chronic kidney disease, or end stage renal disease (principal); L89.103 Pressure ulcer of unspecified part of back, stage 3; N18.6 End stage renal disease; R53.2 Functional quadriplegia; E44.0 Moderate protein-calorie malnutrition; J96.10 Chronic respiratory failure, unspecified whether with hypoxia or hypercapnia; I48.20 Chronic atrial fibrillation, unspecified; Z99.11 Dependence on respirator [ventilator] status; J98.11 Atelectasis; G93.49 Other encephalopathy; J90 Pleural effusion, not elsewhere classified; F03.94 Unspecified dementia, unspecified severity, with anxiety; F03.93 Unspecified dementia, unspecified severity, with mood disturbance; M84.48XA Pathological fracture, other site, initial encounter for fracture; N17.9 Acute kidney failure, unspecified; D64.9 Anemia, unspecified; E83.39 Other disorders of phosphorus metabolism; E11.22 Type 2 diabetes mellitus with diabetic chronic kidney disease; I50.9 Heart failure, unspecified; E87.6 Hypokalemia; K21.9 Gastro-esophageal reflux disease without esophagitis; Z99.2 Dependence on renal dialysis; Z93.0 Tracheostomy status; Z93.1 Gastrostomy status; R13.10 Dysphagia, unspecified; Z20.822 Contact with and (suspected) exposure to COVID-19; I25.10 Atherosclerotic heart disease of native coronary artery without angina pectoris; Z79.4 Long term (current) use of insulin; M24.571 Contracture, right ankle; M24.572 Contracture, left ankle; K57.30 Diverticulosis of large intestine without perforation or abscess without bleeding; Z88.0 Allergy status to penicillin; Z88.5 Allergy status to narcotic agent; Z88.8 Allergy status to other drugs, medicaments and biological substances; Z79.899 Other long term (current) drug therapy; Z79.51 Long term (current) use of inhaled steroids; E78.5 Hyperlipidemia, unspecified; E88.09 Other disorders of plasma-protein metabolism, not elsewhere classified; L89.156 Pressure-induced deep tissue damage of sacral region; F41.9 Anxiety disorder, unspecified; F32.A Depression, unspecified; F29 Unspecified psychosis not due to a substance or known physiological condition; L85.3 Xerosis cutis; S60.521A Blister (nonthermal) of right hand, initial encounter; X58.XXXA Exposure to other specified factors, initial encounter; Y92.9 Unspecified place or not applicable; L89.616 Pressure-induced deep tissue damage of right heel; S91.119A Laceration without foreign body of unspecified toe without damage to nail, initial encounter; N18.9 Chronic kidney disease, unspecified; D63.1 Anemia in chronic kidney disease
CPT/HCPCS: 31720; 36415; 71045-TC; 80048-TC; 80053-TC; 80076-TC; 82272-TC; 82962-TC; 83690-TC; 83735-TC; 84100-TC; 85025-TC; 85027-TC; 85730-TC; 86850-TC; 87040-TC; 87081-TC; 90935-TC; 94002-TC; 94003-TC; 94760-TC; 94762-TC; 94799-TC; 99082-TC; A4223; A4623; A6403; C9113; G0378; J0885; J1815; J1956; J3480; J3490; J7030; P9016

== ENCOUNTER 2023-05-04 09:37 | Emergency (ER) | payer MEDICARE, OTHER ==
[~2023-05-04] VITALS: Ht 172.7 cm; Wt 99.8 kg
[~2023-05-04 09:37] MED LIST changes: -*INS REG3 SQ; -ACET-2605 GT; +AMIK250V13 IV; -AMIN30LI2 GT; -ARGI1POW13 GT; +ASCO-352 GT; -ASCO-495 GT; -GLUC1KIT IM; -HEPA50008 SQ; +INSU100V39 SQ; -LACT1CAP7 GT; +MAGN400O6 GT; +MIDO10TA GT; -MIDO2.5T PO; +MIDO5TAB4 GT; -NORM210S TP; +NYST15PO4 TP; +OMEP40CA21 GT; -ONDA-97 GT; -PETR113O TP; +POLY17PO4 GT; +ZINC57OI4 TP
[2023-05-04 10:20] LABS: BASOPHILS % (AUTO) 0.3 % (0.0-2.0); EOSINOPHILS # (AUTO) 0.7 K/uL (0.0-0.7); EOSINOPHILS % (AUTO) 6.6 % (0.0-6.0); HEMATOCRIT 24 % (33-45); HEMOGLOBIN 7.6 g/dL (11.5-14.8); LYMPHOCYTES # (AUTO) 1.6 K/uL (0.8-4.8); LYMPHOCYTES % (AUTO) 15.5 % (20.0-44.0); MEAN CORPUSCULAR HEMOGLOBIN 29 PG (26.0-33.0); MEAN CORPUSCULAR HGB CONC 32 g/dl (31.0-36.0); MEAN CORPUSCULAR VOLUME 91 fL (82-100); MONOCYTES # (AUTO) 0.8 K/uL (0.1-1.30); NEUTROPHILS % (AUTO) 69.6 % (43.0-81.0); PLATELET COUNT (AUTO) 166 K/uL (150-450); RED BLOOD CELL COUNT(AUTO) 2.57 MIL/uL (4.0-5.2); RED CELL DISTRIBUTION WIDTH 17.8 % (11.5-15.0); WHITE BLOOD COUNT (AUTO) 10.1 K/uL (4.3-11.0)
[2023-05-04 10:30] LABS: INR 1.05 (0.91-1.10); PARTIAL THROMBOPLASTIN TIME 38.5 SEC (24.3-34.3); PROTHROMBIN TIME 11.1 SECS (9.2-11.1)
[2023-05-04 10:32] LABS: CALCIUM, SERUM 9.1 mg/dL (8.5-10.1); CARBON DIOXIDE 25 mmol/L (21-32); CHLORIDE 102 mmol/L (98-107); GLUCOSE 136 mg/dL (74-106); POTASSIUM 3.1 mmol/L (3.5-5.1); SODIUM SERUM 139 mmol/L (136-145); UREA NITROGEN, BLOOD 17 mg/dL (7-18)
[2023-05-04 10:36] LABS: ALANINE AMINOTRANSFERASE 13 U/L (12-78); ALBUMIN 1.8 g/dL (3.4-5.0); ALKALINE PHOSPHATASE 231 U/L (46-116); ASPARTATE AMINOTRANSFERASE 23 U/L (15-37); BILIRUBIN,DIRECT 0.1 mg/dL (0.0-0.2); BILIRUBIN,TOTAL 0.4 mg/dL (0.2-1.0); TOTAL PROTEIN, SERUM 6.6 g/dL (6.4-8.2)
[2023-05-04 10:40] LABS: LACTIC ACID 1.1 mmol/L (0.4-2.0)
[2023-05-04 12:15] VITALS: BP 117/42; TEMP 98.3; O2SAT 100
== END 2023-05-04 12:16 ==
LOC: ER 09:40
DX: J96.10 Chronic respiratory failure, unspecified whether with hypoxia or hypercapnia (principal); I95.9 Hypotension, unspecified; I13.2 Hypertensive heart and chronic kidney disease with heart failure and with stage 5 chronic kidney disease, or end stage renal disease; E11.22 Type 2 diabetes mellitus with diabetic chronic kidney disease; N18.6 End stage renal disease; I50.9 Heart failure, unspecified; Z99.2 Dependence on renal dialysis; Z88.0 Allergy status to penicillin; Z88.5 Allergy status to narcotic agent; Z88.8 Allergy status to other drugs, medicaments and biological substances; Z79.4 Long term (current) use of insulin; Z79.899 Other long term (current) drug therapy
CPT/HCPCS: 36415; 71045-TC; 80048-TC; 80076-TC; 83605-TC; 84484-TC; 85025-TC; 85730-TC; 87040-TC

== ENCOUNTER 2023-05-13 13:51 | Inpatient (IN) | payer MEDICARE, OTHER ==
[~2023-05-13] VITALS: Ht 172.7 cm; Wt 105.2 kg
[2023-05-13] MEDS ORDERED: PANTOPRAZOLE 40 MG VIAL ONE (14:06)
[2023-05-13] MEDS ORDERED: [UNRECOGNIZED DRUG - OTHER] TP (14:44)
[2023-05-13] MEDS ORDERED: ARGI1POW13 GT (14:44)
[2023-05-13] MEDS ORDERED: HYDR170P TP (14:44)
[2023-05-13] MEDS ORDERED: ZINC50TA39 GT (14:44)
[2023-05-13] MEDS ORDERED: FERR325T28 GT (14:44)
[2023-05-13] MEDS ORDERED: ASCO-495 GT (14:44)
[2023-05-13] MEDS ORDERED: FOLI0.4T6 GT (14:44)
[2023-05-13] MEDS ORDERED: ESOM40CA52 GT (14:44)
[2023-05-13] MEDS ORDERED: AMIN30LI2 GT (14:44)
[2023-05-13] MEDS: PANTOPRAZOLE 40 MG VIAL IV ONE (14:47)
[2023-05-13 14:58] LABS: BASOPHILS % (AUTO) 0.4 % (0.0-2.0); EOSINOPHILS # (AUTO) 1.3 K/uL (0.0-0.7); EOSINOPHILS % (AUTO) 14.1 % (0.0-6.0); HEMATOCRIT 23 % (33-45); HEMOGLOBIN 7.1 g/dL (11.5-14.8); LYMPHOCYTES # (AUTO) 1.5 K/uL (0.8-4.8); LYMPHOCYTES % (AUTO) 16.2 % (20.0-44.0); MEAN CORPUSCULAR HEMOGLOBIN 28 PG (26.0-33.0); MEAN CORPUSCULAR HGB CONC 31 g/dl (31.0-36.0); MEAN CORPUSCULAR VOLUME 92 fL (82-100); MONOCYTES # (AUTO) 0.7 K/uL (0.1-1.30); NEUTROPHILS # (AUTO) 5.6 K/uL (1.8-8.9); NEUTROPHILS % (AUTO) 61.3 % (43.0-81.0); PLATELET COUNT (AUTO) 192 K/uL (150-450); RED BLOOD CELL COUNT(AUTO) 2.53 MIL/uL (4.0-5.2); WHITE BLOOD COUNT (AUTO) 9.1 K/uL (4.3-11.0)
[2023-05-13 15:14] LABS: ALANINE AMINOTRANSFERASE 17 U/L (12-78); ALBUMIN 1.9 g/dL (3.4-5.0); ALKALINE PHOSPHATASE 226 U/L (46-116); ASPARTATE AMINOTRANSFERASE 16 U/L (15-37); BILIRUBIN,DIRECT 0.1 mg/dL (0.0-0.2); BILIRUBIN,TOTAL 0.3 mg/dL (0.2-1.0); CALCIUM, SERUM 8.6 mg/dL (8.5-10.1); CARBON DIOXIDE 29 mmol/L (21-32); CHLORIDE 104 mmol/L (98-107); CREATININE 1.3 mg/dL (0.6-1.3); GLUCOSE 172 mg/dL (74-106); LIPASE 29 U/L (16-77); POTASSIUM 2.9 mmol/L (3.5-5.1); SODIUM SERUM 138 mmol/L (136-145); TOTAL PROTEIN, SERUM 6.8 g/dL (6.4-8.2); UREA NITROGEN, BLOOD 30 mg/dL (7-18)
[2023-05-13 15:17] LABS: INR 1.05 (0.91-1.10); PARTIAL THROMBOPLASTIN TIME 24.4 SEC (24.3-34.3); PROTHROMBIN TIME 10.8 SECS (9.2-11.1)
[2023-05-13 15:52] VITALS: O2SAT 100
[2023-05-13 17:50] LABS: APPEARANCE,URINE CLOUDY (CLEAR); COLOR,URINE YELLOW (YELLOW)
[2023-05-13 17:51] LABS: PH,URINE 6.5 (5.0-8.0); PROTEIN,URINE 3+ mg/dl (NEGATIVE); UGLUCOSE NEGATIVE (NEGATIVE)
[2023-05-13 17:52] LABS: BILIRUBIN,URINE NEGATIVE (NEGATIVE); BLOOD, URINE LARGE Ery/uL (NEGATIVE); KETONES,URINE NEGATIVE (NEGATIVE); LEUKOCYTE ESTERASE ,URINE LARGE (NEGATIVE); NITRITE, URINE NEGATIVE (NEGATIVE); UROBILINOGEN,URINE 0.2 EU/dL (0.2)
[2023-05-13 18:03] LABS: ADD URINE CULTURE YES; BACTERIA,URINE 2+ /HPF (None Seen); RBC,URINE 21-50 /HPF (0-2); SQUAMOUS EPITHELIAL CELL,UR Few /HPF (None Seen); WBC,URINE TOO NUMEROUS TO COUN /HPF (0-3)
[2023-05-13] MEDS ORDERED: CEFTRIAXONE 1GM BAG (ER ONLY) 50 ML IV ONE (19:25)
[2023-05-13 20:00] VITALS: BP 114/58; TEMP 98.4; O2SAT 100
[2023-05-13] MEDS: CEFTRIAXONE 1 G in IV D5W 50 ML IV ONE (20:00)
[2023-05-13] MEDS ORDERED: POLYETHYLENE GLYCOL 3350 17 GM POWD.PACK GT PRN (20:30)
[2023-05-13 21:16] VITALS: O2SAT 100
[2023-05-13] MEDS: CHLORHEXIDINE GLUCONATE 15 ML UDC MM SCH (23:55)
[2023-05-13] MEDS: clonazePAM 0.5 MG TABLET GT SCH (23:55)
[2023-05-14] VITALS: BP 112/54; TEMP 98.6; O2SAT 100
[2023-05-14] MEDS ORDERED: ONDANSETRON HCL/PF 4 MG/2 ML VIAL IVP PRN
[2023-05-14] MEDS ORDERED: DEXTROSE 50%-WATER 50 ML DISP.SYRIN IV PRN
[2023-05-14] MEDS: BLOOD SUGAR DIAGNOSTIC 1 EACH STRIP IN SCH (00:27)
[2023-05-14] MEDS: INSULIN REGULAR, HUMAN 100 UNIT/ML 3 ML VIAL SQ PRN (00:29)
[2023-05-14 04:00] VITALS: BP 111/60; TEMP 98.4; O2SAT 96
[2023-05-14] MEDS ORDERED: MEROPENEM 500 MG VIAL IV ONE (04:30)
[2023-05-14] MEDS: MEROPENEM 500 MG in IV NS 0.9% 50 ML IV SCH (04:35)
[2023-05-14 07:08] LABS: BASOPHILS # (AUTO) 0.1 K/uL (0.0-0.2); BASOPHILS % (AUTO) 0.8 % (0.0-2.0); EOSINOPHILS # (AUTO) 1.2 K/uL (0.0-0.7); HEMATOCRIT 25 % (33-45); HEMOGLOBIN 8.1 g/dL (11.5-14.8); LYMPHOCYTES # (AUTO) 1.6 K/uL (0.8-4.8); LYMPHOCYTES % (AUTO) 19.4 % (20.0-44.0); MEAN CORPUSCULAR HEMOGLOBIN 29 PG (26.0-33.0); MEAN CORPUSCULAR HGB CONC 32 g/dl (31.0-36.0); MEAN CORPUSCULAR VOLUME 91 fL (82-100); MONOCYTES # (AUTO) 0.6 K/uL (0.1-1.30); MONOCYTES % (AUTO) 7.4 % (2.0-12.0); NEUTROPHILS # (AUTO) 4.6 K/uL (1.8-8.9); NEUTROPHILS % (AUTO) 57.4 % (43.0-81.0); PLATELET COUNT (AUTO) 175 K/uL (150-450); RED BLOOD CELL COUNT(AUTO) 2.76 MIL/uL (4.0-5.2); RED CELL DISTRIBUTION WIDTH 19.3 % (11.5-15.0)
[2023-05-14 07:31] LABS: CALCIUM, SERUM 8.7 mg/dL (8.5-10.1); CARBON DIOXIDE 24 mmol/L (21-32); CHLORIDE 104 mmol/L (98-107); CREATININE 1.7 mg/dL (0.6-1.3); GLUCOSE 132 mg/dL (74-106); MAGNESIUM 2.3 mg/dL (1.8-2.4); PHOSPHORUS 1.6 mg/dL (2.5-4.9); POTASSIUM 3.1 mmol/L (3.5-5.1); SODIUM SERUM 137 mmol/L (136-145); UREA NITROGEN, BLOOD 35 mg/dL (7-18)
[2023-05-14 08:00] VITALS: BP 135/55; TEMP 98.4; O2SAT 100
[2023-05-14 08:15] LABS: THYROID STIMULATING HORMONE 5.889 uIU/mL (0.358-3.74)
[2023-05-14] MEDS: FERROUS SULFATE (325 MG) 325 MG/TAB TABLET GT SCH (10:56)
[2023-05-14] MEDS: busPIRone 5 MG TABLET GT SCH (10:57)
[2023-05-14] MEDS: MIDODRINE HCL (5MG) 5 MG TABLET GT SCH (10:58)
[2023-05-14] MEDS: PANTOPRAZOLE 40 MG/PACK PACK GT SCH (10:59)
[2023-05-14] MEDS: AMIODARONE HCL 200 MG TABLET GT SCH (10:59)
[2023-05-14] MEDS: Z GUARD REMEDY 4 OZ OINT TP PRN (11:05)
[2023-05-14] MEDS: POTASSIUM CHLORIDE 20 MEQ POWDER PACKET NG SCH (11:06)
[2023-05-14] MEDS: NYSTATIN TOP POWDER 15 GM BOTTLE TP SCH (11:06)
[2023-05-14] MEDS: PERMETHRIN 5% CRM 60 GM TUBE TP ONE (11:06)
[2023-05-14] MEDS: IVERMECTIN 3 MG TABLET PO ONE (11:06)
[2023-05-14] MEDS: POTASSIUM CL. PREMIX PERIPHER. 50 ML IV SCH (11:06)
[2023-05-14] MEDS: INSULIN GLARGINE, 100 UNIT/ML CARTRIDGE SQ SCH (11:08)
[2023-05-14] MEDS: DAKINS QUARTER STRENGTH (0.125%) 480 ML BOTTLE TOP SCH (11:09)
[2023-05-14 12:00] VITALS: BP 106/54; TEMP 98.3; O2SAT 100
[2023-05-14] MEDS: NEPRO 1,000 ML BOTTLE GT PRN (14:31)
[2023-05-14] MEDS: ARGININE/GLUTAMINE/CALCIUM BMB 1 EACH POWD.PACK GT SCH (14:32)
[2023-05-14] MEDS: NEUTRA PHOS 1 POWD.PACKET NG ONE (15:59)
[2023-05-14 16:00] VITALS: BP 102/49; TEMP 98.5; O2SAT 100
[2023-05-14] MEDS: PROSOURCE / PROSTAT (PYXIS) 30 ML UDC GT SCH (16:01)
[2023-05-14 20:00] VITALS: BP 119/56; TEMP 98.9; O2SAT 100
[2023-05-15] VITALS: BP 118/50; TEMP 98.6; O2SAT 100
[2023-05-15 04:00] VITALS: BP 130/54; TEMP 98.9; O2SAT 100
[2023-05-15 08:00] VITALS: BP 100/48; TEMP 98.3; O2SAT 100
[2023-05-15 12:00] VITALS: BP 108/43; TEMP 98.3; O2SAT 100
[2023-05-15 16:00] VITALS: BP 107/47; TEMP 97.8; O2SAT 100
[2023-05-15] MEDS: ALBUMIN 25% 25 GM in PREMIX 1 EA IV PRN (19:21)
[2023-05-15 20:00] VITALS: BP 111/55; TEMP 99.1; O2SAT 100
[2023-05-15] MEDS: NEPRO 1,000 ML BOTTLE GT PRN (21:34)
[2023-05-16] VITALS: BP 106/47; TEMP 99.9; O2SAT 100
[2023-05-16] MEDS: ACETAMINOPHEN 325 MG TABLET PO PRN (00:58)
[2023-05-16 04:00] VITALS: BP 109/45; TEMP 98.2; O2SAT 100
[2023-05-16 07:47] VITALS: O2SAT 100
[2023-05-16 08:00] VITALS: BP 107/53; TEMP 98.6; O2SAT 100
[2023-05-16 09:18] VITALS: BP 107/53
[2023-05-16] MEDS ORDERED: ALBUTEROL HALF STRENGTH 1.25 MG/3 ML VIAL.NEB NEB PRN (11:00)
[2023-05-16] MEDS ORDERED: SULF1TAB48 PO (14:35)
== END 2023-05-16 12:41 | DRG 291 ==
LOC: ER 13:55 → TELE1 21:25
PROVIDERS: ADMIT Nurse Practitioner Acute Care; ATTEND Nurse Practitioner Acute Care
PROC: 5A1945Z Respiratory Ventilation, 24-96 Consecutive Hours (ICD-10-PCS; principal; 2023-05-13)
PROC: 30233N1 Transfusion of Nonautologous Red Blood Cells into Peripheral Vein, Percutaneous Approach (ICD-10-PCS; 2023-05-13)
PROC: 05HB33Z Insertion of Infusion Device into Right Basilic Vein, Percutaneous Approach (ICD-10-PCS; 2023-05-13)
PROC: B54MZZA Ultrasonography of Right Upper Extremity Veins, Guidance (ICD-10-PCS; 2023-05-13)
PROC: 5A1D70Z Performance of Urinary Filtration, Intermittent, Less than 6 Hours Per Day (ICD-10-PCS; 2023-05-15)
DX: I13.2 Hypertensive heart and chronic kidney disease with heart failure and with stage 5 chronic kidney disease, or end stage renal disease (principal); G93.41 Metabolic encephalopathy; L89.143 Pressure ulcer of left lower back, stage 3; L89.133 Pressure ulcer of right lower back, stage 3; N18.6 End stage renal disease; R53.2 Functional quadriplegia; D68.69 Other thrombophilia; E44.0 Moderate protein-calorie malnutrition; N39.0 Urinary tract infection, site not specified; Z99.11 Dependence on respirator [ventilator] status; J96.12 Chronic respiratory failure with hypercapnia; J90 Pleural effusion, not elsewhere classified; D63.8 Anemia in other chronic diseases classified elsewhere; I50.32 Chronic diastolic (congestive) heart failure; B86 Scabies; E11.22 Type 2 diabetes mellitus with diabetic chronic kidney disease; E78.5 Hyperlipidemia, unspecified; E87.6 Hypokalemia; E88.09 Other disorders of plasma-protein metabolism, not elsewhere classified; F03.90 Unspecified dementia, unspecified severity, without behavioral disturbance, psychotic disturbance, mood disturbance, and anxiety; I25.10 Atherosclerotic heart disease of native coronary artery without angina pectoris; I48.0 Paroxysmal atrial fibrillation; Z93.0 Tracheostomy status; Z93.1 Gastrostomy status; Z88.0 Allergy status to penicillin; Z99.2 Dependence on renal dialysis; D63.1 Anemia in chronic kidney disease; Z77.090 Contact with and (suspected) exposure to asbestos; R13.10 Dysphagia, unspecified; Z74.01 Bed confinement status; Z86.74 Personal history of sudden cardiac arrest; Z79.4 Long term (current) use of insulin; M24.571 Contracture, right ankle; M24.572 Contracture, left ankle; L89.616 Pressure-induced deep tissue damage of right heel; B96.1 Klebsiella pneumoniae [K. pneumoniae] as the cause of diseases classified elsewhere; L89.159 Pressure ulcer of sacral region, unspecified stage; S91.104A Unspecified open wound of right lesser toe(s) without damage to nail, initial encounter; X58.XXXA Exposure to other specified factors, initial encounter; Y93.9 Activity, unspecified; Y92.129 Unspecified place in nursing home as the place of occurrence of the external cause; Z85.038 Personal history of other malignant neoplasm of large intestine; L98.8 Other specified disorders of the skin and subcutaneous tissue; Z68.35 Body mass index [BMI] 35.0-35.9, adult
CPT/HCPCS: 31720; 36415; 71045-TC; 80048-TC; 80061-TC; 80076-TC; 81001; 82962-TC; 83540-TC; 83690-TC; 83735-TC; 84100-TC; 84443-TC; 84484-TC; 85025-TC; 85730-TC; 86850-TC; 87040-TC; 87081-TC; 87086-TC; 94002-TC; 94003-TC; 94760-TC; 94762-TC; 94799-TC; 99082-TC; A4216; A4223; A4623; A6403; A7526; C9113; G0378; J0696; J1815; J2185; J3480; J7030; J7040; J7050; J7060; P9016; P9047

== ENCOUNTER 2023-06-03 08:53 | Inpatient (IN) | payer MEDICARE, OTHER ==
[~2023-06-03] VITALS: Ht 167.6 cm; Wt 116.1 kg
[~2023-06-03 08:53] MED LIST changes: -AMIK250V13 IV; +AMIN30LI2 GT; +ARGI1POW13 GT; -ASCO-352 GT; +ASCO-495 GT; +ESOM40CA52 GT; +FERR325T28 GT; +FOLI0.4T6 GT; +HYDR170P TP; -IPRA3AMP22 IH; -OMEP40CA21 GT; +SULF1TAB48 PO; -TRIAD TP; +ZINC50TA39 GT; -ZINC57OI4 TP; +[UNRECOGNIZED DRUG - OTHER] TP
[2023-06-03 09:28] LABS: BASOPHILS % (AUTO) 0.1 % (0.0-2.0); EOSINOPHILS # (AUTO) 0.1 K/uL (0.0-0.7); EOSINOPHILS % (AUTO) 0.1 % (0.0-6.0); HEMATOCRIT 28 % (33-45); HEMOGLOBIN 8.3 g/dL (11.5-14.8); LYMPHOCYTES # (AUTO) 1.9 K/uL (0.8-4.8); LYMPHOCYTES % (AUTO) 4.5 % (20.0-44.0); MEAN CORPUSCULAR HEMOGLOBIN 28 PG (26.0-33.0); MEAN CORPUSCULAR HGB CONC 29 g/dl (31.0-36.0); MEAN CORPUSCULAR VOLUME 94 fL (82-100); MONOCYTES # (AUTO) 1.6 K/uL (0.1-1.30); MONOCYTES % (AUTO) 3.8 % (2.0-12.0); NEUTROPHILS # (AUTO) 37.4 K/uL (1.8-8.9); NEUTROPHILS % (AUTO) 91.5 % (43.0-81.0); PLATELET COUNT (AUTO) 212 K/uL (150-450); RED BLOOD CELL COUNT(AUTO) 3.02 MIL/uL (4.0-5.2); RED CELL DISTRIBUTION WIDTH 20.1 % (11.5-15.0)
[2023-06-03 09:35] LABS: WHITE BLOOD COUNT (AUTO) 40.9 K/uL (4.3-11.0)
[2023-06-03 09:36] LABS: CALCIUM, SERUM 8.9 mg/dL (8.5-10.1); CARBON DIOXIDE 26 mmol/L (21-32); CHLORIDE 103 mmol/L (98-107); GLUCOSE 215 mg/dL (74-106); POTASSIUM 3.7 mmol/L (3.5-5.1); SODIUM SERUM 136 mmol/L (136-145); UREA NITROGEN, BLOOD 31 mg/dL (7-18)
[2023-06-03 09:42] LABS: ALANINE AMINOTRANSFERASE 8 U/L (12-78); ALKALINE PHOSPHATASE 305 U/L (46-116); ASPARTATE AMINOTRANSFERASE 36 U/L (15-37); BILIRUBIN,DIRECT 0.2 mg/dL (0.0-0.2); BILIRUBIN,TOTAL 0.7 mg/dL (0.2-1.0); TOTAL PROTEIN, SERUM 7.2 g/dL (6.4-8.2)
[2023-06-03 09:52] LABS: ALBUMIN 1.4 g/dL (3.4-5.0)
[2023-06-03] MEDS: IV NS 0.9% 500 ML BAG IV ONE (10:00)
[2023-06-03] MEDS: CEFEPIME 1 GM in IV D5W 50 ML IV ONE (10:00)
[2023-06-03 10:13] LABS: LACTIC ACID 2.3 mmol/L (0.4-2.0)
[2023-06-03] MEDS: VANCOMYCIN 1 GM in IV D5W 250 ML IV ONE (10:15)
[2023-06-03 10:22] LABS: BAND % (MANUAL) 3 % (0.0-5.0); LYMPHOCYTES % (MANUAL) 5 % (16-48); MONOCYTES % (MANUAL) 2 % (0-11.0); NEUTROPHILS % (MANUAL) 90 (42-76); PLATELET ESTIMATE ADEQUATE
[2023-06-03 10:23] LABS: ANISOCYTOSIS 2+; HYPOCHROMASIA 1+
[2023-06-03 10:24] LABS: TEAR DROP CELLS OCC
[2023-06-03 11:24] LABS: INR 1.13 (0.91-1.10); PARTIAL THROMBOPLASTIN TIME 32.8 SEC (24.3-34.3); PROTHROMBIN TIME 11.9 SECS (9.2-11.1)
[2023-06-03] MEDS ORDERED: IPRA3AMP23 IH (18:56)
[2023-06-03] MEDS ORDERED: NEUTRA-PHOS GT (18:56)
[2023-06-03] MEDS ORDERED: ACET-73 GT (18:56)
[2023-06-03 20:00] VITALS: BP 102/46; TEMP 97.9; O2SAT 97
[2023-06-03] MEDS ORDERED: MAGNESIUM HYDROXIDE 30 ML UDC GT PRN (23:00)
[2023-06-03] MEDS ORDERED: ACETAMINOPHEN 325 MG TABLET MC PRN (23:00)
[2023-06-03] MEDS ORDERED: ACETAMINOPHEN 325 MG TABLET PO PRN (23:00)
[2023-06-03] MEDS ORDERED: ENOXAPARIN SODIUM 40 MG/0.4 ML DISP.SYRIN SQ SCH (23:00)
[2023-06-03] MEDS ORDERED: POLYETHYLENE GLYCOL 3350 17 GM POWD.PACK GT PRN (23:00)
[2023-06-03] MEDS ORDERED: ACETAMINOPHEN ES 500 MG TABLET GT PRN (23:00)
[2023-06-03] MEDS ORDERED: Z GUARD REMEDY 4 OZ OINT TP PRN (23:00)
[2023-06-03] MEDS ORDERED: ONDANSETRON HCL/PF 4 MG/2 ML VIAL IVP PRN (23:00)
[2023-06-04] MEDS: BLOOD SUGAR DIAGNOSTIC 1 EACH STRIP IN SCH (00:41)
[2023-06-04] MEDS ORDERED: CEFEPIME 2 GM in IV D5W 100 ML IV SCH (05:00)
[2023-06-04 05:02] LABS: ABG BASE EXCESS -0.9 mmol/L; ABG OXYGEN SATURATION 96.3 % (92.0-98.5); ABG PCO2 42.3 mmHg (35.0-45.0); ABG PH 7.376 (7.350-7.450); ABG PO2 80.2 mmHg (75.0-100.0); ABG TOTAL HEMOGLOBIN 8.7 G/dL (12.0-16.0); COHb 0.3 % (0.5-1.5); MetHb 0.1 % (0.0-1.5); O2Hb 95.9 % (94.0-97.0); PEEP,BG 5 cm H2O; SITE, ABG Left Radial; VT, ABG 400 mL
[2023-06-04 07:00] VITALS: BP 112/59; TEMP 98; O2SAT 100
[2023-06-04] MEDS ORDERED: VANCOMYCIN 500 MG in IV D5W 100 ML IV PRN (07:30)
[2023-06-04 07:38] LABS: BASOPHILS % (AUTO) 0.1 % (0.0-2.0); EOSINOPHILS % (AUTO) 0.1 % (0.0-6.0); HEMATOCRIT 25 % (33-45); HEMOGLOBIN 7.3 g/dL (11.5-14.8); LYMPHOCYTES # (AUTO) 0.9 K/uL (0.8-4.8); LYMPHOCYTES % (AUTO) 2.1 % (20.0-44.0); MEAN CORPUSCULAR HEMOGLOBIN 27 PG (26.0-33.0); MEAN CORPUSCULAR HGB CONC 29 g/dl (31.0-36.0); MEAN CORPUSCULAR VOLUME 94 fL (82-100); MONOCYTES # (AUTO) 1.5 K/uL (0.1-1.30); MONOCYTES % (AUTO) 3.6 % (2.0-12.0); NEUTROPHILS # (AUTO) 39.3 K/uL (1.8-8.9); NEUTROPHILS % (AUTO) 94.1 % (43.0-81.0); PLATELET COUNT (AUTO) 191 K/uL (150-450); RED BLOOD CELL COUNT(AUTO) 2.66 MIL/uL (4.0-5.2); RED CELL DISTRIBUTION WIDTH 19.8 % (11.5-15.0)
[2023-06-04] MEDS: HEPARIN SODIUM, PORCINE 5000 UNITS/1 ML VIAL SQ ONE (08:22)
[2023-06-04 08:36] LABS: WHITE BLOOD COUNT (AUTO) 41.7 K/uL (4.3-11.0)
[2023-06-04 08:40] LABS: CHOLESTEROL 124 mg/dL (<200); HDL CHOLESTEROL 17 mg/dL (40-60); LDL 45 mg/dL (0-99); THYROID STIMULATING HORMONE 2.974 uIU/mL (0.358-3.74); TRIGLYCERIDES 178 mg/dL (30-150)
[2023-06-04] MEDS: INSULIN GLARGINE, 100 UNIT/ML CARTRIDGE SQ SCH (09:00)
[2023-06-04] MEDS ORDERED: NEPRO 1,000 ML BOTTLE GT PRN (09:00)
[2023-06-04] MEDS ORDERED: ASCORBIC ACID 250 MG TABLET NG SCH (09:00)
[2023-06-04] MEDS: PANTOPRAZOLE 40 MG/PACK PACK GT SCH (09:06)
[2023-06-04] MEDS: NYSTATIN TOP POWDER 15 GM BOTTLE TP SCH (09:06)
[2023-06-04] MEDS: AMIODARONE HCL 200 MG TABLET GT SCH (09:06)
[2023-06-04] MEDS: clonazePAM 0.5 MG TABLET GT SCH (09:07)
[2023-06-04] MEDS: CHLORHEXIDINE GLUCONATE 15 ML UDC MM SCH (09:07)
[2023-06-04] MEDS: FERROUS SULFATE (325 MG) 325 MG/TAB TABLET GT SCH (09:07)
[2023-06-04] MEDS: busPIRone 5 MG TABLET GT SCH (09:07)
[2023-06-04] MEDS: MIDODRINE HCL (5MG) 5 MG TABLET GT SCH (09:08)
[2023-06-04 09:18] LABS: IRON, SERUM 44 ug/dl (50-175); TOTAL IRON BINDING CAPACITY 173 ug/dl (250-450)
[2023-06-04] MEDS: ASCORBIC ACID 500 MG TABLET NG SCH (09:24)
[2023-06-04] MEDS: CEFEPIME 1 GM in IV D5W 50 ML IV SCH (09:25)
[2023-06-04] MEDS: IV NS 0.9% 1,000 ML IV PRN (09:33)
[2023-06-04] MEDS: POLYVINYL ALCOHOL 15 ML BOTTLE EACHEYE SCH (10:43)
[2023-06-04] MEDS: DAKINS QUARTER STRENGTH (0.125%) 480 ML BOTTLE TOP SCH ×2 (10:44→16:13)
[2023-06-04] MEDS: THERAHONEY GEL 1.5 OZ TUBE TP SCH ×2 (10:44→16:13)
[2023-06-04 11:45] VITALS: O2SAT 98
[2023-06-04 12:41] LABS: ALANINE AMINOTRANSFERASE 12 U/L (12-78); ALKALINE PHOSPHATASE 296 U/L (46-116); ASPARTATE AMINOTRANSFERASE 31 U/L (15-37); BILIRUBIN,TOTAL 0.6 mg/dL (0.2-1.0); CALCIUM, SERUM 9.2 mg/dL (8.5-10.1); CARBON DIOXIDE 26 mmol/L (21-32); CHLORIDE 103 mmol/L (98-107); CREATININE 1.5 mg/dL (0.6-1.3); MAGNESIUM 2.2 mg/dL (1.8-2.4); PHOSPHORUS 2.2 mg/dL (2.5-4.9); POTASSIUM 4.1 mmol/L (3.5-5.1); SODIUM SERUM 138 mmol/L (136-145); UREA NITROGEN, BLOOD 43 mg/dL (7-18)
[2023-06-04 12:58] LABS: GLUCOSE 215 mg/dL (74-106)
[2023-06-04 13:00] VITALS: BP 114/50; TEMP 98.9; O2SAT 97
[2023-06-04 14:03] LABS: BAND % (MANUAL) 5 % (0.0-5.0); LYMPHOCYTES % (MANUAL) 2 % (16-48); MONOCYTES % (MANUAL) 2 % (0-11.0); NEUTROPHILS % (MANUAL) 91 (42-76)
[2023-06-04 14:04] LABS: ANISOCYTOSIS 1+; PLATELET ESTIMATE ADEQUATE
[2023-06-04] MEDS: VANCOMYCIN 500 MG in IV D5W 100ml IV ONE (16:14)
[2023-06-04 16:15] VITALS: BP 132/50; TEMP 98.8; O2SAT 100
[2023-06-04] MEDS: K PHOS NEUTRAL 250 MG TABLET PO ONE (17:12)
[2023-06-04] MEDS: INSULIN REGULAR, HUMAN 100 UNIT/ML 3 ML VIAL SQ PRN (17:51)
[2023-06-04 20:00] VITALS: BP_SYST 119; BP_DIAS 55; BP_DIAS 74; TEMP 97.7; TEMP 97.9; O2SAT 100; O2SAT 99
[2023-06-04] MEDS ORDERED: HEPARIN SODIUM, PORCINE 5000 UNITS/1 ML VIAL SQ SCH (21:00)
[2023-06-04 21:08] VITALS: BP 119/55; TEMP 97.7; O2SAT 100
[2023-06-05] VITALS (10 sets, daily range): BP systolic 76–121; BP diastolic 36–56; TEMP 97.1–97.7; O2SAT 93–100
[2023-06-05] MEDS ORDERED: VANCOMYCIN 500 MG in IV D5W 100 ML IV PRN (06:00)
[2023-06-05 08:06] LABS: BASOPHILS % (AUTO) 0.1 % (0.0-2.0); CALCIUM, SERUM 8.8 mg/dL (8.5-10.1); CARBON DIOXIDE 23 mmol/L (21-32); CHLORIDE 102 mmol/L (98-107); EOSINOPHILS # (AUTO) 0.2 K/uL (0.0-0.7); EOSINOPHILS % (AUTO) 0.5 % (0.0-6.0); GLUCOSE 284 mg/dL (74-106); HEMATOCRIT 25 % (33-45); HEMOGLOBIN 7.1 g/dL (11.5-14.8); LYMPHOCYTES # (AUTO) 1.1 K/uL (0.8-4.8); LYMPHOCYTES % (AUTO) 2.9 % (20.0-44.0); MEAN CORPUSCULAR HEMOGLOBIN 27 PG (26.0-33.0); MEAN CORPUSCULAR HGB CONC 28 g/dl (31.0-36.0); MEAN CORPUSCULAR VOLUME 96 fL (82-100); MONOCYTES # (AUTO) 1.2 K/uL (0.1-1.30); MONOCYTES % (AUTO) 3.1 % (2.0-12.0); NEUTROPHILS # (AUTO) 37.2 K/uL (1.8-8.9); NEUTROPHILS % (AUTO) 93.4 % (43.0-81.0); PLATELET COUNT (AUTO) 231 K/uL (150-450); POTASSIUM 3.2 mmol/L (3.5-5.1); RED CELL DISTRIBUTION WIDTH 19.8 % (11.5-15.0); SODIUM SERUM 137 mmol/L (136-145); UREA NITROGEN, BLOOD 55 mg/dL (7-18)
[2023-06-05 08:27] LABS: WHITE BLOOD COUNT (AUTO) 39.8 K/uL (4.3-11.0)
[2023-06-05] MEDS: POTASSIUM CHLORIDE 20 MEQ POWDER PACKET PO ONE (10:56)
[2023-06-05 11:47] LABS: ANISOCYTOSIS 1+; BAND % (MANUAL) 9 % (0.0-5.0); EOSINOPHILS % (MANUAL) 1 % (0-4); LYMPHOCYTES % (MANUAL) 4 % (16-48); MONOCYTES % (MANUAL) 8 % (0-11.0); NEUTROPHILS % (MANUAL) 78 (42-76)
[2023-06-05 11:48] LABS: PLATELET ESTIMATE ADEQU
[2023-06-05] MEDS ORDERED: ACETAMINOPHEN 650 MG/20.3 ML UDC GT PRN (13:00)
[2023-06-05 16:17] LABS: PROTEIN, BODY FLUID 3.2 G/DL
[2023-06-05] MEDS: PROSOURCE / PROSTAT (PYXIS) 30 ML UDC GT SCH (16:53)
[2023-06-05] MEDS: VANCOMYCIN 500 MG in IV D5W 100ml IV ONE (17:45)
[2023-06-05] MEDS: NEPRO 1,000 ML BOTTLE GT PRN (18:37)
[2023-06-05 18:52] LABS: APPEARANCE,SPUN,BODY FLUID HAZY (CLEAR); TOTAL VOLUME,BODY FLUID 1000 mL
[2023-06-05] MEDS: MIDODRINE HCL (5MG) 5 MG TABLET GT PRN (20:23)
[2023-06-05] MEDS: IV NS 0.9% 1,000 ML IV ONE (20:29)
[2023-06-05 21:27] LABS: MONOCYTES,BODY FLUID 1 %
[2023-06-05 21:28] LABS: POLYNUCLEAR, BODY FLUID 95 % (0-25)
[2023-06-05] MEDS ORDERED: NOREPINEPHRINE 8MG/250ML RTU 250 ML IV ONE (23:01)
[2023-06-05] MEDS ORDERED: NOREPINEPHRINE 4 MG/4 ML AMPUL IV ONE (23:07)
[2023-06-05] MEDS: NOREPINEPHRINE 32 MG in IV NS 0.9% 218 ML IV PRN (23:14)
[2023-06-05] MEDS: NOREPINEPHRINE 4 MG/4 ML AMPUL IV ONE (23:17)
[2023-06-05] MEDS: NOREPINEPHRINE 8MG/250ML RTU 250 ML IV ONE (23:17)
[2023-06-05 23:40] LABS: EOSINOPHILS # (AUTO) 0.2 K/uL (0.0-0.7); EOSINOPHILS % (AUTO) 0.5 % (0.0-6.0); HEMATOCRIT 23 % (33-45); LYMPHOCYTES # (AUTO) 0.6 K/uL (0.8-4.8); LYMPHOCYTES % (AUTO) 1.8 % (20.0-44.0); MEAN CORPUSCULAR HEMOGLOBIN 28 PG (26.0-33.0); MEAN CORPUSCULAR HGB CONC 29 g/dl (31.0-36.0); MEAN CORPUSCULAR VOLUME 97 fL (82-100); MONOCYTES # (AUTO) 0.9 K/uL (0.1-1.30); MONOCYTES % (AUTO) 2.7 % (2.0-12.0); NEUTROPHILS # (AUTO) 30.9 K/uL (1.8-8.9); PLATELET COUNT (AUTO) 183 K/uL (150-450); RED BLOOD CELL COUNT(AUTO) 2.36 MIL/uL (4.0-5.2); RED CELL DISTRIBUTION WIDTH 19.8 % (11.5-15.0)
[2023-06-05 23:41] LABS: HEMOGLOBIN 6.7 g/dL (11.5-14.8); WHITE BLOOD COUNT (AUTO) 32.5 K/uL (4.3-11.0)
[2023-06-06] VITALS (97 sets, daily range): BP systolic 53–128; BP diastolic 20–71; TEMP 96.9–98; O2SAT 91–95
[2023-06-06 05:13] LABS: CALCIUM, SERUM 9.5 mg/dL (8.5-10.1); CARBON DIOXIDE 22 mmol/L (21-32); CHLORIDE 102 mmol/L (98-107); CREATININE 2.2 mg/dL (0.6-1.3); GLUCOSE 215 mg/dL (74-106); MAGNESIUM 1.9 mg/dL (1.8-2.4); PHOSPHORUS 3.5 mg/dL (2.5-4.9); POTASSIUM 3.5 mmol/L (3.5-5.1); SODIUM SERUM 135 mmol/L (136-145); UREA NITROGEN, BLOOD 64 mg/dL (7-18)
[2023-06-06 05:24] LABS: BASOPHILS % (AUTO) 0.1 % (0.0-2.0); HEMOGLOBIN 7.8 g/dL (11.5-14.8)
[2023-06-06 05:45] LABS: BASOPHILS # (AUTO) 0.1 K/uL (0.0-0.2); EOSINOPHILS # (AUTO) 0.3 K/uL (0.0-0.7); EOSINOPHILS % (AUTO) 0.6 % (0.0-6.0); HEMATOCRIT 27 % (33-45); LYMPHOCYTES # (AUTO) 0.7 K/uL (0.8-4.8); LYMPHOCYTES % (AUTO) 1.4 % (20.0-44.0); MEAN CORPUSCULAR HEMOGLOBIN 28 PG (26.0-33.0); MEAN CORPUSCULAR HGB CONC 29 g/dl (31.0-36.0); MEAN CORPUSCULAR VOLUME 96 fL (82-100); MONOCYTES # (AUTO) 0.9 K/uL (0.1-1.30); MONOCYTES % (AUTO) 1.8 % (2.0-12.0); NEUTROPHILS # (AUTO) 46.2 K/uL (1.8-8.9); NEUTROPHILS % (AUTO) 96.1 % (43.0-81.0); PLATELET COUNT (AUTO) 270 K/uL (150-450); RED CELL DISTRIBUTION WIDTH 19.8 % (11.5-15.0)
[2023-06-06 05:47] LABS: WHITE BLOOD COUNT (AUTO) 48.1 K/uL (4.3-11.0)
[2023-06-06 06:59] LABS: BAND % (MANUAL) 6 % (0.0-5.0); LYMPHOCYTES % (MANUAL) 2 % (16-48); NEUTROPHILS % (MANUAL) 88 (42-76)
[2023-06-06 07:00] LABS: ANISOCYTOSIS 1+; HYPOCHROMASIA 1+; METAMYELOCYTES % 2 % (0-0); MONOCYTES % (MANUAL) 1 % (0-11.0); MYELOCYTES % 1 % (0-0); PLATELET ESTIMATE ADEQUATE
[2023-06-06 07:13] LABS: BAND % (MANUAL) 4 % (0.0-5.0); LYMPHOCYTES % (MANUAL) 2 % (16-48); METAMYELOCYTES % 1 % (0-0); MONOCYTES % (MANUAL) 2 % (0-11.0); NEUTROPHILS % (MANUAL) 91 (42-76)
[2023-06-06 07:14] LABS: PLATELET ESTIMATE ADEQUATE
[2023-06-06 07:15] LABS: ANISOCYTOSIS 1+
[2023-06-06] MEDS ORDERED: ASCORBIC ACID 500 MG TABLET PO SCH (09:00)
[2023-06-06] MEDS: VIT B CMPLX 3/FA/VIT C/BIOTIN 1 TAB TABLET PO SCH (09:11)
[2023-06-06] MEDS: ZINC SULFATE 220 MG CAPSULE PO SCH (09:13)
[2023-06-06] MEDS: PHENYLEPHRINE 100 MG in IV NS 0.9% 240 ML IV PRN (14:21)
[2023-06-06] MEDS: MIDODRINE HCL (5MG) 5 MG TABLET GT SCH (17:29)
[2023-06-06] MEDS: VANCOMYCIN 500 MG in IV D5W 100 ML IV PRN (18:34)
[2023-06-06] MEDS: VASOPRESSIN INJ 40 UNIT in IV NS 0.9% 38 ML IV PRN (19:40)
[2023-06-06] MEDS: DEXTROSE 50%-WATER 50 ML DISP.SYRIN IV PRN (23:25)
[2023-06-07] VITALS (33 sets, daily range): BP systolic 48–98; BP diastolic 24–78; TEMP 96.6–97.6; O2SAT 80–99
[2023-06-07 01:26] LABS: HEMOGLOBIN 7.6 g/dL (11.5-14.8)
[2023-06-07 01:36] LABS: CALCIUM, SERUM 9.2 mg/dL (8.5-10.1); CARBON DIOXIDE 19 mmol/L (21-32); CHLORIDE 105 mmol/L (98-107); CREATININE 2.3 mg/dL (0.6-1.3); GLUCOSE 105 mg/dL (74-106); MAGNESIUM 1.8 mg/dL (1.8-2.4); POTASSIUM 3.8 mmol/L (3.5-5.1); SODIUM SERUM 138 mmol/L (136-145); UREA NITROGEN, BLOOD 55 mg/dL (7-18)
[2023-06-07 02:03] LABS: BASOPHILS # (AUTO) 0.3 K/uL (0.0-0.2); BASOPHILS % (AUTO) 0.6 % (0.0-2.0); EOSINOPHILS # (AUTO) 0.5 K/uL (0.0-0.7); HEMATOCRIT 28 % (33-45); LYMPHOCYTES # (AUTO) 0.7 K/uL (0.8-4.8); LYMPHOCYTES % (AUTO) 1.3 % (20.0-44.0); MEAN CORPUSCULAR HEMOGLOBIN 27 PG (26.0-33.0); MEAN CORPUSCULAR HGB CONC 27 g/dl (31.0-36.0); MEAN CORPUSCULAR VOLUME 100 fL (82-100); MONOCYTES % (AUTO) 3.8 % (2.0-12.0); NEUTROPHILS # (AUTO) 48.8 K/uL (1.8-8.9); NEUTROPHILS % (AUTO) 93.3 % (43.0-81.0); PLATELET COUNT (AUTO) 230 K/uL (150-450); RED BLOOD CELL COUNT(AUTO) 2.79 MIL/uL (4.0-5.2); RED CELL DISTRIBUTION WIDTH 20.3 % (11.5-15.0)
[2023-06-07 02:04] LABS: WHITE BLOOD COUNT (AUTO) 52.3 K/uL (4.3-11.0)
[2023-06-07 07:01] LABS: BAND % (MANUAL) 5 % (0.0-5.0); LYMPHOCYTES % (MANUAL) 1 % (16-48); METAMYELOCYTES % 2 % (0-0); MONOCYTES % (MANUAL) 4 % (0-11.0); MYELOCYTES % 1 % (0-0); NEUTROPHILS % (MANUAL) 87 (42-76)
[2023-06-07 07:02] LABS: ANISOCYTOSIS 1+; PLATELET ESTIMATE INCREASED
[2023-06-07] MEDS: VASOPRESSIN INJ 20 UNIT/ML VIAL ONE (07:34)
[2023-06-07 08:01] LABS: ABG BASE EXCESS -8.5 mmol/L; ABG OXYGEN SATURATION 98.8 % (92.0-98.5); ABG PCO2 54.4 mmHg (35.0-45.0); ABG PH 7.177 (7.350-7.450); ABG TOTAL HEMOGLOBIN 9.6 G/dL (12.0-16.0); COHb 1.3 % (0.5-1.5); MetHb 0.2 % (0.0-1.5); O2Hb 97.3 % (94.0-97.0); SITE, ABG Left Radial; VENT MODE, BG AC 22 400 60% +5
[2023-06-07] MEDS ORDERED: EPINEPHRINE (1:10,000) SYRINGE 1 MG/10 ML DISP.SYRIN IVP ONE (09:02)
== END 2023-06-07 08:58 | DRG 871 ==
LOC: ER 08:55 → TELE 13:58 → ICU 06-05 22:39
PROVIDERS: ADMIT Nurse Practitioner Acute Care; ATTEND Nurse Practitioner Acute Care
PROC: 5A1945Z Respiratory Ventilation, 24-96 Consecutive Hours (ICD-10-PCS; principal; 2023-06-03)
PROC: 0W9B3ZX Drainage of Left Pleural Cavity, Percutaneous Approach, Diagnostic (ICD-10-PCS; 2023-06-05)
PROC: 5A1D70Z Performance of Urinary Filtration, Intermittent, Less than 6 Hours Per Day (ICD-10-PCS; 2023-06-06)
PROC: 5A2204Z Restoration of Cardiac Rhythm, Single (ICD-10-PCS; 2023-06-07)
DX: A41.9 Sepsis, unspecified organism (principal); G93.41 Metabolic encephalopathy; L89.104 Pressure ulcer of unspecified part of back, stage 4; L89.153 Pressure ulcer of sacral region, stage 3; N18.6 End stage renal disease; R53.2 Functional quadriplegia; J15.69 Pneumonia due to other Gram-negative bacteria; K83.1 Obstruction of bile duct; R65.21 Severe sepsis with septic shock; E44.0 Moderate protein-calorie malnutrition; I13.2 Hypertensive heart and chronic kidney disease with heart failure and with stage 5 chronic kidney disease, or end stage renal disease; F03.94 Unspecified dementia, unspecified severity, with anxiety; J94.2 Hemothorax; J90 Pleural effusion, not elsewhere classified; D68.59 Other primary thrombophilia; Z99.11 Dependence on respirator [ventilator] status; F03.93 Unspecified dementia, unspecified severity, with mood disturbance; Z68.41 Body mass index [BMI] 40.0-44.9, adult; G93.1 Anoxic brain damage, not elsewhere classified; E87.20 Acidosis, unspecified; J96.11 Chronic respiratory failure with hypoxia; N17.9 Acute kidney failure, unspecified; E11.22 Type 2 diabetes mellitus with diabetic chronic kidney disease; I95.3 Hypotension of hemodialysis; I50.9 Heart failure, unspecified; Z93.1 Gastrostomy status; Z93.0 Tracheostomy status; R13.10 Dysphagia, unspecified; L89.610 Pressure ulcer of right heel, unstageable; E78.5 Hyperlipidemia, unspecified; Z85.038 Personal history of other malignant neoplasm of large intestine; F41.9 Anxiety disorder, unspecified; Z74.01 Bed confinement status; Z88.0 Allergy status to penicillin; Z88.6 Allergy status to analgesic agent; Z88.5 Allergy status to narcotic agent; Z88.8 Allergy status to other drugs, medicaments and biological substances; D64.9 Anemia, unspecified; Z79.4 Long term (current) use of insulin; Z79.899 Other long term (current) drug therapy; E87.6 Hypokalemia; E88.09 Other disorders of plasma-protein metabolism, not elsewhere classified; M24.571 Contracture, right ankle; M24.572 Contracture, left ankle; Z99.2 Dependence on renal dialysis; I48.0 Paroxysmal atrial fibrillation; Z86.74 Personal history of sudden cardiac arrest; F32.A Depression, unspecified; Z79.51 Long term (current) use of inhaled steroids; S91.109A Unspecified open wound of unspecified toe(s) without damage to nail, initial encounter; X58.XXXA Exposure to other specified factors, initial encounter; Y92.9 Unspecified place or not applicable; L98.9 Disorder of the skin and subcutaneous tissue, unspecified; L89.326 Pressure-induced deep tissue damage of left buttock; E66.01 Morbid (severe) obesity due to excess calories; S41.111A Laceration without foreign body of right upper arm, initial encounter; Y95 Nosocomial condition
CPT/HCPCS: 31720; 36415; 36600; 71045-TC; 76604-TC; 80048-TC; 80053-TC; 80061-TC; 80076-TC; 80202-TC; 82803-TC; 82962-TC; 83540-TC; 83605-TC; 83735-TC; 84100-TC; 84443-TC; 84484-TC; 85025-TC; 85730-TC; 86850-TC; 87040-TC; 87102-TC; 87186-TC; 89051-TC; 90935-TC; 92950-TC; 93307-TC; 93971-TC; 94002-TC; 94003-TC; 94640-TC; 94760-TC; 94762-TC; 94799-TC; 99082-TC; A4223; A4623; A6253; A6403; A7526; G0378; J0171; J0692; J1644; J1815; J3370; J3490; J7030; J7040; J7050; J7060